=== PATIENT | female | born 1995 | race African-American/Black ===

== ENCOUNTER 2021-03-26 18:00 | Inpatient (IN) | payer OTHER, SELFPAY ==
[2021-03-26 18:14] VITALS: BP 155/73; PULSE 102; RESP 16; TEMP 36.6; O2SAT 92; BMI 56.5
[2021-03-26 18:21] VITALS: BP 155/73; PULSE 102; RESP 16; TEMP 36.6; O2SAT 92
--- NOTE | 2021-03-26 18:40 | ED_ITS ---
HPI - Psych General Chief Complaint: Psychiatric Symptoms Stated Complaint: Crisis Time Seen by Provider: 03/26/21 18:39 Source: patient Mode of arrival: ambulatory Limitations: no limitations History of Present Illness HPI Narrative: 25-year-old female came in for psych evaluation. This is a patient with a history of schizoaffective disorder, PTSD, normally take antipsychotic medication, patient weaned herself of the psych medicine for the past 8 days, came in with complaint of auditory hallucination hearing voices telling her to hurt herself, patient feel suicidal, patient had a strong past history of suicidal attempt by overdose on medications. Patient declined using any recreational drugs. Patient has no headache, no blurry vision, no chest pain, no coughing, no abdominal pain, no nausea, no vomiting, or diarrhea. Related Data Allergies Allergy/AdvReac Type Severity Reaction Status Date / Time tree nut Allergy Anaphylaxis Verified 03/26/21 18:24 Review of Systems Review of Systems: All other systems are reviewed and are negative Constitutional: Reports as per HPI and Reports no additional constitutional complaints Eyes: Reports as per HPI and Reports no additional eye complaints Reports system reviewed and no additional complaints, except as documented Cardiovascular: Reports as per HPI and Reports no additional cardiovascular complaints Respiratory: Reports as per HPI and Reports no additional respiratory complaints Gastrointestinal: Reports as per HPI and Reports no additional gastrointestinal complaints Genitourinary: Reports no additional female genitourinary complaints Musculoskeletal: Reports no additional musculoskeletal complaints Skin/Breast: Reports system reviewed and no additional complaints, except as docu Psychiatric: Reports no additional psychiatric complaints Endocrine: Reports no additional endocrine complaints Hematologic/Lymphatic: Reports no additional hematologic/lymphatic complaints Allergic/Immunologic: Reports no additional allergic/immunologic complaints Reports system reviewed and no additional complaints, except as documented and Reports Abnormal speech present [facility] Past Medical History Medical History Anxiety Continuous auditory hallucinations Depression Suicidal ideations Surgical History No pertinent past surgical history Social History Social History Alcohol intake: unknown Smoked in Last 30 Days: No Use of substances other than those prescribed or required for medical reasons: No Patient : No Physical Exam Vital Signs: Vital Signs: Last Vital Signs Temp 97.9 F 03/26/21 18:21 Pulse 102 H 03/26/21 18:21 Resp 16 03/26/21 18:21 BP 155/73 H 03/26/21 18:21 Pulse Ox 92 03/26/21 18:21 BMI result Body Mass Index 56.5 vital signs have been reviewed as appeared to be correct. Blood pressure Elevated. Heart rate elevated. Respiration rate normal. Temperature normal. Oxygen saturation normal. Appearance: Alert. Oriented X3. No acute distress. Head: Normal external exam. Normocephalic. Atraumatic. No Cox signs noted. No raccoon eyes noted Eyes: PERRLA. EOMI. Conjunctiva and sclera normal. Eyelids normal. ENT: TM's Normal. Pharynx normal. Uvula midline. Moist mucous membranes. No trismus noted. No drooling noted. No muffled voice noted. Neck: Normal inspection. Neck supple. FROM. No adenopathy. Thyroid Normal. No meningeal signs. No neck mass noted. CVS: Normal heart rate and rhythm. Heart sound normal. No murmurs noted. Pulses normal throughout. Respiratory: No respiratory distress. Painless inspiration. Breath sounds normal. No wheezes/rales/rhonchi noted. Chest nontender. No accessory muscle usage noted or decreased air movement noted. Abdomen: Soft and nontender. Bowel sounds normal in all 4 quadrants. No distention noted. No organomegaly noted. No visible injury noted. Back: No CVA tenderness. Full range of motion noted. Skin: Skin warm and dry. Normal skin color. Normal skin turgor. No rashes/lesions/lacerations noted. Extremities: No lower extremity edema. Extremities exhibit normal range of motion. Extremities nontender. Neuro: Oriented X 3. Cranial nerve exam: II-XII are grossly intact No motor deficit. No sensory deficit. Reflexes normal. Patient Appearance: Appropriate Patient Orientation: Person, Place, Time and Situation Level of Consciousness: Awake, Appropriate and Alert Patient Behavior: Talkative, Cooperative. Mood Description: Depressed. Affect Description: Flat. Patient Cognition Impaired: No Ability to Follow Directions: Good Speech Pattern: Spontaneous Speech Memory Description: Intact Hallucinations: auditory hallucination present. Delusions: Not Present Thought Process: Logical. Thought Content: Unremarkable Depressive Symptoms: Increased anxiety. Judgement: poor. Course Course Course Narrative: assessment and plan. 25-year-old female came in for a psych evaluation, patient is medically cleared awaiting for PH evaluation patient will be under physician observation. Reevaluation(s) Reevaluation #1: Physician observation started at 20:00 . Patient placed in physician observation because the patient needed more time for medication to work and to see PT/case management for evaluation and the need for placement patient's vital sign were stable, patient is alert and oriented , neuro exam unchanged, unremarkable rest of physical exam. Time: 20:00 Discharge Plan Discharge Clinical Impression: Suicidal ideation, Depression, Acute anxiety, Schizoaffective disorder
[2021-03-26 19:16] LABS: Appearance Urine CLEAR; Color Urine YELLOW; Glucose Urine UA NEG (NEG); Leukocyte Esterase Urine TRACE (NEG); Nitrite Urine NEG (NEG); Specific Gravity - Urine 1.025 (1.005-1.025); UACC Culture Trigger YES; Urine Blood 1+ (NEG); Urine Ketones NEG (NEG); Urine Protein TRACE MG/DL (NEG-TRACE)
[2021-03-26 19:18] LABS: UPreg QC Valid YES; Urine Pregnancy NEGATIVE (NEGATIVE)
[2021-03-26 19:27] LABS: Bacteria Urine TRACE /LPF; Squamous Epithelial Cell Urine 2+ /LPF
[2021-03-26 19:28] LABS: Mucus Urine 1+ /LPF
[2021-03-26] MEDS: LORazepam 1 MG TABLET PO (19:30)
[2021-03-26 19:37] LABS: COVID-19 Test Negative (Negative); IDNOW Serial# 9DD0AD1C
--- NOTE | 2021-03-26 19:40 | PC.NURSE ---
PT is calm and cooperative, politely requested the remote to watch TV in her room. Labs drawn. PT needs referral and crisis consult.
[2021-03-26 19:44] LABS: MANUAL DIFF FLAG NO
[2021-03-26 19:46] LABS: Basophils Percent Auto 0.3 % (0-2); Eosinophils Absolute Auto 0.3 X10*3/uL (0.0-0.4); Eosinophils Percent Auto 2.9 % (0-4); Hematocrit 39.1 % (37.0-47.0); Hemoglobin 13.2 g/dl (12.0-16.0); Imm Gran Abs Auto 0.02 X10*3/uL (0.00-0.03); Imm Gran Pct Auto 0.2 % (0.0-0.4); Lymphocytes Absolute Auto 2.8 X10*3/uL (1.2-4.9); Lymphocytes Percent Auto 32.4 % (20-40); Mean Corpuscular HGB Conc 33.8 g/dl (31.0-35.0); Mean Corpuscular Hemoglobin 29.8 pg (27.0-33.0); Mean Corpuscular Volume 88.3 fL (80.0-98.0); Mean Platelet Volume 9.7 fL (9.4-12.3); Monocytes Absolute Auto 0.5 X10*3/uL (0.1-1.2); Monocytes Percent Auto 5.4 % (2-11); Neutrophils Absolute Auto 5.1 x10*3/uL (2.0-8.3); Neutrophils Percent Auto 58.8 % (45-73); Platelet Count 335 X10*3/uL (160-400); Red Blood Count 4.43 X10*6/uL (4.20-5.50); Red Cell Distribution Width 11.5 % (11.0-16.0); White Blood Count 8.7 X10*3/uL (4.8-10.8)
[2021-03-26 19:59] LABS: Ethanol < 10 mg/dL
[2021-03-26 20:02] LABS: Alanine Aminotransferase 37 U/L (0-31); Albumin Level 4.1 g/dL (3.5-5.0); Alkaline Phosphatase 130 U/L (39-117); Anion Gap 14 (12-20); Aspartate Amino Transferase 24 U/L (5-31); Bilirubin Total 0.2 mg/dL (0.0-1.0); Blood Urea Nitrogen 13 mg/dL (9-16); Calcium 9.5 mg/dL (8.4-10.2); Carbon Dioxide 23 mmol/L (22-29); Chloride 110 mmol/L (96-108); Creatinine Clr Calc Pharmacy 166.9; Estimated Glomerular Filt Rate > 60; Glucose Random 104 mg/dL (60-115); Potassium 3.8 mmol/L (3.3-5.1); Sodium 143 mmol/L (135-145); Total Protein 7.1 g/dL (6.5-8.0)
[2021-03-26 21:28] LABS: Amphetamine Screen Urine Not Detected (Not Detect); Barbiturates, Urine Not Detected (Not Detect); Benzodiazepines Screen Urine Not Detected (Not Detect); Cannabinoid Screen Urine Not Detected (Not Detect); Cocaine Screen Urine Not Detected (Not Detect); Fentanyl, urine Not Detected (Not Detect); Opiate Screen Urine Not Detected (Not Detect); Phencyclidine Screen Urine Not Detected (Not Detect)
--- NOTE | 2021-03-26 23:17 | PC.NURSE ---
This RN spoke with provider about concerns for restarting medications after PT discontinued meds 8 days ago, with special consideration to antipsychotics. Dr. Paez agreed that we hold meds until PT received psychiatric eval. PT has received Ativan for anxiety and is sleeping comfortably in bed at this time.
[2021-03-27 06:14] VITALS: BP 132/72; PULSE 65; RESP 16; TEMP 37.2; O2SAT 99
--- NOTE | 2021-03-27 09:40 | PC.NURSE ---
Addendum entered by Mariann Garcia RN 03/27/21 09:46: As per ISHAAN, prozac 30mg to be given now and hold 60mg until tomorrow. As well as oxcarbazepine 300mg to be given now and to hold 600mg until tomorrow. Original Note: ISHAAN Fuller made aware that pt has been off her medications for the past 8 days and that pt has ordered medications that were questionable. Medication orders modified by ISHAAN and carried out by this RN.
[2021-03-27 10:25] VITALS: BP 115/65; PULSE 70; RESP 16; TEMP 36.9; O2SAT 98
[2021-03-27] MEDS: Gabapentin 100 MG CAPSULE PO ×2 (10:40→12:54)
[2021-03-27] MEDS: FLUoxetine HCl 10 MG CAPSULE 30 MG PO (10:40)
[2021-03-27] MEDS: metFORMIN HCl ER 500 MG TAB.ER.24H PO (10:41)
[2021-03-27] MEDS: Loratadine 10 MG TABLET PO (10:42)
[2021-03-27] MEDS: hydrOXYzine HCL 50 MG TABLET PO (10:42)
[2021-03-27] MEDS: OXcarbazepine 300 MG TABLET PO ×2 (10:42→12:32)
--- NOTE | 2021-03-27 10:52 | PC.NURSE ---
Pt refused naproxen and hydroxyzine as she states both medications are PRN. During morning medication pass, pt stated that her med rec is incorrect and she denied that she has been off her medications for the past 8 days.
--- NOTE | 2021-03-27 10:57 | PC.NURSE ---
Pt given breakfast tray, sat up and tolerated well
--- NOTE | 2021-03-27 11:18 | PC.NURSE ---
ISHAAN Fuller made aware that pt is stating that she has been taking her medications for the past 8 days and is requesting dosage changes for her ordered prozac, gabapentin. PA stated gabapentin orders will remain the same however prozac orders are now reordered for 60mg D. Pharmacy made aware of changes and pharmacist stated they would like to double check on pt's med rec as well. RN will continue to monitor.
--- NOTE | 2021-03-27 11:53 | PHA.MEDREC ---
Pharmacy Consult ? Medication Reconciliation Pharmacy has completed the medication reconciliation. Spoke with patient in [facility]. Patient knew all of her medications right down to the dose and frequency. She reported last taking her medications yesterday. Patient reported Latuda ( taper) and fluphenazine were stopped. Pt took one dose of fluconazole 150 mg 1 week ago. Her trileptal dose was increased from 450 mg BID to 600 mg BID.
[2021-03-27] MEDS: FLUoxetine HCl 20 MG CAPSULE 60 MG PO (12:10)
[2021-03-27] MEDS: Fluconazole 150 MG TABLET PO (13:11)
[2021-03-27 15:16] VITALS: BP 148/82; PULSE 86; RESP 20; TEMP 37.6; O2SAT 95
--- NOTE | 2021-03-27 15:46 | PC.NURSE ---
Pt up to nursing station requesting her ears to be checked, as her increased ear wax accumulation can irritate her auditory hallucinations. ISHAAN Rodriguez at bedside and received PO PRN tylenol for ears.
--- NOTE | 2021-03-27 15:55 | PC.NURSE ---
LESLIE Perez at bedside for reevaluation
[2021-03-27] MEDS: Gabapentin 100 MG CAPSULE 200 MG PO ×2 (16:20→21:18)
[2021-03-27] MEDS: LORazepam 0.5 MG TABLET PO (16:20)
[2021-03-27] MEDS: Acetaminophen 325 MG TABLET 650 MG PO (16:20)
--- NOTE | 2021-03-27 16:34 | PC.NURSE ---
Post [facility] reevaluation by darren Perez, pt to be reevaulated some time tomorrow, as pt states she wants to go home but wants to go with prescriptions for anti-psychotics. Pt is from [facility] ([phone]) and her psychiatrist can be reached at ([phone]). Also as per screensivan Perez, pt's medications were stopped cold as per her psychiatrist as pt herself stated she no longer wanted to take them... unknown when the exact date of this was. Pt at this time was given ordered PRN medications and RN will continue to monitor.
--- NOTE | 2021-03-27 18:47 | PC.NURSE ---
Pt received dinner tray at this time
[2021-03-27] MEDS: OXcarbazepine 300 MG TABLET 600 MG PO (21:18)
[2021-03-27] MEDS: Melatonin 3 MG TABLET PO (21:18)
--- NOTE | 2021-03-27 21:25 | PC.NURSE ---
pt took all her meds with no difficutly, pt states she is hearing voices talking to each other, no thoughts of harming self or others at this time. pt awake sitting in her room, pt has been on the phone earlier and had pleasant conversations very upbeat.
--- NOTE | 2021-03-28 05:39 | PC.NURSE ---
Patient slept though the night, no distress observed/reported, medication compliant per report, VSS, behavior appropriate mostly at time can be manipulative, patient was seen by [facility], disposition voluntary inpatient bed search, per care team patient is pre-accepted to [facility], will continue to monitor.
[2021-03-28 06:31] VITALS: BP 137/60; PULSE 83; RESP 17; TEMP 36.6; O2SAT 96
[2021-03-28] MEDS: FLUoxetine HCl 20 MG CAPSULE 60 MG PO (09:59)
[2021-03-28] MEDS: Gabapentin 100 MG CAPSULE 200 MG PO ×3 (09:59→21:11)
[2021-03-28 10:00] VITALS: BP 132/96; PULSE 77; RESP 16; TEMP 36.6; O2SAT 97
[2021-03-28] MEDS: OXcarbazepine 300 MG TABLET 600 MG PO ×3 (10:00→21:30)
[2021-03-28] MEDS: Loratadine 10 MG TABLET PO (10:03)
[2021-03-28] MEDS: metFORMIN HCl ER 500 MG TAB.ER.24H PO (10:44)
--- NOTE | 2021-03-28 13:29 | PC.NURSE ---
report given to Veronique on [facility], staff from [facility] will come to ED Pod to transport pt to [facility]. Pt aware of plan.
--- NOTE | 2021-03-28 13:42 | ECG_ITS ---
Test Reason : MEDCLEARANCE Blood Pressure : / mmHG Vent. Rate : 081 BPM Atrial Rate : 081 BPM P-R Int : 176 ms QRS Dur : 076 ms QT Int : 386 ms P-R-T Axes : 056 031 017 degrees QTc Int : 448 ms Normal sinus rhythm Normal ECG No previous ECGs available Referred By: Rodrigue Thibodeaux Electronically Signed By:SOY PAZ MD
[2021-03-28] MEDS: LORazepam 0.5 MG TABLET PO ×2 (16:47→17:53)
[2021-03-28 17:00] VITALS: BP 129/83; PULSE 88; TEMP 36.6; O2SAT 96
[2021-03-28 19:28] VITALS: BMI 51.2
[2021-03-28] MEDS: Melatonin 3 MG TABLET PO (21:12)
[2021-03-28] MEDS: hydrOXYzine HCL 25 MG TABLET PO (21:14)
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
[2021-03-28] MEDS: LORazepam 1 MG TABLET PO (22:55)
--- NOTE | 2021-03-29 01:02 | PC.ADMIT ---
Patient is a 25 year old single -[place] female admitted as a CV admission to at 1509 on 03/28/2021 from the [facility]. She was living in a jail but has not been wanting to take her antipsychotic medications and has started to decompensate. Patient has been experiencing SI with a plan to jump off a parking garage or hang herself. She has a long history of Schizoaffective disorder with many IPLOC to local hospitals and places in [place]. Patient claimed she has had about 20 suicide attempts. Patient also said that she has AH and VH that bother her most of the time. She said there are two male voices that tell me I should harm myself and others .' Patient also spoke about her IBS and problems swallowing. Apparently she has a barium swallow scheduled in April of 2021. During the admission process patient contracted for safety, while on the unit, and spoke about the medications that she feels that she needs to keep her calm. Patient was able to sign all of the paperwork and answer all of the questions. She said both her anxiety and depression are high . Denies any SI or HI. She was able to take a shower and make phone calls. Patient cooperative and in NAD at the end of the shift. Patient will be on 15 minute checks.
[2021-03-29 08:24] LABS: Estimated Average Glucose 103 mg/dL; Hemoglobin A1c % 5.2 %
[2021-03-29 08:40] LABS: Cholesterol 217 mg/dL; HDL Cholesterol 42 mg/dL; LDL Cholesterol Calculated 160 mg/dl; Triglycerides 75 mg/dL
[2021-03-29 09:03] LABS: Free T4 (Free Thyroxine) 0.89 ng/dL (0.71-1.85); Thyroid Stimulating Hormone 1.59 uIU/mL (0.32-4.0)
[2021-03-29] MEDS: metFORMIN HCl ER 500 MG TAB.ER.24H PO (09:35)
[2021-03-29] MEDS: Gabapentin 100 MG CAPSULE 200 MG PO ×3 (09:35→19:19)
[2021-03-29] MEDS: OXcarbazepine 300 MG TABLET 600 MG PO (09:35)
[2021-03-29] MEDS: Loratadine 10 MG TABLET PO (09:35)
[2021-03-29] MEDS: FLUoxetine HCl 20 MG CAPSULE 60 MG PO (09:35)
--- NOTE | 2021-03-29 10:02 | PC.NURSE ---
patient denies ever being a smoker and will not require replacement. Patient was offered the flu vaccination and declined, stating she already had it this year.
[2021-03-29 10:29] LABS: Folate 10.7 ng/mL (> or = 4.0); Vitamin B12 863 pg/mL (200-900)
[2021-03-29] MEDS: Perphenazine 4 MG TABLET PO ×2 (14:44→18:13)
[2021-03-29] MEDS: LORazepam 1 MG TABLET PO (17:40)
--- NOTE | 2021-03-29 19:11 | HO.PSYCHPN ---
Subjective Subjective Date of Service: 03/29/21 Reason For Visit: PTSD; Schizoaffective disorder Subjective Notes: Conditional Voluntary Healthcare Proxy: No Guardianship: No Medical Problems Affecting Mental Status: No Interim History: Met with pt who reports several trials as reviewed with Katherine Cochran NP on 03/28/21. Pt reports, by history, antispychotics are helpful for her, however, identifies improved result with typical vs atypical agents. She reports she felt clearest on Trilafon, Prolixin, Haldol, however, believes Trilafon, Prolixin may not have been titrated to achieve maximum efficacy. Pt requests to address symptoms, she is cautious about side effects and would like a short stay. She asks to trial Trilafon again. Discussed 4 mg tid with one prn 4 mg with titration on 03/30 as tolerated which she agrees with. Discussion continued regarding MENDEZ. Discussed Sustenna, Prolixin, Haldol Dec. She is not wanting a trial of Maintena but will consider. She requests we being with one agent-will titrate Trilafon and [id number] parameters with pt. Medication Compliance: No Side effects from medications: Yes (reported by history) Attending Groups: No Review of Systems Acute medical concerns: No Medical Review of Systems: unchanged Review of Systems Reports behavioral changes Psychiatric: Reports anxiety, Reports behavioral changes, Reports difficulty concentrating, Reports auditory hallucinations (denies), Reports irritability, Reports paranoia (at times), Reports homicidal ideation (denies) and Reports suicidal ideation (denies) Mental Status Exam Mental Status Exam Patient Appearance: Fatigued Patient Orientation: Person, Place, Time and Situation Level of Consciousness: Alert Patient Behavior: Appropriate, Talkative, Cooperative, Anxious, Fatigued and Good Eye Contact Mood Description: Withdrawn and Constricted Affect Description: Constricted Patient Cognition Impaired: No Ability to Follow Directions: Good Speech Pattern: Spontaneous Speech Memory Description: Episodic Impaired Hallucinations: None (denies) Delusions: Paranoid Ideation (at times she reports) Thought Process: Distracted Thought Content: positive for Perseveration, positive for Tangential (mild), positive for Suicidal Ideation (denies) and positive for Homicidal Ideation (denies) Depressive Symptoms: Increased Anxiety, Diff. Making Decisions, Increased Irritability, Difficulty Sleeping, Sleeping More Than Usual, Increased Fatigue and Loss of Energy Judgement: Fair Diagnostics Vital Signs (24Hr): BMI result Body Mass Index 51.2 Labs Results: 03/26/21 19:37 03/26/21 19:37 Labs: Laboratory Results - last 48 hr 03/29/21 03/29/21 03/29/21 07:56 07:56 07:56 Estimat Average Glucose 103 Hemoglobin A1c % 5.2 Magnesium 2.0 Triglycerides 75 Cholesterol 217 LDL Cholesterol, Calc 160 HDL Cholesterol 42 Vitamin B12 863 Folate 10.7 TSH 1.59 Free T4 0.89 Medications Medications Current Medications Al Hydroxide/Mg Hydroxide (Magnesium Hydrox/Alum Hydrox 30 Ml Oral.Susp) 30 ml PO Q6H PRN PRN Reason: Heartburn/Nausea Albuterol Sulfate (Albuterol Sulfate 90 Mcg 8 Gm Inhaler) 2 puff INHALE RQ4H PRN PRN Reason: Shortness Of Breath Fluoxetine HCl (Fluoxetine Hcl 20 Mg Capsule) 60 mg PO DAILY [facility] Last Admin: 03/29/21 09:35 Dose: 60 mg Documented by: Fluticasone/Vilanterol (Fluticasone/Vilanterol 100/25 Blst.W.Dev) 1 puff INHALE DAILY [facility] Last Admin: 03/29/21 09:38 Dose: Not Given Documented by: Gabapentin (Gabapentin 100 Mg Capsule) 200 mg PO TID [facility] Last Admin: 03/29/21 14:44 Dose: 200 mg Documented by: Hydroxyzine HCl (Hydroxyzine Hcl 50 Mg Tablet) 50 mg PO TID PRN PRN Reason: anxiety Hydroxyzine HCl (Hydroxyzine Hcl 25 Mg Tablet) 25 mg PO BEDTIME PRN PRN Reason: Anxiety Last Admin: 03/28/21 21:14 Dose: 25 mg Documented by: Loratadine (Loratadine 10 Mg Tablet) 10 mg PO DAILY [facility] Last Admin: 03/29/21 09:35 Dose: 10 mg Documented by: Lorazepam (Lorazepam 1 Mg Tablet) 1 mg PO BID PRN PRN Reason: Anxiety Last Admin: 03/29/21 17:40 Dose: 1 mg Documented by: Magnesium Hydroxide (Milk Of Magnesia 30 Ml Oral.Susp) 30 ml PO DAILY PRN PRN Reason: Constipation Melatonin (Melatonin 3 Mg Tablet) 3 mg PO BEDTIME [facility] Last Admin: 03/28/21 21:12 Dose: 3 mg Documented by: Metformin HCl (Metformin Hcl Er 500 Mg Tab.Er.24h) 500 mg PO DAILY [facility] Last Admin: 03/29/21 09:35 Dose: 500 mg Documented by: Naproxen (Naproxen 500 Mg Tablet) 500 mg PO BID PRN PRN Reason: mild pain Oxcarbazepine (Oxcarbazepine 300 Mg Tablet) 600 mg PO BID [facility] Last Admin: 03/29/21 09:35 Dose: 600 mg Documented by: Perphenazine (Perphenazine 4 Mg Tablet) 4 mg PO TID [facility] Last Admin: 03/29/21 14:44 Dose: 4 mg Documented by: Perphenazine (Perphenazine 4 Mg Tablet) 4 mg PO DAILY PRN PRN Reason: voices Last Admin: 03/29/21 18:13 Dose: 4 mg Documented by: Trazodone HCl (Trazodone Hcl 50 Mg Tablet) 50 mg PO BEDTIME PRN PRN Reason: Insomnia Allergies Allergies Allergy/AdvReac Type Severity Reaction Status Date / Time tree nut Allergy Anaphylaxis Verified 03/26/21 18:24 Assessment & Plan Assessment & Plan (1) Schizoaffective disorder, depressive type: Status: Acute Code(s): F25.1 - Schizoaffective disorder, depressive type (2) JUSTEN (generalized anxiety disorder): Status: Acute Code(s): F41.1 - Generalized anxiety disorder (3) Autism spectrum disorder: Status: Acute Code(s): F84.0 - Autistic disorder Assessment and Plan: Pt is a 25 y.o. Female who carries a dx of schizoaffective DO, JUSTEN, ASD, and BPD. Pt reports non-adherence on prolixin and latuda x 8 days and since then she has had worsening command AH and suicidal thoughts. Pt currently denies SI/SIB and says she feels safe on the unit. She is help seeking and a strong advocate for her mental health. She currently resides in a [facility] half-way and has OP services. Plan: Pt would like to re-start an antipsychotic medication. Says she did well on prolixin but it stopped working, wonders about taking a higher dose. Pt is also interested in MENDEZ. Also discussed haldol, as pt has tried this in the past with good effect, however pt is concerned with possible SE of TD, reports hx of oral facial/ eye tics (although unrelated to medication and denies that these bother her). Pt reports she tries not to take ativan but ?if im really down and i just need to calm down and sleep then i?ll take it,? however denies that 0.5 mg dose helps. Will increase ativan to 1 mg BID PRN, as she does not have abuse history.? 03/29/21: Pt seen at 12pm, she had just awoken for the day. She is alert, oriented, denies current symptoms but presents a history of symptoms which she wants to treat as she had achieved efficacy in the past. Denies SI, HI, plan or intent. Denies current perceptual alterations, denies current sx of paranoia, although does report some anxiety about this being her first admission. Review of medications. Pt would like to retrial Trilafon or Prolixin-asks for Trilafon trial. Will consider MENDEZ but asks that we titrate Trilafon first. Plan: Trilafon 4 mg tid and 4 mg daily prn If tolerated will titrate on 03/30. I spent 35 minutes with the patient and/or on the patient floor today, greater than?50% of which was spent counseling/coordinating care. Patient educated on: diagnosis, medication risk/benefits and therapeutic strategies Informed Consent: further education needed Reason for contiued inpatient stay Substantial Risk for: harm to self, inability to function and rapid decompensation
[2021-03-29] MEDS: HaloperidoL 5 MG TABLET 10 MG PO (19:19)
[2021-03-29] MEDS: LORazepam 1 MG TABLET 2 MG PO (19:20)
[2021-03-29] MEDS: Fluticasone/Vilanterol 100/25 BLST.W.DEV 1 PUFF INHALE (19:26)
[2021-03-30 06:00] VITALS: BP 128/67; PULSE 89; TEMP 36.1; O2SAT 97
[2021-03-30] MEDS: Gabapentin 100 MG CAPSULE 200 MG PO ×3 (10:26→20:14)
[2021-03-30] MEDS: OXcarbazepine 300 MG TABLET 600 MG PO ×2 (10:26→20:14)
[2021-03-30] MEDS: metFORMIN HCl ER 500 MG TAB.ER.24H PO (10:26)
[2021-03-30] MEDS: Loratadine 10 MG TABLET PO (10:26)
[2021-03-30] MEDS: Perphenazine 4 MG TABLET PO (10:26)
[2021-03-30] MEDS: Perphenazine 8 MG TABLET PO ×2 (14:30→20:15)
[2021-03-30 18:00] VITALS: BP 135/86; PULSE 96; TEMP 36.1; O2SAT 97
--- NOTE | 2021-03-30 18:36 | HO.PSYCHPN ---
Subjective Subjective Date of Service: 03/30/21 Reason For Visit: PTSD; Schizoaffective disorder Subjective Notes: Conditional Voluntary Healthcare Proxy: No Guardianship: No Medical Problems Affecting Mental Status: No Interim History: Review of pt's elopement attempt on 03/29. She reports voices commanding her to leave is the rationale. Discussed risks of elopement. Found Haldol/Ativan helpful after this incident, however asks to continue with Trilafon titration. Team reports, by history, pt elopes regularly and this is considered a well-established coping mechanism. Pt, discussed her frustration with her OP team for letting my try it without an antipsychotic . Discussed the benefits of wash out on occasion, especially when symptom presentation has been complex. Medication Compliance: Yes Side effects from medications: No Attending Groups: Yes Review of Systems Acute medical concerns: No Medical Review of Systems: unchanged Review of Systems Reports behavioral changes Psychiatric: Reports anxiety, Reports behavioral changes, Reports difficulty concentrating, Reports auditory hallucinations (denies), Reports irritability, Reports paranoia (at times), Reports homicidal ideation (denies) and Reports suicidal ideation (denies) Mental Status Exam Mental Status Exam Patient Appearance: Fatigued Patient Orientation: Person, Place, Time and Situation Level of Consciousness: Alert Patient Behavior: Appropriate, Talkative, Cooperative, Anxious, Fatigued and Good Eye Contact Mood Description: Withdrawn and Constricted Affect Description: Constricted Patient Cognition Impaired: No Ability to Follow Directions: Good Speech Pattern: Spontaneous Speech Memory Description: Episodic Impaired Hallucinations: None (denies) Delusions: Paranoid Ideation (at times she reports) Thought Process: Distracted Thought Content: positive for Perseveration, positive for Tangential (mild), positive for Suicidal Ideation (denies) and positive for Homicidal Ideation (denies) Depressive Symptoms: Increased Anxiety, Diff. Making Decisions, Increased Irritability, Difficulty Sleeping, Sleeping More Than Usual, Increased Fatigue and Loss of Energy Judgement: Fair Diagnostics Vital Signs (24Hr): Vital Signs - 24 hr 03/30/21 06:00 Temperature 96.9 F Pulse Rate 89 Blood Pressure 128/67 Pulse Oximetry 97 BMI result Body Mass Index 51.2 Labs Results: 03/26/21 19:37 03/26/21 19:37 Labs: Laboratory Results - last 48 hr 03/29/21 03/29/21 03/29/21 07:56 07:56 07:56 Estimat Average Glucose 103 Hemoglobin A1c % 5.2 Magnesium 2.0 Triglycerides 75 Cholesterol 217 LDL Cholesterol, Calc 160 HDL Cholesterol 42 Vitamin B12 863 Folate 10.7 TSH 1.59 Free T4 0.89 Medications Medications Current Medications Al Hydroxide/Mg Hydroxide (Magnesium Hydrox/Alum Hydrox 30 Ml Oral.Susp) 30 ml PO Q6H PRN PRN Reason: Heartburn/Nausea Albuterol Sulfate (Albuterol Sulfate 90 Mcg 8 Gm Inhaler) 2 puff INHALE RQ4H PRN PRN Reason: Shortness Of Breath Fluoxetine HCl (Fluoxetine Hcl 20 Mg Capsule) 60 mg PO DAILY [facility] Last Admin: 03/29/21 09:35 Dose: 60 mg Documented by: Fluticasone/Vilanterol (Fluticasone/Vilanterol 100/25 Blst.W.Dev) 1 puff INHALE DAILY [facility] Last Admin: 03/30/21 10:27 Dose: Not Given Documented by: Gabapentin (Gabapentin 100 Mg Capsule) 200 mg PO TID [facility] Last Admin: 03/30/21 14:30 Dose: 200 mg Documented by: Hydroxyzine HCl (Hydroxyzine Hcl 50 Mg Tablet) 50 mg PO TID PRN PRN Reason: anxiety Hydroxyzine HCl (Hydroxyzine Hcl 25 Mg Tablet) 25 mg PO BEDTIME PRN PRN Reason: Anxiety Last Admin: 03/28/21 21:14 Dose: 25 mg Documented by: Loratadine (Loratadine 10 Mg Tablet) 10 mg PO DAILY [facility] Last Admin: 03/30/21 10:26 Dose: 10 mg Documented by: Lorazepam (Lorazepam 1 Mg Tablet) 1 mg PO BID PRN PRN Reason: Anxiety Last Admin: 03/29/21 17:40 Dose: 1 mg Documented by: Magnesium Hydroxide (Milk Of Magnesia 30 Ml Oral.Susp) 30 ml PO DAILY PRN PRN Reason: Constipation Melatonin (Melatonin 3 Mg Tablet) 3 mg PO BEDTIME [facility] Last Admin: 03/29/21 22:19 Dose: Not Given Documented by: Metformin HCl (Metformin Hcl Er 500 Mg Tab.Er.24h) 500 mg PO DAILY [facility] Last Admin: 03/30/21 10:26 Dose: 500 mg Documented by: Naproxen (Naproxen 500 Mg Tablet) 500 mg PO BID PRN PRN Reason: mild pain Oxcarbazepine (Oxcarbazepine 300 Mg Tablet) 600 mg PO BID [facility] Last Admin: 03/30/21 10:26 Dose: 600 mg Documented by: Perphenazine (Perphenazine 4 Mg Tablet) 4 mg PO DAILY PRN PRN Reason: voices Last Admin: 03/29/21 18:13 Dose: 4 mg Documented by: Perphenazine (Perphenazine 8 Mg Tablet) 8 mg PO TID [facility] Last Admin: 03/30/21 14:30 Dose: 8 mg Documented by: Trazodone HCl (Trazodone Hcl 50 Mg Tablet) 50 mg PO BEDTIME PRN PRN Reason: Insomnia Allergies Allergies Allergy/AdvReac Type Severity Reaction Status Date / Time tree nut Allergy Anaphylaxis Verified 03/26/21 18:24 Assessment & Plan Assessment & Plan (1) Schizoaffective disorder, depressive type: Status: Acute Code(s): F25.1 - Schizoaffective disorder, depressive type (2) JUSTEN (generalized anxiety disorder): Status: Acute Code(s): F41.1 - Generalized anxiety disorder (3) Autism spectrum disorder: Status: Acute Code(s): F84.0 - Autistic disorder Assessment and Plan: Pt is a 25 y.o. Female who carries a dx of schizoaffective DO, JUSTEN, ASD, and BPD. Pt reports non-adherence on prolixin and latuda x 8 days and since then she has had worsening command AH and suicidal thoughts. Pt currently denies SI/SIB and says she feels safe on the unit. She is help seeking and a strong advocate for her mental health. She currently resides in a [facility] and has OP services. Plan: Pt would like to re-start an antipsychotic medication. Says she did well on prolixin but it stopped working, wonders about taking a higher dose. Pt is also interested in MENDEZ. Also discussed haldol, as pt has tried this in the past with good effect, however pt is concerned with possible SE of TD, reports hx of oral facial/ eye tics (although unrelated to medication and denies that these bother her). Pt reports she tries not to take ativan but ?if im really down and i just need to calm down and sleep then i?ll take it,? however denies that 0.5 mg dose helps. Will increase ativan to 1 mg BID PRN, as she does not have abuse history.? 03/29/21: Pt seen at 12pm, she had just awoken for the day. She is alert, oriented, denies current symptoms but presents a history of symptoms which she wants to treat as she had achieved efficacy in the past. Denies SI, HI, plan or intent. Denies current perceptual alterations, denies current sx of paranoia, although does report some anxiety about this being her first admission. Review of medications. Pt would like to retrial Trilafon or Prolixin-asks for Trilafon trial. Will consider MENDEZ but asks that we titrate Trilafon first. Plan: Trilafon 4 mg tid and 4 mg daily prn If tolerated will titrate on 03/30. 03/30/21 Increase Trilafon to 8 mg tid. I spent 35 minutes with the patient and/or on the patient floor today, greater than?50% of which was spent counseling/coordinating care. Patient educated on: medication risk/benefits and therapeutic strategies Informed Consent: understands Reason for contiued inpatient stay Substantial Risk for: harm to self, inability to function and rapid decompensation
[2021-03-30] MEDS: Melatonin 3 MG TABLET PO (20:15)
[2021-03-30 20:39] LABS: COVID-19 Test Negative (Negative); IDNOW Serial# 08D9AD1C
[2021-03-31] MEDS: Gabapentin 100 MG CAPSULE 200 MG PO ×3 (11:41→20:18)
[2021-03-31] MEDS: Loratadine 10 MG TABLET PO (11:42)
[2021-03-31] MEDS: metFORMIN HCl ER 500 MG TAB.ER.24H PO (11:42)
[2021-03-31] MEDS: Perphenazine 8 MG TABLET PO ×2 (11:42→16:13)
[2021-03-31] MEDS: OXcarbazepine 300 MG TABLET 600 MG PO ×2 (11:42→20:19)
[2021-03-31] MEDS: LORazepam 1 MG TABLET PO (16:13)
[2021-03-31 18:00] VITALS: BP 125/58; PULSE 100; TEMP 37.1
[2021-03-31] MEDS: Melatonin 3 MG TABLET PO (20:18)
[2021-03-31] MEDS: Perphenazine 4 MG TABLET 12 MG PO (20:19)
--- NOTE | 2021-03-31 21:02 | P.PNPSI_ITS ---
Subjective Subjective Date of Service: 03/31/21 Reason For Visit: PTSD; Schizoaffective disorder Subjective Notes: Conditional Voluntary Healthcare Proxy: No Guardianship: No Medical Problems Affecting Mental Status: No Interim History: Pt reports she is tolerating titration of medication and is feeling some improvement. Today, she has offered support to other peers and has attended group. She is hoping for more coping skills groups. She discussed using music, journaling and blogging to assist her in symptom mgt and coping. Medication Compliance: Yes Side effects from medications: No Attending Groups: Yes Review of Systems Acute medical concerns: No Medical Review of Systems: unchanged Review of Systems Reports behavioral changes Psychiatric: Reports anxiety, Reports behavioral changes, Reports difficulty concentrating, Reports auditory hallucinations (denies), Reports irritability, Reports paranoia (at times), Reports homicidal ideation (denies) and Reports suicidal ideation (denies) Mental Status Exam Mental Status Exam Patient Appearance: Fatigued Patient Orientation: Person, Place, Time and Situation Level of Consciousness: Alert Patient Behavior: Appropriate, Talkative, Cooperative, Anxious, Fatigued and Good Eye Contact Mood Description: Withdrawn and Constricted Affect Description: Constricted Patient Cognition Impaired: No Ability to Follow Directions: Good Speech Pattern: Spontaneous Speech Memory Description: Episodic Impaired Hallucinations: None (denies) Delusions: Paranoid Ideation (at times she reports) Thought Process: Distracted Thought Content: positive for Perseveration, positive for Tangential (mild), positive for Suicidal Ideation (denies) and positive for Homicidal Ideation (denies) Depressive Symptoms: Increased Anxiety, Diff. Making Decisions, Increased Irritability, Difficulty Sleeping, Sleeping More Than Usual, Increased Fatigue and Loss of Energy Judgement: Fair Diagnostics Vital Signs (24Hr): BMI result Body Mass Index 51.2 Labs Results: 03/26/21 19:37 03/26/21 19:37 Labs: Laboratory Results - last 48 hr 03/30/21 20:01 COVID-19 ([facility]) Negative COVID-19 Clin Com See Note Medications Medications Current Medications Al Hydroxide/Mg Hydroxide (Magnesium Hydrox/Alum Hydrox 30 Ml Oral.Susp) 30 ml PO Q6H PRN PRN Reason: Heartburn/Nausea Albuterol Sulfate (Albuterol Sulfate 90 Mcg 8 Gm Inhaler) 2 puff INHALE RQ4H PRN PRN Reason: Shortness Of Breath Fluoxetine HCl (Fluoxetine Hcl 20 Mg Capsule) 60 mg PO DAILY [facility] Last Admin: 03/29/21 09:35 Dose: 60 mg Documented by: Fluticasone/Vilanterol (Fluticasone/Vilanterol 100/25 Blst.W.Dev) 1 puff INHALE DAILY [facility] Last Admin: 03/31/21 11:42 Dose: Not Given Documented by: Gabapentin (Gabapentin 100 Mg Capsule) 200 mg PO TID [facility] Last Admin: 03/31/21 20:18 Dose: 200 mg Documented by: Hydroxyzine HCl (Hydroxyzine Hcl 50 Mg Tablet) 50 mg PO TID PRN PRN Reason: anxiety Hydroxyzine HCl (Hydroxyzine Hcl 25 Mg Tablet) 25 mg PO BEDTIME PRN PRN Reason: Anxiety Last Admin: 03/28/21 21:14 Dose: 25 mg Documented by: Loratadine (Loratadine 10 Mg Tablet) 10 mg PO DAILY [facility] Last Admin: 03/31/21 11:42 Dose: 10 mg Documented by: Lorazepam (Lorazepam 1 Mg Tablet) 1 mg PO BID PRN PRN Reason: Anxiety Last Admin: 03/31/21 16:13 Dose: 1 mg Documented by: Magnesium Hydroxide (Milk Of Magnesia 30 Ml Oral.Susp) 30 ml PO DAILY PRN PRN Reason: Constipation Melatonin (Melatonin 3 Mg Tablet) 3 mg PO BEDTIME [facility] Last Admin: 03/31/21 20:18 Dose: 3 mg Documented by: Metformin HCl (Metformin Hcl Er 500 Mg Tab.Er.24h) 500 mg PO DAILY [facility] Last Admin: 03/31/21 11:42 Dose: 500 mg Documented by: Naproxen (Naproxen 500 Mg Tablet) 500 mg PO BID PRN PRN Reason: mild pain Oxcarbazepine (Oxcarbazepine 300 Mg Tablet) 600 mg PO BID [facility] Last Admin: 03/31/21 20:19 Dose: 600 mg Documented by: Perphenazine (Perphenazine 4 Mg Tablet) 4 mg PO DAILY PRN PRN Reason: voices Last Admin: 03/29/21 18:13 Dose: 4 mg Documented by: Perphenazine (Perphenazine 4 Mg Tablet) 12 mg PO TID [facility] Last Admin: 03/31/21 20:19 Dose: 12 mg Documented by: Trazodone HCl (Trazodone Hcl 50 Mg Tablet) 50 mg PO BEDTIME PRN PRN Reason: Insomnia Allergies Allergies Allergy/AdvReac Type Severity Reaction Status Date / Time tree nut Allergy Anaphylaxis Verified 03/26/21 18:24 Assessment & Plan Assessment & Plan (1) Schizoaffective disorder, depressive type: Status: Acute Code(s): F25.1 - Schizoaffective disorder, depressive type (2) JUSTEN (generalized anxiety disorder): Status: Acute Code(s): F41.1 - Generalized anxiety disorder (3) Autism spectrum disorder: Status: Acute Code(s): F84.0 - Autistic disorder Assessment and Plan: Pt is a 25 y.o. Female who carries a dx of schizoaffective DO, JUSTEN, ASD, and BPD. Pt reports non-adherence on prolixin and latuda x 8 days and since then she has had worsening command AH and suicidal thoughts. Pt currently denies SI/SIB and says she feels safe on the unit. She is help seeking and a strong advocate for her mental health. She currently resides in a [facility] term and has OP services. Plan: Pt would like to re-start an antipsychotic medication. Says she did well on prolixin but it stopped working, wonders about taking a higher dose. Pt is also interested in MENDEZ. Also discussed haldol, as pt has tried this in the past with good effect, however pt is concerned with possible SE of TD, reports hx of oral facial/ eye tics (although unrelated to medication and denies that these bother her). Pt reports she tries not to take ativan but ?if im really down and i just need to calm down and sleep then i?ll take it,? however denies that 0.5 mg dose helps. Will increase ativan to 1 mg BID PRN, as she does not have abuse history.? 03/29/21: Pt seen at 12pm, she had just awoken for the day. She is alert, oriented, denies current symptoms but presents a history of symptoms which she wants to treat as she had achieved efficacy in the past. Denies SI, HI, plan or intent. Denies current perceptual alterations, denies current sx of paranoia, although does report some anxiety about this being her first admission. Review of medications. Pt would like to retrial Trilafon or Prolixin-asks for Trilafon trial. Will consider MENDEZ but asks that we titrate Trilafon first. Plan: Trilafon 4 mg tid and 4 mg daily prn If tolerated will titrate on 03/30. 03/30/21 Increase Trilafon to 8 mg tid. 03/31/21 Increase Trilafon to 12 mg tid I spent 25 minutes with the patient and/or on the patient floor today, greater than?50% of which was spent counseling/coordinating care. Patient educated on: medication risk/benefits and therapeutic strategies Informed Consent: understands and further education needed Reason for contiued inpatient stay Substantial Risk for: harm to self, inability to function and rapid decompensation
[2021-04-01 08:50] LABS: COVID-19 Test Negative (Negative); IDNOW Serial# 9DD0AD1C
[2021-04-01] MEDS: metFORMIN HCl ER 500 MG TAB.ER.24H PO (09:20)
[2021-04-01] MEDS: OXcarbazepine 300 MG TABLET 600 MG PO ×2 (09:20→20:05)
[2021-04-01] MEDS: Loratadine 10 MG TABLET PO (09:21)
[2021-04-01] MEDS: Perphenazine 4 MG TABLET 12 MG PO ×2 (09:21→20:05)
[2021-04-01] MEDS: Gabapentin 100 MG CAPSULE 200 MG PO ×2 (09:21→20:05)
--- NOTE | 2021-04-01 17:10 | P.PNPSI_ITS ---
Subjective Subjective Date of Service: 04/01/21 Reason For Visit: PTSD; Schizoaffective disorder Subjective Notes: Conditional Voluntary Interim History: Reports an increase in sedation from recent perphenazine increase and standing Melatonin dosing. Discussed changes Medication Compliance: Yes Side effects from medications: Yes (sedation) Attending Groups: Intermittent Review of Systems Acute medical concerns: No Medical Review of Systems: unchanged Review of Systems Reports behavioral changes Psychiatric: Reports anxiety, Reports behavioral changes, Reports difficulty concentrating, Reports auditory hallucinations (denies), Reports irritability, Reports paranoia (at times), Reports homicidal ideation (denies) and Reports suicidal ideation (denies) Mental Status Exam Mental Status Exam Patient Appearance: Fatigued Patient Orientation: Person, Place, Time and Situation Level of Consciousness: Alert Patient Behavior: Appropriate, Talkative, Cooperative, Anxious, Fatigued and Good Eye Contact Mood Description: Withdrawn and Constricted Affect Description: Constricted Patient Cognition Impaired: No Ability to Follow Directions: Good Speech Pattern: Spontaneous Speech Memory Description: Episodic Impaired Hallucinations: None (denies) Delusions: Paranoid Ideation (at times she reports) Thought Process: Distracted Thought Content: positive for Perseveration, positive for Tangential (mild), positive for Suicidal Ideation (denies) and positive for Homicidal Ideation (denies) Depressive Symptoms: Increased Anxiety, Diff. Making Decisions, Increased Irritability, Difficulty Sleeping, Sleeping More Than Usual, Increased Fatigue and Loss of Energy Judgement: Fair Diagnostics Vital Signs (24Hr): Vital Signs - 24 hr 03/31/21 18:00 Temperature 98.8 F Pulse Rate 100 Blood Pressure 125/58 L BMI result Body Mass Index 51.2 Labs Results: 03/26/21 19:37 03/26/21 19:37 Labs: Laboratory Results - last 48 hr 03/30/21 04/01/21 20:01 08:10 COVID-19 ([facility]) Negative Negative COVID-19 Clin Com See Note See Note Medications Medications Current Medications Al Hydroxide/Mg Hydroxide (Magnesium Hydrox/Alum Hydrox 30 Ml Oral.Susp) 30 ml PO Q6H PRN PRN Reason: Heartburn/Nausea Albuterol Sulfate (Albuterol Sulfate 90 Mcg 8 Gm Inhaler) 2 puff INHALE RQ4H PRN PRN Reason: Shortness Of Breath Fluoxetine HCl (Fluoxetine Hcl 20 Mg Capsule) 60 mg PO DAILY [facility] Last Admin: 03/29/21 09:35 Dose: 60 mg Documented by: Fluticasone/Vilanterol (Fluticasone/Vilanterol 100/25 Blst.W.Dev) 1 puff INHALE DAILY [facility] Last Admin: 04/01/21 09:21 Dose: Not Given Documented by: Gabapentin (Gabapentin 100 Mg Capsule) 200 mg PO TID [facility] Last Admin: 04/01/21 14:47 Dose: Not Given Documented by: Hydroxyzine HCl (Hydroxyzine Hcl 50 Mg Tablet) 50 mg PO TID PRN PRN Reason: anxiety Hydroxyzine HCl (Hydroxyzine Hcl 25 Mg Tablet) 25 mg PO BEDTIME PRN PRN Reason: Anxiety Last Admin: 03/28/21 21:14 Dose: 25 mg Documented by: Loratadine (Loratadine 10 Mg Tablet) 10 mg PO DAILY [facility] Last Admin: 04/01/21 09:21 Dose: 10 mg Documented by: Lorazepam (Lorazepam 1 Mg Tablet) 1 mg PO BID PRN PRN Reason: Anxiety Last Admin: 03/31/21 16:13 Dose: 1 mg Documented by: Magnesium Hydroxide (Milk Of Magnesia 30 Ml Oral.Susp) 30 ml PO DAILY PRN PRN Reason: Constipation Melatonin (Melatonin 3 Mg Tablet) 3 mg PO BEDTIME [facility] Last Admin: 03/31/21 20:18 Dose: 3 mg Documented by: Metformin HCl (Metformin Hcl Er 500 Mg Tab.Er.24h) 500 mg PO DAILY [facility] Last Admin: 04/01/21 09:20 Dose: 500 mg Documented by: Naproxen (Naproxen 500 Mg Tablet) 500 mg PO BID PRN PRN Reason: mild pain Oxcarbazepine (Oxcarbazepine 300 Mg Tablet) 600 mg PO BID [facility] Last Admin: 04/01/21 09:20 Dose: 600 mg Documented by: Perphenazine (Perphenazine 4 Mg Tablet) 4 mg PO DAILY PRN PRN Reason: voices Last Admin: 03/29/21 18:13 Dose: 4 mg Documented by: Perphenazine (Perphenazine 4 Mg Tablet) 12 mg PO TID [facility] Last Admin: 04/01/21 14:43 Dose: Not Given Documented by: Trazodone HCl (Trazodone Hcl 50 Mg Tablet) 50 mg PO BEDTIME PRN PRN Reason: Insomnia Allergies Allergies Allergy/AdvReac Type Severity Reaction Status Date / Time tree nut Allergy Anaphylaxis Verified 03/26/21 18:24 Assessment & Plan Assessment & Plan (1) Schizoaffective disorder, depressive type: Status: Acute Code(s): F25.1 - Schizoaffective disorder, depressive type (2) JUSTEN (generalized anxiety disorder): Status: Acute Code(s): F41.1 - Generalized anxiety disorder (3) Autism spectrum disorder: Status: Acute Code(s): F84.0 - Autistic disorder Assessment and Plan: Pt is a 25 y.o. Female who carries a dx of schizoaffective DO, JUSTEN, ASD, and BPD. Pt reports non-adherence on prolixin and latuda x 8 days and since then she has had worsening command AH and suicidal thoughts. Pt currently denies SI/SIB and says she feels safe on the unit. She is help seeking and a strong advocate for her mental health. She currently resides in a [facility] assisted and has OP services. Plan: Pt would like to re-start an antipsychotic medication. Says she did well on prolixin but it stopped working, wonders about taking a higher dose. Pt is also interested in MENDEZ. Also discussed haldol, as pt has tried this in the past with good effect, however pt is concerned with possible SE of TD, reports hx of oral facial/ eye tics (although unrelated to medication and denies that these bother her). Pt reports she tries not to take ativan but ?if im really down and i just need to calm down and sleep then i?ll take it,? however denies that 0.5 mg dose helps. Will increase ativan to 1 mg BID PRN, as she does not have abuse history.? 03/29/21: Pt seen at 12pm, she had just awoken for the day. She is alert, tree ented, denies current symptoms but presents a history of symptoms which she wants to treat as she had achieved efficacy in the past. Denies SI, HI, plan or intent. Denies current perceptual alterations, denies current sx of paranoia, although does report some anxiety about this being her first admission. Review of medications. Pt would like to retrial Trilafon or Prolixin-asks for Trilafon trial. Will consider MENDEZ but asks that we titrate Trilafon first. Plan: Trilafon 4 mg tid and 4 mg daily prn If tolerated will titrate on 03/30. 03/30/21 Increase Trilafon to 8 mg tid. 03/31/21 Increase Trilafon to 12 mg tid 04/01/21 Change Melatonin to prn Decrease Trilafon to 12 mg HS and 8 mg bid prn I spent 20 minutes with the patient and/or on the patient floor today, greater than?50% of which was spent counseling/coordinating care. Patient educated on: medication risk/benefits Informed Consent: understands Reason for contiued inpatient stay Substantial Risk for: inability to function and rapid decompensation
[2021-04-01 19:26] VITALS: BP 159/74; PULSE 107; RESP 18; TEMP 36.1; O2SAT 98
[2021-04-01] MEDS: Melatonin 3 MG TABLET PO (20:05)
[2021-04-02 06:00] VITALS: BP 99/52; PULSE 86; RESP 18; TEMP 36.6; O2SAT 97
[2021-04-02] MEDS: OXcarbazepine 300 MG TABLET 600 MG PO ×2 (08:46→20:29)
[2021-04-02] MEDS: metFORMIN HCl ER 500 MG TAB.ER.24H PO (08:46)
[2021-04-02] MEDS: Gabapentin 100 MG CAPSULE 200 MG PO ×3 (08:46→20:28)
[2021-04-02] MEDS: Loratadine 10 MG TABLET PO (08:46)
[2021-04-02] MEDS: NaPROXEN 500 MG TABLET PO (12:00)
[2021-04-02] MEDS: Perphenazine 8 MG TABLET PO ×2 (14:43→20:27)
[2021-04-02] MEDS: hydrOXYzine HCL 50 MG TABLET PO (14:50)
[2021-04-02 18:00] VITALS: BP 119/76; PULSE 124; RESP 16; TEMP 35.7; O2SAT 95
--- NOTE | 2021-04-02 18:05 | HO.PSYCHPN ---
Subjective Subjective Date of Service: 04/02/21 Reason For Visit: PTSD; Schizoaffective disorder Interim History: Pt reports Trilafon at 12 mg HS continues to be too strong. Discussed return to 8 mg tid and 8 mg daily prn which she agreed to. Medication Compliance: Yes Side effects from medications: Yes (feeling tired as we have been working with med timing) Attending Groups: Intermittent Review of Systems Acute medical concerns: No Medical Review of Systems: unchanged Review of Systems Reports behavioral changes Psychiatric: Reports anxiety, Reports behavioral changes, Reports difficulty concentrating, Reports auditory hallucinations (denies), Reports irritability, Reports paranoia (at times), Reports homicidal ideation (denies) and Reports suicidal ideation (denies) Mental Status Exam Mental Status Exam Patient Appearance: Fatigued Patient Orientation: Person, Place, Time and Situation Level of Consciousness: Alert Patient Behavior: Appropriate, Talkative, Cooperative, Anxious, Fatigued and Good Eye Contact Mood Description: Withdrawn and Constricted Affect Description: Constricted Patient Cognition Impaired: No Ability to Follow Directions: Good Speech Pattern: Spontaneous Speech Memory Description: Episodic Impaired Hallucinations: None (denies) Delusions: Paranoid Ideation (at times she reports) Thought Process: Distracted Thought Content: positive for Perseveration, positive for Tangential (mild), positive for Suicidal Ideation (denies) and positive for Homicidal Ideation (denies) Depressive Symptoms: Increased Anxiety, Diff. Making Decisions, Increased Irritability, Difficulty Sleeping, Sleeping More Than Usual, Increased Fatigue and Loss of Energy Judgement: Fair Diagnostics Vital Signs (24Hr): Vital Signs - 24 hr 04/01/21 19:26 04/02/21 06:00 Temperature 97 F 97.8 F Pulse Rate 107 H 86 Respiratory Rate 18 18 Blood Pressure 159/74 H 99/52 L Pulse Oximetry 98 97 BMI result Body Mass Index 51.2 Labs Results: 03/26/21 19:37 03/26/21 19:37 Labs: Laboratory Results - last 48 hr 04/01/21 08:10 COVID-19 ([facility]) Negative COVID-19 Clin Com See Note Medications Medications Current Medications Al Hydroxide/Mg Hydroxide (Magnesium Hydrox/Alum Hydrox 30 Ml Oral.Susp) 30 ml PO Q6H PRN PRN Reason: Heartburn/Nausea Albuterol Sulfate (Albuterol Sulfate 90 Mcg 8 Gm Inhaler) 2 puff INHALE RQ4H PRN PRN Reason: Shortness Of Breath Fluoxetine HCl (Fluoxetine Hcl 20 Mg Capsule) 60 mg PO DAILY [facility] Last Admin: 03/29/21 09:35 Dose: 60 mg Documented by: Fluticasone/Vilanterol (Fluticasone/Vilanterol 100/25 Blst.W.Dev) 1 puff INHALE DAILY [facility] Last Admin: 04/02/21 08:48 Dose: Not Given Documented by: Gabapentin (Gabapentin 100 Mg Capsule) 200 mg PO TID [facility] Last Admin: 04/02/21 14:43 Dose: 200 mg Documented by: Hydroxyzine HCl (Hydroxyzine Hcl 50 Mg Tablet) 50 mg PO TID PRN PRN Reason: anxiety Last Admin: 04/02/21 14:50 Dose: 50 mg Documented by: Hydroxyzine HCl (Hydroxyzine Hcl 25 Mg Tablet) 25 mg PO BEDTIME PRN PRN Reason: Anxiety Last Admin: 03/28/21 21:14 Dose: 25 mg Documented by: Loratadine (Loratadine 10 Mg Tablet) 10 mg PO DAILY [facility] Last Admin: 04/02/21 08:46 Dose: 10 mg Documented by: Lorazepam (Lorazepam 1 Mg Tablet) 1 mg PO BID PRN PRN Reason: Anxiety Last Admin: 03/31/21 16:13 Dose: 1 mg Documented by: Magnesium Hydroxide (Milk Of Magnesia 30 Ml Oral.Susp) 30 ml PO DAILY PRN PRN Reason: Constipation Melatonin (Melatonin 3 Mg Tablet) 3 mg PO BEDTIME PRN PRN Reason: insomnia Last Admin: 04/01/21 20:05 Dose: 3 mg Documented by: Metformin HCl (Metformin Hcl Er 500 Mg Tab.Er.24h) 500 mg PO DAILY [facility] Last Admin: 04/02/21 08:46 Dose: 500 mg Documented by: Naproxen (Naproxen 500 Mg Tablet) 500 mg PO BID PRN PRN Reason: mild pain Last Admin: 04/02/21 12:00 Dose: 500 mg Documented by: Oxcarbazepine (Oxcarbazepine 300 Mg Tablet) 600 mg PO BID [facility] Last Admin: 04/02/21 08:46 Dose: 600 mg Documented by: Perphenazine (Perphenazine 8 Mg Tablet) 8 mg PO TID [facility] Last Admin: 04/02/21 14:43 Dose: 8 mg Documented by: Perphenazine (Perphenazine 8 Mg Tablet) 8 mg PO DAILY PRN PRN Reason: voices Trazodone HCl (Trazodone Hcl 50 Mg Tablet) 50 mg PO BEDTIME PRN PRN Reason: Insomnia Allergies Allergies Allergy/AdvReac Type Severity Reaction Status Date / Time tree nut Allergy Anaphylaxis Verified 03/26/21 18:24 Assessment & Plan Assessment & Plan (1) Schizoaffective disorder, depressive type: Status: Acute Code(s): F25.1 - Schizoaffective disorder, depressive type (2) JUSTEN (generalized anxiety disorder): Status: Acute Code(s): F41.1 - Generalized anxiety disorder (3) Autism spectrum disorder: Status: Acute Code(s): F84.0 - Autistic disorder Assessment and Plan: Pt is a 25 y.o. Female who carries a dx of schizoaffective DO, JUSTEN, ASD, and BPD. Pt reports non-adherence on prolixin and latuda x 8 days and since then she has had worsening command AH and suicidal thoughts. Pt currently denies SI/SIB and says she feels safe on the unit. She is help seeking and a strong advocate for her mental health. She currently resides in a [facility] shelter and has OP services. Plan: Pt would like to re-start an antipsychotic medication. Says she did well on prolixin but it stopped working, wonders about taking a higher dose. Pt is also interested in MENDEZ. Also discussed haldol, as pt has tried this in the past with good effect, however pt is concerned with possible SE of TD, reports hx of oral facial/ eye tics (although unrelated to medication and denies that these bother her). Pt reports she tries not to take ativan but ?if im really down and i just need to calm down and sleep then i?ll take it,? however denies that 0.5 mg dose helps. Will increase ativan to 1 mg BID PRN, as she does not have abuse history.? 03/29/21: Pt seen at 12pm, she had just awoken for the day. She is alert, oriented, denies current symptoms but presents a history of symptoms which she wants to treat as she had achieved efficacy in the past. Denies SI, HI, plan or intent. Denies current perceptual alterations, denies current sx of paranoia, although does report some anxiety about this being her first admission. Review of medications. Pt would like to retrial Trilafon or Prolixin-asks for Trilafon trial. Will consider MENDEZ but asks that we titrate Trilafon first. Plan: Trilafon 4 mg tid and 4 mg daily prn If tolerated will titrate on 03/30. 03/30/21 Increase Trilafon to 8 mg tid. 03/31/21 Increase Trilafon to 12 mg tid 04/01/21 Change Melatonin to prn Decrease Trilafon to 12 mg HS and 8 mg bid prn 04/02/21 Change Trilafon to 8 mg tid and 8 mg daily prn I spent minutes with the patient and/or on the patient floor today, greater than?50% of which was spent counseling/coordinating care. Patient educated on: medication risk/benefits Informed Consent: further education needed Reason for contiued inpatient stay Substantial Risk for: harm to self, harm to others, inability to function and rapid decompensation
[2021-04-02] MEDS: Melatonin 3 MG TABLET PO (20:28)
[2021-04-03 06:00] VITALS: BP 106/51; PULSE 72; RESP 16; TEMP 36.2; O2SAT 98
[2021-04-03 07:56] LABS: Estimated Glomerular Filt Rate > 60
[2021-04-03] MEDS: Gabapentin 100 MG CAPSULE 200 MG PO ×3 (08:30→20:20)
[2021-04-03] MEDS: Perphenazine 8 MG TABLET PO ×3 (08:30→20:20)
[2021-04-03] MEDS: OXcarbazepine 300 MG TABLET 600 MG PO ×2 (08:30→20:20)
[2021-04-03] MEDS: Loratadine 10 MG TABLET PO (08:30)
[2021-04-03] MEDS: metFORMIN HCl ER 500 MG TAB.ER.24H PO (08:30)
[2021-04-03] MEDS: LORazepam 1 MG TABLET PO ×2 (14:32→20:20)
--- NOTE | 2021-04-03 15:42 | P.PNPSI_ITS ---
Subjective Subjective Date of Service: 04/03/21 Reason For Visit: PTSD; Schizoaffective disorder Subjective Notes: Conditional Voluntary Interim History: Pt reports Trilafon 8 mg works well. Asks to continue this dosage at this time. Resting in bed and involved in milieu-doing laundry and socializing with her peer group. Medication Compliance: Yes Side effects from medications: No Attending Groups: Yes Review of Systems Acute medical concerns: No Medical Review of Systems: unchanged Review of Systems Reports behavioral changes Psychiatric: Reports anxiety, Reports behavioral changes, Reports difficulty concentrating, Reports auditory hallucinations (denies), Reports irritability, Reports paranoia (at times), Reports homicidal ideation (denies) and Reports suicidal ideation (denies) Mental Status Exam Mental Status Exam Patient Appearance: Fatigued Patient Orientation: Person, Place, Time and Situation Level of Consciousness: Alert Patient Behavior: Appropriate, Talkative, Cooperative, Anxious, Fatigued and Good Eye Contact Mood Description: Withdrawn and Constricted Affect Description: Constricted Patient Cognition Impaired: No Ability to Follow Directions: Good Speech Pattern: Spontaneous Speech Memory Description: Episodic Impaired Hallucinations: None (denies) Delusions: Paranoid Ideation (at times she reports) Thought Process: Distracted Thought Content: positive for Perseveration, positive for Tangential (mild), positive for Suicidal Ideation (denies) and positive for Homicidal Ideation (denies) Depressive Symptoms: Increased Anxiety, Diff. Making Decisions, Increased Irritability, Difficulty Sleeping, Sleeping More Than Usual, Increased Fatigue and Loss of Energy Judgement: Fair Diagnostics Vital Signs (24Hr): Vital Signs - 24 hr 04/02/21 18:00 04/03/21 06:00 Temperature 96.3 F L 97.2 F Pulse Rate 124 H 72 Respiratory Rate 16 16 Blood Pressure 119/76 106/51 L Pulse Oximetry 95 98 BMI result Body Mass Index 51.2 Labs Results: 03/26/21 19:37 04/03/21 07:32 Labs: Laboratory Results - last 48 hr 04/03/21 07:32 Creatinine 0.75 Estim Creat Clear Calc 189.0 Estimated GFR > 60 Medications Medications Current Medications Al Hydroxide/Mg Hydroxide (Magnesium Hydrox/Alum Hydrox 30 Ml Oral.Susp) 30 ml PO Q6H PRN PRN Reason: Heartburn/Nausea Albuterol Sulfate (Albuterol Sulfate 90 Mcg 8 Gm Inhaler) 2 puff INHALE RQ4H PRN PRN Reason: Shortness Of Breath Fluoxetine HCl (Fluoxetine Hcl 20 Mg Capsule) 60 mg PO DAILY [facility] Last Admin: 03/29/21 09:35 Dose: 60 mg Documented by: Fluticasone/Vilanterol (Fluticasone/Vilanterol 100/25 Blst.W.Dev) 1 puff INHALE DAILY [facility] Last Admin: 04/03/21 08:30 Dose: Not Given Documented by: Gabapentin (Gabapentin 100 Mg Capsule) 200 mg PO TID [facility] Last Admin: 04/03/21 14:27 Dose: 200 mg Documented by: Hydroxyzine HCl (Hydroxyzine Hcl 50 Mg Tablet) 50 mg PO TID PRN PRN Reason: anxiety Last Admin: 04/02/21 14:50 Dose: 50 mg Documented by: Hydroxyzine HCl (Hydroxyzine Hcl 25 Mg Tablet) 25 mg PO BEDTIME PRN PRN Reason: Anxiety Last Admin: 03/28/21 21:14 Dose: 25 mg Documented by: Loratadine (Loratadine 10 Mg Tablet) 10 mg PO DAILY [facility] Last Admin: 04/03/21 08:30 Dose: 10 mg Documented by: Lorazepam (Lorazepam 1 Mg Tablet) 1 mg PO BID PRN PRN Reason: Anxiety Last Admin: 04/03/21 14:32 Dose: 1 mg Documented by: Magnesium Hydroxide (Milk Of Magnesia 30 Ml Oral.Susp) 30 ml PO DAILY PRN PRN Reason: Constipation Melatonin (Melatonin 3 Mg Tablet) 3 mg PO BEDTIME PRN PRN Reason: insomnia Last Admin: 04/02/21 20:28 Dose: 3 mg Documented by: Metformin HCl (Metformin Hcl Er 500 Mg Tab.Er.24h) 500 mg PO DAILY [facility] Last Admin: 04/03/21 08:30 Dose: 500 mg Documented by: Naproxen (Naproxen 500 Mg Tablet) 500 mg PO BID PRN PRN Reason: mild pain Last Admin: 04/02/21 12:00 Dose: 500 mg Documented by: Oxcarbazepine (Oxcarbazepine 300 Mg Tablet) 600 mg PO BID [facility] Last Admin: 04/03/21 08:30 Dose: 600 mg Documented by: Perphenazine (Perphenazine 8 Mg Tablet) 8 mg PO TID [facility] Last Admin: 04/03/21 14:27 Dose: 8 mg Documented by: Perphenazine (Perphenazine 8 Mg Tablet) 8 mg PO DAILY PRN PRN Reason: voices Trazodone HCl (Trazodone Hcl 50 Mg Tablet) 50 mg PO BEDTIME PRN PRN Reason: Insomnia Allergies Allergies Allergy/AdvReac Type Severity Reaction Status Date / Time tree nut Allergy Anaphylaxis Verified 03/26/21 18:24 Assessment & Plan Assessment & Plan (1) Schizoaffective disorder, depressive type: Status: Acute Code(s): F25.1 - Schizoaffective disorder, depressive type (2) JUSTEN (generalized anxiety disorder): Status: Acute Code(s): F41.1 - Generalized anxiety disorder (3) Autism spectrum disorder: Status: Acute Code(s): F84.0 - Autistic disorder Assessment and Plan: Pt is a 25 y.o. Female who carries a dx of schizoaffective DO, JUSTEN, ASD, and BPD. Pt reports non-adherence on prolixin and latuda x 8 days and since then she has had worsening command AH and suicidal thoughts. Pt currently denies SI/SIB and says she feels safe on the unit. She is help seeking and a strong advocate for her mental health. She currently resides in a [facility] usp and has OP services. Plan: Pt would like to re-start an antipsychotic medication. Says she did well on prolixin but it stopped working, wonders about taking a higher dose. Pt is also interested in MENDEZ. Also discussed haldol, as pt has tried this in the past with good effect, however pt is concerned with possible SE of TD, reports hx of oral facial/ eye tics (although unrelated to medication and denies that these bother her). Pt reports she tries not to take ativan but ?if im really down and i just need to calm down and sleep then i?ll take it,? however denies that 0.5 mg dose helps. Will increase ativan to 1 mg BID PRN, as she does not have abuse history.? 03/29/21: Pt seen at 12pm, she had just awoken for the day. She is alert, oriented, denies current symptoms but presents a history of symptoms which she wants to treat as she had achieved efficacy in the past. Denies SI, HI, plan or intent. Denies current perceptual alterations, denies current sx of paranoia, although does report some anxiety about this being her first admission. Review of medications. Pt would like to retrial Trilafon or Prolixin-asks for Trilafon trial. Will consider MENDEZ but asks that we titrate Trilafon first. Plan: Trilafon 4 mg tid and 4 mg daily prn If tolerated will titrate on 03/30. 03/30/21 Increase Trilafon to 8 mg tid. 03/31/21 Increase Trilafon to 12 mg tid 04/01/21 Change Melatonin to prn Decrease Trilafon to 12 mg HS and 8 mg bid prn 04/02/21 Change Trilafon to 8 mg tid and 8 mg daily prn 04/03/21 Coverage: Continue current plan of care I spent minutes with the patient and/or on the patient floor today, greater than?50% of which was spent counseling/coordinating care. Patient educated on: medication risk/benefits Informed Consent: understands Reason for contiued inpatient stay Substantial Risk for: harm to self, stable for discharge and rapid decompensation
[2021-04-03] MEDS: Melatonin 3 MG TABLET PO (21:42)
[2021-04-04] MEDS: OXcarbazepine 300 MG TABLET 600 MG PO (08:28)
[2021-04-04] MEDS: Gabapentin 100 MG CAPSULE 200 MG PO ×2 (08:28→14:33)
[2021-04-04] MEDS: metFORMIN HCl ER 500 MG TAB.ER.24H PO (08:28)
[2021-04-04] MEDS: Loratadine 10 MG TABLET PO (08:28)
[2021-04-04] MEDS: Perphenazine 8 MG TABLET PO ×2 (08:33→14:33)
[2021-04-04 10:31] LABS: COVID-19 Test Negative (Negative)
--- NOTE | 2021-05-08 18:41 | P.DS_ITS ---
DS: Providers Provider Date of Service: 04/04/21 Date of admission: 03/28/21 12:45 Date of discharge: 04/04/21 Primary care physician: Carrie Love MD Admitting clinician: Katherine Cochran Attending physician on admission: Freddy Richardson Attending physician on discharge: Freddy Richardson Discharging clinician: Jazmine Frazier DS: Diagnosis Discharge Diagnosis (1) Schizoaffective disorder, depressive type: Status: Acute (2) JUSTEN (generalized anxiety disorder): Status: Acute (3) Autism spectrum disorder: Status: Acute DS: Medications Discharge Medications Home Medications: Home Medications Medication Instructions Recorded Confirmed fexofenadine 180 mg tablet 1 tab PO DAILY 03/26/21 03/26/21 fluticasone propionate 115 1 puff INHALATION BID 03/26/21 03/27/21 mcg-salmeterol 21 mcg/actuation HFA inhaler (Advair HFA) hydroxyzine pamoate 50 mg capsule 1 cap PO TID PRN 03/26/21 03/27/21 lorazepam 0.5 mg tablet 1 tab PO BID PRN 03/26/21 03/27/21 melatonin 3 mg tablet 3 mg PO BEDTIME PRN 03/26/21 03/27/21 metformin 500 mg tablet,extended 1 tab PO DAILY 03/26/21 03/26/21 release 24 hr naproxen 500 mg tablet 1 tab PO BID PRN 03/26/21 03/27/21 albuterol sulfate 90 mcg/actuation 2 puff INHALATION Q4-6H PRN 03/27/21 03/27/21 aerosol inhaler etonogestrel 68 mg subdermal See Rx Instructions .ROUTE .COMPLEX 03/27/21 03/27/21 implant (Nexplanon) Previous Rx's Medication Instructions Recorded fluoxetine 20 mg capsule 3 cap PO QAM #90 cap 04/04/21 gabapentin 100 mg capsule 200 mg PO TID #180 cap 04/04/21 oxcarbazepine 600 mg tablet 1 tab PO BID #60 tab 04/04/21 perphenazine 8 mg tablet 8 mg PO DAILY PRN #30 tab 04/04/21 perphenazine 8 mg tablet 8 mg PO TID #90 tab 04/04/21 Mental Status Exam Mental Status Exam Patient Appearance: Fatigued Patient Orientation: Person, Place, Time and Situation Level of Consciousness: Alert Patient Behavior: Appropriate, Talkative, Cooperative, Anxious, Fatigued and Good Eye Contact Mood Description: Withdrawn and Constricted Affect Description: Constricted Patient Cognition Impaired: No Ability to Follow Directions: Good Speech Pattern: Spontaneous Speech Memory Description: Episodic Impaired Hallucinations: None (denies) Delusions: Paranoid Ideation (at times she reports) Thought Process: Distracted Thought Content: positive for Perseveration, positive for Tangential (mild), p ositive for Suicidal Ideation (denies) and positive for Homicidal Ideation (denies) Depressive Symptoms: Increased Anxiety, Diff. Making Decisions, Increased Irritability, Difficulty Sleeping, Sleeping More Than Usual, Increased Fatigue and Loss of Energy Judgement: Fair Data Data Completed and Pending Completed studies during hospitalization [Text1]: 03/26/21 19:17 Urine clean catch - Clean Catch Midstream Urine Culture - Final DS: Summary Hospital Course Hospital Course: Admission to adult psychiatry to address symptoms of schizoaffective disorder, depressed, generalized anxiety disorder and autism. Care plan, medication regime and out patient plan of care prior to admission were reviewed. Education was provided regarding management of symptoms, medications and side effects. Nursing and social service worked with Gwen on collateral contacts, care planning, education regarding management of symptoms, medications and discharge planning. Perphenazine 8 mg tid and daily prn were initiated and titrated. Time spent discussing smoking cessation with patient: 3 to 10 minutes Status at Discharge Functional status at discharge: independent ambulation Overall status at discharge: patient is progressing back to baseline Time Spent with Patient Time attestation: Total time spent providing and/or coordinating discharge services: 35 Time spent: Greater than 30 minutes Discharge Plan Discharge Patient Disposition: Home, Self-Care Discharge Diagnosis: Schizoaffective Disorder, Depressed Generalized Anxiety Disorder Autism Referrals: Thomas Bragg MD [Other] - 04/27/21 9:00 am (You next psychiatry appointment is scheduled for 04/27/20 at 9am. ) Nelly ARNOLD [Other] - 04/04/21 ([facility] case management to resume upon discharge.) Blanquita Rosenbaum [Other] - 04/07/21 3:00 pm (Your next appointment with Blanquita is scheduled for 04/07/21 at 3PM.) Carrie Love MD [Primary Care Provider] - 1 Week (OFFICE WILL CALL HER WITH FOLLOW-UP APPOINTMENT.) Discharge Medications: New perphenazine 8 mg Tablet 8 mg PO DAILY PRN (Reason: voices) Qty: 30 RF: 0 perphenazine 8 mg Tablet 8 mg PO TID Qty: 90 RF: 0 Continued hydroxyzine pamoate 50 mg capsule 1 cap PO TID PRN (Reason: Anxiety) RF: 0 melatonin 3 mg tablet 3 mg PO BEDTIME PRN (Reason: Sleep) RF: 0 fexofenadine 180 mg tablet 1 tab PO DAILY RF: 0 lorazepam 0.5 mg tablet 1 tab PO BID PRN (Reason: Anxiety) RF: 0 metformin 500 mg tablet extended release 24 hr 1 tab PO DAILY RF: 0 naproxen 500 mg tablet 1 tab PO BID PRN (Reason: Pain) RF: 0 Advair HFA 115-21 mcg/actuation HFA aerosol inhaler 1 puff inhalation BID RF: 0 albuterol sulfate 90 mcg/actuation Hfa Aerosol Inhaler 2 puff INHALATION Q4-6H PRN (Reason: Shortness Of Breath) RF: 0 Nexplanon 68 mg Implant See Rx Instructions .ROUTE .COMPLEX RF: 0 oxcarbazepine 600 mg tablet 1 tab PO BID Qty: 60 RF: 0 gabapentin 100 mg capsule 200 mg PO TID Qty: 180 RF: 0 fluoxetine 20 mg capsule 3 cap PO QAM Qty: 90 RF: 0 Discontinued fluconazole 150 mg tablet 1 tab PO ONCE RF: 0 Discharge Orders: Discharge Order (Routine); Ordered 04/04/21 Ordered By: Jazmine Frazier Diet: advance to usual diet Activity on Discharge: As tolerated Stand Alone Forms: Patient Portal Discharge page, Community Support Care Plan Goals: Mood stabilization Health Concerns: Schizoaffective Disorder, depressed type Generalized Anxiety Disorder Autism Plan of Treatment: Attend follow up appointments as scheduled Take medications as directed Call Crisis Services if needed [phone] Assessment: Alert, denies SI, plan or intent. No evidence of psychosis. Discharge Date/Time: 04/04/21 14:45
== END 2021-04-04 14:45 | disposition home or self-care (01) | DRG 750 ==
LOC: HO.ED 18:50 → HO.PM5 03-28 13:13
PROVIDERS: Psychiatry & Neurology Psychiatry; Admitting Provider Psychiatry & Neurology Psychiatry; Emergency Provider Emergency Medicine; PCP Internal Medicine; Visit Provider Clinical Nurse Specialist Psychiatric/Mental Health, Adult
DX: F25.1 Schizoaffective disorder, depressive type (principal); R45.851 Suicidal ideations; Z91.128 Patient's intentional underdosing of medication regimen for other reason; F41.1 Generalized anxiety disorder; F84.0 Autistic disorder; F43.10 Post-traumatic stress disorder, unspecified; Z20.822 Contact with and (suspected) exposure to COVID-19; Z79.1 Long term (current) use of non-steroidal anti-inflammatories (NSAID); Z79.84 Long term (current) use of oral hypoglycemic drugs; Z79.899 Other long term (current) drug therapy
CPT/HCPCS: 36415; 80053; 80061; 80307; 81001; 81025; 82077; 82565; 82607; 82746; 83036; 83735; 84439; 84443; 85025; 87086; 87635; 93005; 99285

== ENCOUNTER 2021-06-16 20:53 | Inpatient (IN) | payer OTHER, SELFPAY ==
[2021-06-16 21:32] VITALS: BP 122/71; PULSE 92; RESP 16; TEMP 35.8; O2SAT 97; BMI 47.9
--- NOTE | 2021-06-16 22:43 | PC.ADMIT ---
Pt is a 25y/o female admitted on CV from [facility] for SI/depression. Pt reports feeling depressed and attempted to strangle herself with a dress. Pt is alert and oriented X3, VSS. Covid negative, Tox negative. Pt is calm and cooperative. Speech is clear with low tone and rhythm. Affect is flat. Pt denies auditory hallucinations/ SI but endorsed depression and anxiety saying sitting here makes me anxious. Pt did express attempted suicide in the past. admission orders obtained.
[2021-06-16] MEDS: OXcarbazepine 300 MG TABLET PO ×2 (22:58→23:30)
[2021-06-16] MEDS: Perphenazine 8 MG TABLET PO (23:29)
[2021-06-16] MEDS: Gabapentin 100 MG CAPSULE PO (23:29)
[2021-06-16] MEDS: traZODone HCL 50 MG TABLET PO (23:29)
[2021-06-17 06:00] VITALS: BP 95/47; PULSE 68; RESP 17; TEMP 36.6; O2SAT 97
[2021-06-17] MEDS: metFORMIN HCl ER 500 MG TAB.ER.24H PO (08:41)
[2021-06-17] MEDS: FLUoxetine HCl 20 MG CAPSULE PO (08:41)
[2021-06-17] MEDS: Venlafaxine HCl ER 37.5 MG CAP.ER.24H PO (08:41)
[2021-06-17] MEDS: Perphenazine 8 MG TABLET PO ×2 (08:41→20:07)
[2021-06-17] MEDS: Gabapentin 100 MG CAPSULE PO ×3 (08:41→20:07)
[2021-06-17] MEDS: OXcarbazepine 300 MG TABLET PO ×2 (08:42→20:07)
[2021-06-17 09:00] LABS: Estimated Average Glucose 100 mg/dL; Hemoglobin A1c % 5.1 %
[2021-06-17 09:07] LABS: Cholesterol 197 mg/dL; Creatinine Clr Calc Pharmacy 195.1; Estimated Glomerular Filt Rate > 60; HDL Cholesterol 45 mg/dL; LDL Cholesterol Calculated 139 mg/dl; Magnesium 2.1 mg/dL (1.6-2.6); Triglycerides 69 mg/dL
[2021-06-17 09:30] LABS: Free T4 (Free Thyroxine) 0.66 ng/dL (0.71-1.85); Thyroid Stimulating Hormone 1.11 uIU/mL (0.32-4.0)
[2021-06-17 10:24] LABS: Vitamin B12 833 pg/mL (200-900)
--- NOTE | 2021-06-17 11:59 | HO.PM.IMCN ---
History of Present Illness Data of Consult Service Date: 06/17/21 Primary Care Provider: Carrie Love MD HPI Reason for consult: Routine Medical H&P This is a 25 yo F with a PMH of fibromyalgia, asthma who is admitted to the inpatient psych unit. Medical consult requested for routine medical H&P. Pt see and examined in her room. She reports she was diagnosed with a yeast infection 1-2 weeks ago but did not receive any treamtent. Asking for fluconazole. Reports fibromyalgia / asthma controlled. PMH Fibromyalgia Asthma PSH Denies FH DM and HTN SH denies tobacco, alcohol, illicit substance use Review of Systems Review of Systems: negative except hpi PMFSH Medical History Anxiety Continuous auditory hallucinations Depression Suicidal ideations Surgical History No pertinent past surgical history Social History Household Members: Adopted Family Household Members Other:: Pt lives in assisted residential facility Housing: Assisted Living Facility Do you presently have visiting nurse or other home services: No Alcohol intake: unknown Patient Tobacco Use Status: Never used Tobacco e-Cigarette/Vaping Use: Never Used Second Hand Smoke Exposure: No Use of substances other than those prescribed or required for medical reasons: No Have you been hit, kicked, punched, or otherwise hurt by someone within the past year? If so, by whom?: No Do you feel safe in your current relationship?: No Current Relationship Is there a partner from a previous relationship who is making you feel unsafe now?: No Are you made to feel afraid or neglected: No Spiritual Healthcare Practices: N/A Orthodox Healthcare Practices: N/A Cultural Healthcare Practices: N/A Advance Directives: No Advance Directives Information Provided: No Advance Directives on File: No Do you have thoughts of harming others: None Do you have a plan to hurt others: No Plan Recently lost weight without trying: No Nutrition Risks: No Nutritional Risk Patient : No : No Poor oral hygiene: No service: No Meds Allergies Allergy/AdvReac Type Severity Reaction Status Date / Time tree nut Allergy Anaphylaxis Verified 03/26/21 18:24 Active Medications: Current Medications Acetaminophen (Acetaminophen 325 Mg Tablet) 650 mg PO Q6H PRN PRN Reason: Headache/Pain Mild Scale (1-3) Al Hydroxide/Mg Hydroxide (Magnesium Hydrox/Alum Hydrox 30 Ml Oral.Susp) 30 ml PO Q6H PRN PRN Reason: Heartburn/Nausea Fluoxetine HCl (Fluoxetine Hcl 20 Mg Capsule) 20 mg PO DAILY [facility] Last Admin: 06/17/21 08:41 Dose: 20 mg Documented by: Gabapentin (Gabapentin 100 Mg Capsule) 100 mg PO TID [facility] Last Admin: 06/17/21 08:41 Dose: 100 mg Documented by: Hydroxyzine HCl (Hydroxyzine Hcl 25 Mg Tablet) 25 mg PO Q6H PRN PRN Reason: Anxiety Magnesium Hydroxide (Milk Of Magnesia 30 Ml Oral.Susp) 30 ml PO DAILY PRN PRN Reason: Constipation Metformin HCl (Metformin Hcl Er 500 Mg Tab.Er.24h) 500 mg PO DAILY [facility] Last Admin: 06/17/21 08:41 Dose: 500 mg Documented by: Oxcarbazepine (Oxcarbazepine 300 Mg Tablet) 300 mg PO BID [facility] Last Admin: 06/17/21 08:42 Dose: 300 mg Documented by: Perphenazine (Perphenazine 8 Mg Tablet) 8 mg PO BID [facility] Last Admin: 06/17/21 08:41 Dose: 8 mg Documented by: Trazodone HCl (Trazodone Hcl 50 Mg Tablet) 50 mg PO BEDTIME PRN PRN Reason: Insomnia Last Admin: 06/16/21 23:29 Dose: 50 mg Documented by: Venlafaxine HCl (Venlafaxine Hcl Er 37.5 Mg Cap.Er.24h) 37.5 mg PO DAILY [facility] Last Admin: 06/17/21 08:41 Dose: 37.5 mg Documented by: Home Medications Medication Instructions Recorded Confirmed Last Taken Type fexofenadine 180 mg tablet 1 tab PO DAILY 03/26/21 06/16/21 03/26/21 History fluticasone propionate 115 1 puff INHALATION BID 03/26/21 06/16/21 03/26/21 History mcg-salmeterol 21 mcg/actuation HFA inhaler (Advair HFA) hydroxyzine pamoate 50 mg capsule 1 cap PO TID PRN 03/26/21 06/16/21 Unknown History lorazepam 0.5 mg tablet 1 tab PO BID PRN 03/26/21 06/16/21 Unknown History melatonin 3 mg tablet 3 mg PO BEDTIME PRN 03/26/21 06/16/21 Unknown History metformin 500 mg tablet,extended 1 tab PO DAILY 03/26/21 06/16/21 03/26/21 History release 24 hr naproxen 500 mg tablet 1 tab PO BID PRN 03/26/21 06/16/21 Unknown History albuterol sulfate 90 mcg/actuation 2 puff INHALATION Q4-6H PRN 03/27/21 06/16/21 Unknown History aerosol inhaler etonogestrel 68 mg subdermal See Rx Instructions .ROUTE .COMPLEX 03/27/21 06/16/21 Unknown History implant (Nexplanon) Physical Exam Vital Signs and Narrative: Vital Signs: Last Vital Signs Temp 97.8 F 06/17/21 06:00 Pulse 68 06/17/21 06:00 Resp 17 06/17/21 06:00 BP 95/47 L 06/17/21 06:00 Pulse Ox 97 06/17/21 06:00 BMI result Body Mass Index 47.9 Const: Other: Constitutional - Awake and Alert, No apparent distress Eyes - PERRLA, EOMI Cardiovascular - S1S2, RRR, No edema Respiratory - Normal lung expansion, Normal respiratory effort, No respiratory distress, CTA bilaterally Gastrointestinal - NT / ND; +BS; No rebound or guarding - No CVA tenderness Extremities - no calf tenderness bilaterally, no swelling Musculoskeletal - Normal inspection, normal ROM Skin - Warm/Dry Neurological - Alert & oriented x3, No focal deficit; CN 2-12 in tact bilaterally Psychological - Appropriate affect Results Labs CBC and Chem 7: 06/17/21 07:59 Labs: Laboratory Results - last 24 hr 06/17/21 06/17/21 06/17/21 07:59 07:59 07:59 Estim Creat Clear Calc 195.1 Estimated GFR > 60 Estimat Average Glucose 100 Hemoglobin A1c % 5.1 Magnesium 2.1 Triglycerides 69 Cholesterol 197 LDL Cholesterol, Calc 139 HDL Cholesterol 45 Vitamin B12 833 Folate 9.0 TSH 1.11 Free T4 0.66 L Assessment and Plan (1) Vaginal candidiasis: Status: Acute Plan This is a 25 yo F with a PMH of fibromyalgia, asthma who is admitted to the inpatient psych unit. Medical consult requested for routine medical H&P. Reported yeast infection -- diagnosed as an outpatient fluconazole 150mg x 1 continue her baseline meds for fibromyalgia + asthma. Medically stable. Will sign off at this time.
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
[2021-06-17] MEDS: Fluconazole 150 MG TABLET PO (12:42)
[2021-06-17 18:00] VITALS: BP 120/76; PULSE 84; RESP 16; TEMP 36.5; O2SAT 99
[2021-06-17] MEDS: amantadine HCL 100 MG CAPSULE PO (20:10)
[2021-06-18 06:00] VITALS: BP 118/80; PULSE 72; TEMP 36.5; O2SAT 98
[2021-06-18] MEDS: Gabapentin 100 MG CAPSULE PO ×3 (08:23→21:47)
[2021-06-18] MEDS: amantadine HCL 100 MG CAPSULE PO ×2 (08:23→21:46)
[2021-06-18] MEDS: Perphenazine 8 MG TABLET PO ×2 (08:23→21:47)
[2021-06-18] MEDS: metFORMIN HCl ER 500 MG TAB.ER.24H PO (08:23)
[2021-06-18] MEDS: OXcarbazepine 300 MG TABLET PO ×2 (08:23→21:47)
[2021-06-18] MEDS: Venlafaxine HCl ER 75 MG CAP.ER.24H PO (08:23)
--- NOTE | 2021-06-18 15:22 | P.PNPSI_ITS ---
Subjective Subjective Date of Service: 06/18/21 Reason For Visit: depression,SA by hanging Subjective Notes: Conditional Voluntary Interim History: Gwen reports that she feels sad, but that she is getting the support that she needs. Medication Compliance: Yes Side effects from medications: No Mental Status Exam Mental Status Exam Patient Appearance: Appropriate Patient Orientation: Person, Place, Time and Situation Level of Consciousness: Alert Patient Behavior: Appropriate, Talkative, Cooperative and Good Eye Contact Mood Description: Depressed and Anxious Affect Description: Flat Patient Cognition Impaired: No Ability to Follow Directions: Good Speech Pattern: Spontaneous Speech Memory Description: Intact Hallucinations: Auditory Delusions: Paranoid Ideation and Present Perceptual Disturbances: Depersonalization and Derealization Thought Process: Distracted and Rumination Thought Content: positive for Perseveration and positive for Suicidal Ideation Depressive Symptoms: Increased Anxiety, Diff. Making Decisions, Increased Irritability, Sleeping More Than Usual, Unhappiness, Thoughts of /Suicide, Low Self Esteem and Loss of Energy Judgement: Fair Diagnostics Vital Signs (24Hr): Vital Signs - 24 hr 06/17/21 18:00 06/18/21 06:00 Temperature 97.7 F 97.7 F Pulse Rate 84 72 Respiratory Rate 16 Blood Pressure 120/76 118/80 Pulse Oximetry 99 98 BMI result Body Mass Index 47.9 Labs Results: 06/17/21 07:59 Labs: Laboratory Results - last 48 hr 06/17/21 06/17/21 06/17/21 07:59 07:59 07:59 Creatinine 0.73 Estim Creat Clear Calc 195.1 Estimated GFR > 60 Estimat Average Glucose 100 Hemoglobin A1c % 5.1 Magnesium 2.1 Triglycerides 69 Cholesterol 197 LDL Cholesterol, Calc 139 HDL Cholesterol 45 Vitamin B12 833 Folate 9.0 TSH 1.11 Free T4 0.66 L Medications Medications Current Medications Acetaminophen (Acetaminophen 325 Mg Tablet) 650 mg PO Q6H PRN PRN Reason: Headache/Pain Mild Scale (1-3) Al Hydroxide/Mg Hydroxide (Magnesium Hydrox/Alum Hydrox 30 Ml Oral.Susp) 30 ml PO Q6H PRN PRN Reason: Heartburn/Nausea Amantadine HCl (Amantadine Hcl 100 Mg Capsule) 100 mg PO BID [facility] Last Admin: 06/18/21 08:23 Dose: 100 mg Documented by: Gabapentin (Gabapentin 100 Mg Capsule) 100 mg PO TID [facility] Last Admin: 06/18/21 14:14 Dose: 100 mg Documented by: Hydroxyzine HCl (Hydroxyzine Hcl 25 Mg Tablet) 25 mg PO Q6H PRN PRN Reason: Anxiety Magnesium Hydroxide (Milk Of Magnesia 30 Ml Oral.Susp) 30 ml PO DAILY PRN PRN Reason: Constipation Metformin HCl (Metformin Hcl Er 500 Mg Tab.Er.24h) 500 mg PO DAILY [facility] Last Admin: 06/18/21 08:23 Dose: 500 mg Documented by: Oxcarbazepine (Oxcarbazepine 300 Mg Tablet) 300 mg PO BID [facility] Last Admin: 06/18/21 08:23 Dose: 300 mg Documented by: Perphenazine (Perphenazine 8 Mg Tablet) 8 mg PO BID [facility] Last Admin: 06/18/21 08:23 Dose: 8 mg Documented by: Trazodone HCl (Trazodone Hcl 50 Mg Tablet) 50 mg PO BEDTIME PRN PRN Reason: Insomnia Last Admin: 06/16/21 23:29 Dose: 50 mg Documented by: Venlafaxine HCl (Venlafaxine Hcl Er 75 Mg Cap.Er.24h) 75 mg PO DAILY [facility] Last Admin: 06/18/21 08:23 Dose: 75 mg Documented by: Allergies Allergies Allergy/AdvReac Type Severity Reaction Status Date / Time tree nut Allergy Anaphylaxis Verified 03/26/21 18:24 Assessment & Plan Assessment & Plan (1) Schizoaffective disorder, depressive type: Status: Acute Code(s): F25.1 - Schizoaffective disorder, depressive type (2) JUSTEN (generalized anxiety disorder): Status: Acute Code(s): F41.1 - Generalized anxiety disorder (3) Autism spectrum disorder: Status: Acute Code(s): F84.0 - Autistic disorder Plan 25 yo female, hx of schizoaffective disorder, JUSTEN, Autism spectrum disorder presents with an increase in SI, s/p hanging attempt. Pt reports new therapy, med regime as precipitants. Plan: Discontinue Prozac Increase Venlafaxine to 75 mg a.m. Amantadine 100 mg bid for EPS reported sx. Collateral contacts 06/18/21 - no change to the above I spent minutes with the patient and/or on the patient floor today, greater than?50% of which was spent counseling/coordinating care. Reason for contiued inpatient stay Substantial Risk for: rapid decompensation
[2021-06-18] MEDS: hydrOXYzine HCL 25 MG TABLET PO (16:47)
[2021-06-18 19:20] VITALS: BP 108/67; PULSE 91; TEMP 36.5
[2021-06-18] MEDS: LORazepam 1 MG TABLET PO (21:46)
[2021-06-19 06:00] VITALS: BP 97/57; PULSE 68; TEMP 36.8; O2SAT 98
[2021-06-19] MEDS: amantadine HCL 100 MG CAPSULE PO ×2 (09:05→20:23)
[2021-06-19] MEDS: Perphenazine 8 MG TABLET PO ×2 (09:05→20:23)
[2021-06-19] MEDS: metFORMIN HCl ER 500 MG TAB.ER.24H PO (09:05)
[2021-06-19] MEDS: Venlafaxine HCl ER 75 MG CAP.ER.24H PO (09:05)
[2021-06-19] MEDS: OXcarbazepine 300 MG TABLET PO (09:05)
[2021-06-19] MEDS: Gabapentin 100 MG CAPSULE PO (09:05)
--- NOTE | 2021-06-19 15:04 | P.PNPSI_ITS ---
Subjective Subjective Date of Service: 06/19/21 Reason For Visit: depression,SA by hanging Interim History: Gwen reports that she usually takes a higher dose of gabapentin and trileptal. Changes were made. Medication Compliance: Yes Side effects from medications: No Mental Status Exam Mental Status Exam Patient Appearance: Appropriate Patient Orientation: Person, Place, Time and Situation Level of Consciousness: Alert Patient Behavior: Appropriate, Talkative, Cooperative and Good Eye Contact Mood Description: Depressed and Anxious Affect Description: Flat Patient Cognition Impaired: No Ability to Follow Directions: Good Speech Pattern: Spontaneous Speech Memory Description: Intact Hallucinations: Auditory Delusions: Paranoid Ideation and Present Perceptual Disturbances: Depersonalization and Derealization Thought Process: Distracted and Rumination Thought Content: positive for Perseveration and positive for Suicidal Ideation Depressive Symptoms: Increased Anxiety, Diff. Making Decisions, Increased Irritability, Sleeping More Than Usual, Unhappiness, Thoughts of /Suicide, Low Self Esteem and Loss of Energy Judgement: Fair Diagnostics Vital Signs (24Hr): Vital Signs - 24 hr 06/18/21 19:20 06/19/21 06:00 Temperature 97.7 F 98.2 F Pulse Rate 91 68 Blood Pressure 108/67 97/57 L Pulse Oximetry 98 BMI result Body Mass Index 47.9 Labs Results: 06/17/21 07:59 Medications Medications Current Medications Acetaminophen (Acetaminophen 325 Mg Tablet) 650 mg PO Q6H PRN PRN Reason: Headache/Pain Mild Scale (1-3) Al Hydroxide/Mg Hydroxide (Magnesium Hydrox/Alum Hydrox 30 Ml Oral.Susp) 30 ml PO Q6H PRN PRN Reason: Heartburn/Nausea Amantadine HCl (Amantadine Hcl 100 Mg Capsule) 100 mg PO BID REPLACED BY [facility] Last Admin: 06/19/21 09:05 Dose: 100 mg Documented by: Gabapentin (Gabapentin 100 Mg Capsule) 200 mg PO TID REPLACED BY [facility] Hydroxyzine HCl (Hydroxyzine Hcl 25 Mg Tablet) 25 mg PO Q6H PRN PRN Reason: Anxiety Last Admin: 06/18/21 16:47 Dose: 25 mg Documented by: Magnesium Hydroxide (Milk Of Magnesia 30 Ml Oral.Susp) 30 ml PO DAILY PRN PRN Reason: Constipation Metformin HCl (Metformin Hcl Er 500 Mg Tab.Er.24h) 500 mg PO DAILY [facility]PL[facility] BY [facility] Last Admin: 06/19/21 09:05 Dose: 500 mg Documented by: Oxcarbazepine (Oxcarbazepine 300 Mg Tablet) 600 mg PO BID REPLACED BY [facility] Perphenazine (Perphenazine 8 Mg Tablet) 8 mg PO BID [facility]PLAC[facility] BY [facility] Last Admin: 06/19/21 09:05 Dose: 8 mg Documented by: Trazodone HCl (Trazodone Hcl 50 Mg Tablet) 50 mg PO BEDTIME PRN PRN Reason: Insomnia Last Admin: 06/16/21 23:29 Dose: 50 mg Documented by: Venlafaxine HCl (Venlafaxine Hcl Er 75 Mg Cap.Er.24h) 75 mg PO DAILY [facility]PL[facility] Last Admin: 06/19/21 09:05 Dose: 75 mg Documented by: Allergies Allergies Allergy/AdvReac Type Severity Reaction Status Date / Time tree nut Allergy Anaphylaxis Verified 03/26/21 18:24 Assessment & Plan Assessment & Plan (1) Schizoaffective disorder, depressive type: Status: Acute Code(s): F25.1 - Schizoaffective disorder, depressive type (2) JUSTEN (generalized anxiety disorder): Status: Acute Code(s): F41.1 - Generalized anxiety disorder (3) Autism spectrum disorder: Status: Acute Code(s): F84.0 - Autistic disorder Plan 25 yo female, hx of schizoaffective disorder, JUSTEN, Autism spectrum disorder presents with an increase in SI, s/p hanging attempt. Pt reports new therapy, med regime as precipitants. Plan: Discontinue Prozac Increase Venlafaxine to 75 mg a.m. Amantadine 100 mg bid for EPS reported sx. Collateral contacts 06/18/21 - no change to the above 06/19/21 - no changes I spent minutes with the patient and/or on the patient floor today, greater than?50% of which was spent counseling/coordinating care. Patient educated on: diagnosis and medication risk/benefits Informed Consent: further education needed Reason for contiued inpatient stay Substantial Risk for: rapid decompensation
[2021-06-19] MEDS: Gabapentin 100 MG CAPSULE 200 MG PO ×2 (15:17→20:24)
[2021-06-19 18:00] VITALS: BP 132/62; PULSE 102; RESP 18; TEMP 36.6; O2SAT 98
[2021-06-19] MEDS: OXcarbazepine 300 MG TABLET 600 MG PO (20:24)
[2021-06-20 06:00] VITALS: BP 110/66; PULSE 86; RESP 18; TEMP 36.6; O2SAT 97
[2021-06-20] MEDS: Perphenazine 8 MG TABLET PO ×2 (08:34→21:49)
[2021-06-20] MEDS: Gabapentin 100 MG CAPSULE 200 MG PO ×3 (08:34→21:48)
[2021-06-20] MEDS: amantadine HCL 100 MG CAPSULE PO ×2 (08:34→21:47)
[2021-06-20] MEDS: Venlafaxine HCl ER 75 MG CAP.ER.24H PO (08:34)
[2021-06-20] MEDS: metFORMIN HCl ER 500 MG TAB.ER.24H PO (08:34)
[2021-06-20] MEDS: OXcarbazepine 300 MG TABLET 600 MG PO ×2 (08:34→21:48)
--- NOTE | 2021-06-20 17:12 | HO.PSYCHPN ---
Subjective Subjective Date of Service: 06/20/21 Reason For Visit: depression,SA by hanging Subjective Notes: Conditional Voluntary Healthcare Proxy: No Guardianship: No Medical Problems Affecting Mental Status: No Interim History: Gwen discussed feeling improved, preparing for discharge. Reading The Body in Not an Apology and beginning the workbook. Reports seeing Carissa a vision who has been with her since age 13, ease down the wall last night-found team helpful in helping her ground and use light to improve her feelings of safety. Carissa is the vision who tells her to kill herself and others-identifies 2 male voices and one female voice who is a support. Reports sleep has improved and she is feeling improved with the transition to Venlafaxine. Medication Compliance: Yes Side effects from medications: No Attending Groups: Yes Review of Systems Acute medical concerns: No Review of Systems Psychiatric: Reports anxiety, Reports depression, Reports auditory hallucinations and Reports visual hallucinations Mental Status Exam Mental Status Exam Patient Appearance: Appropriate Patient Orientation: Person, Place, Time and Situation Level of Consciousness: Alert Patient Behavior: Talkative, Cooperative and Good Eye Contact Mood Description: Apprehensive Affect Description: Apprehensive Patient Cognition Impaired: No Ability to Follow Directions: Good Speech Pattern: Spontaneous Speech Memory Description: Intact Hallucinations: Auditory and Visual Perceptual Disturbances: Depersonalization and Derealization Thought Process: Goal Oriented Thought Content: positive for Circumstantial and positive for Suicidal Ideation (denies) Depressive Symptoms: Increased Anxiety and Low Self Esteem Judgement: Good Diagnostics Vital Signs (24Hr): Vital Signs - 24 hr 06/19/21 18:00 06/20/21 06:00 Temperature 98 F 97.8 F Pulse Rate 102 H 86 Respiratory Rate 18 18 Blood Pressure 132/62 110/66 Pulse Oximetry 98 97 BMI result Body Mass Index 47.9 Labs Results: 06/17/21 07:59 Medications Medications Current Medications Acetaminophen (Acetaminophen 325 Mg Tablet) 650 mg PO Q6H PRN PRN Reason: Headache/Pain Mild Scale (1-3) Al Hydroxide/Mg Hydroxide (Magnesium Hydrox/Alum Hydrox 30 Ml Oral.Susp) 30 ml PO Q6H PRN PRN Reason: Heartburn/Nausea Amantadine HCl (Amantadine Hcl 100 Mg Capsule) 100 mg PO BID [facility] Last Admin: 06/20/21 08:34 Dose: 100 mg Documented by: Gabapentin (Gabapentin 100 Mg Capsule) 200 mg PO TID [facility] Last Admin: 06/20/21 14:32 Dose: 200 mg Documented by: Hydroxyzine HCl (Hydroxyzine Hcl 25 Mg Tablet) 25 mg PO Q6H PRN PRN Reason: Anxiety Last Admin: 06/18/21 16:47 Dose: 25 mg Documented by: Magnesium Hydroxide (Milk Of Magnesia 30 Ml Oral.Susp) 30 ml PO DAILY PRN PRN Reason: Constipation Metformin HCl (Metformin Hcl Er 500 Mg Tab.Er.24h) 500 mg PO DAILY [facility] Last Admin: 06/20/21 08:34 Dose: 500 mg Documented by: Oxcarbazepine (Oxcarbazepine 300 Mg Tablet) 600 mg PO BID [facility] Last Admin: 06/20/21 08:34 Dose: 600 mg Documented by: Perphenazine (Perphenazine 8 Mg Tablet) 8 mg PO BID [facility] Last Admin: 06/20/21 08:34 Dose: 8 mg Documented by: Trazodone HCl (Trazodone Hcl 50 Mg Tablet) 50 mg PO BEDTIME PRN PRN Reason: Insomnia Last Admin: 06/16/21 23:29 Dose: 50 mg Documented by: Venlafaxine HCl (Venlafaxine Hcl Er 75 Mg Cap.Er.24h) 75 mg PO DAILY [facility] Last Admin: 06/20/21 08:34 Dose: 75 mg Documented by: Allergies Allergies Allergy/AdvReac Type Severity Reaction Status Date / Time tree nut Allergy Anaphylaxis Verified 03/26/21 18:24 Assessment & Plan Assessment & Plan (1) Schizoaffective disorder, depressive type: Status: Acute Code(s): F25.1 - Schizoaffective disorder, depressive type (2) JUSTEN (generalized anxiety disorder): Status: Acute Code(s): F41.1 - Generalized anxiety disorder (3) Autism spectrum disorder: Status: Acute Code(s): F84.0 - Autistic disorder Plan 25 yo female, hx of schizoaffective disorder, JUSTEN, Autism spectrum disorder presents with an increase in SI, s/p hanging attempt. Pt reports new therapy, med regime as precipitants. Plan: Discontinue Prozac Increase Venlafaxine to 75 mg a.m. Amantadine 100 mg bid for EPS reported sx. Collateral contacts 06/18/21 - no change to the above 06/19/21 - no changes 06/20/21- Increase Venlafaxine to 112.5 mg a.m. Discussion of discharge for 06/22. I spent minutes with the patient and/or on the patient floor today, greater than?50% of which was spent counseling/coordinating care. Patient educated on: medication risk/benefits, therapeutic strategies and other Informed Consent: understands Reason for contiued inpatient stay Substantial Risk for: harm to self, inability to function and rapid decompensation
[2021-06-20] MEDS: Acetaminophen 325 MG TABLET 650 MG PO (18:08)
[2021-06-20 22:10] VITALS: BP 128/73; PULSE 92; TEMP 36.8
[2021-06-21 06:00] VITALS: BP 117/61; PULSE 74; RESP 16; TEMP 36.8; O2SAT 96
[2021-06-21] MEDS: OXcarbazepine 300 MG TABLET 600 MG PO ×2 (08:30→21:06)
[2021-06-21] MEDS: metFORMIN HCl ER 500 MG TAB.ER.24H PO (08:30)
[2021-06-21] MEDS: Perphenazine 8 MG TABLET PO ×2 (08:30→21:06)
[2021-06-21] MEDS: Gabapentin 100 MG CAPSULE 200 MG PO ×3 (08:30→21:06)
[2021-06-21] MEDS: Venlafaxine HCl ER 37.5 MG CAP.ER.24H 112.5 MG PO (08:31)
[2021-06-21] MEDS: amantadine HCL 100 MG CAPSULE PO ×2 (08:31→21:06)
--- NOTE | 2021-06-21 13:24 | P.PNPSI_ITS ---
Subjective Subjective Date of Service: 06/21/21 Reason For Visit: depression,SA by hanging Subjective Notes: Conditional Voluntary Healthcare Proxy: No Guardianship: No Medical Problems Affecting Mental Status: No Interim History: Preparing for discharge with some anxiety. Discussed current treatment plan, future planning, mgt of PMDD, review of medications. Tolerating Venlafaxine at 112.5 mg Medication Compliance: Yes Side effects from medications: No Attending Groups: Yes Review of Systems Acute medical concerns: No Medical Review of Systems: unchanged Review of Systems Psychiatric: Reports no additional psychiatric complaints and Reports anxiety Mental Status Exam Mental Status Exam Patient Appearance: Appropriate Patient Orientation: Person, Place, Time and Situation Level of Consciousness: Alert Patient Behavior: Talkative, Cooperative and Good Eye Contact Mood Description: Apprehensive Affect Description: Apprehensive Patient Cognition Impaired: No Ability to Follow Directions: Good Speech Pattern: Spontaneous Speech Memory Description: Intact Hallucinations: Auditory and Visual Perceptual Disturbances: Depersonalization and Derealization Thought Process: Goal Oriented Thought Content: positive for Circumstantial and positive for Suicidal Ideation (denies) Depressive Symptoms: Increased Anxiety and Low Self Esteem Judgement: Good Diagnostics Vital Signs (24Hr): Vital Signs - 24 hr 06/20/21 22:10 06/21/21 06:00 Temperature 98.3 F 98.3 F Pulse Rate 92 74 Respiratory Rate 16 Blood Pressure 128/73 117/61 Pulse Oximetry 96 BMI result Body Mass Index 47.9 Labs Results: 06/17/21 07:59 Medications Medications Current Medications Acetaminophen (Acetaminophen 325 Mg Tablet) 650 mg PO Q6H PRN PRN Reason: Headache/Pain Mild Scale (1-3) Last Admin: 06/20/21 18:08 Dose: 650 mg Documented by: Al Hydroxide/Mg Hydroxide (Magnesium Hydrox/Alum Hydrox 30 Ml Oral.Susp) 30 ml PO Q6H PRN PRN Reason: Heartburn/Nausea Amantadine HCl (Amantadine Hcl 100 Mg Capsule) 100 mg PO BID [facility] Last Admin: 06/21/21 08:31 Dose: 100 mg Documented by: Gabapentin (Gabapentin 100 Mg Capsule) 200 mg PO TID [facility] Last Admin: 06/21/21 08:30 Dose: 200 mg Documented by: Hydroxyzine HCl (Hydroxyzine Hcl 25 Mg Tablet) 25 mg PO Q6H PRN PRN Reason: Anxiety Last Admin: 06/18/21 16:47 Dose: 25 mg Documented by: Magnesium Hydroxide (Milk Of Magnesia 30 Ml Oral.Susp) 30 ml PO DAILY PRN PRN Reason: Constipation Metformin HCl (Metformin Hcl Er 500 Mg Tab.Er.24h) 500 mg PO DAILY [facility] Last Admin: 06/21/21 08:30 Dose: 500 mg Documented by: Oxcarbazepine (Oxcarbazepine 300 Mg Tablet) 600 mg PO BID [facility] Last Admin: 06/21/21 08:30 Dose: 600 mg Documented by: Perphenazine (Perphenazine 8 Mg Tablet) 8 mg PO BID [facility] Last Admin: 06/21/21 08:30 Dose: 8 mg Documented by: Trazodone HCl (Trazodone Hcl 50 Mg Tablet) 50 mg PO BEDTIME PRN PRN Reason: Insomnia Last Admin: 06/16/21 23:29 Dose: 50 mg Documented by: Venlafaxine HCl (Venlafaxine Hcl Er 37.5 Mg Cap.Er.24h) 112.5 mg PO DAILY [facility] Last Admin: 06/21/21 08:31 Dose: 112.5 mg Documented by: Allergies Allergies Allergy/AdvReac Type Severity Reaction Status Date / Time tree nut Allergy Anaphylaxis Verified 03/26/21 18:24 Assessment & Plan Assessment & Plan (1) Schizoaffective disorder, depressive type: Status: Acute Code(s): F25.1 - Schizoaffective disorder, depressive type (2) JUSTEN (generalized anxiety disorder): Status: Acute Code(s): F41.1 - Generalized anxiety disorder (3) Autism spectrum disorder: Status: Acute Code(s): F84.0 - Autistic disorder Plan 25 yo female, hx of schizoaffective disorder, JUSTEN, Autism spectrum disorder presents with an increase in SI, s/p hanging attempt. Pt reports new therapy, med regime as precipitants. Plan: Discontinue Prozac Increase Venlafaxine to 75 mg a.m. Amantadine 100 mg bid for EPS reported sx. Collateral contacts 06/18/21 - no change to the above 06/19/21 - no changes 06/20/21- Increase Venlafaxine to 112.5 mg a.m. Discussion of discharge for 06/22. 06/21/21- Discharge 06/22/21. I spent minutes with the patient and/or on the patient floor today, greater than?50% of which was spent counseling/coordinating care. Patient educated on: diagnosis, medication risk/benefits and therapeutic strategies Informed Consent: understands and further education needed Reason for contiued inpatient stay Substantial Risk for: harm to self, inability to function and rapid decompensation
[2021-06-21 18:00] VITALS: BP 156/87; PULSE 84; RESP 18; TEMP 36.6; O2SAT 93
[2021-06-22 06:00] VITALS: BP 100/55; PULSE 78; RESP 16; TEMP 35.8; O2SAT 96
[2021-06-22] MEDS: OXcarbazepine 300 MG TABLET 600 MG PO (08:29)
[2021-06-22] MEDS: Gabapentin 100 MG CAPSULE 200 MG PO ×2 (08:29→14:34)
[2021-06-22] MEDS: amantadine HCL 100 MG CAPSULE PO (08:30)
[2021-06-22] MEDS: metFORMIN HCl ER 500 MG TAB.ER.24H PO (08:30)
[2021-06-22] MEDS: Perphenazine 8 MG TABLET PO (08:30)
[2021-06-22] MEDS: Venlafaxine HCl ER 37.5 MG CAP.ER.24H 112.5 MG PO (08:30)
--- NOTE | 2021-06-22 09:03 | P.DS_ITS ---
DS: Providers Provider Date of Service: 06/22/21 Date of admission: 06/16/21 20:53 Date of discharge: 06/22/21 Primary care physician: Carrie Love MD Admitting clinician: Jazmine Frazier Attending physician on admission: Freddy Richardson Consults: 06/16/21 21:31 Consult to Hospitalist Routine Consulting Provider: Hospitalist Reason For Exam: [place] [facility] [place] physician on discharge: Freddy Richardson Discharging clinician: Jazmine Frazier DS: Diagnosis Discharge Diagnosis (1) Schizoaffective disorder, depressive type: Status: Acute (2) JUSTEN (generalized anxiety disorder): Status: Acute (3) Autism spectrum disorder: Status: Acute DS: Medications Discharge Medications Home Medications: Home Medications Medication Instructions Recorded Confirmed fexofenadine 180 mg tablet 1 tab PO DAILY 03/26/21 06/16/21 fluticasone propionate 115 1 puff INHALATION BID 03/26/21 06/16/21 mcg-salmeterol 21 mcg/actuation HFA inhaler (Advair HFA) hydroxyzine pamoate 50 mg capsule 1 cap PO TID PRN 03/26/21 06/16/21 lorazepam 0.5 mg tablet 1 tab PO BID PRN 03/26/21 06/16/21 melatonin 3 mg tablet 3 mg PO BEDTIME PRN 03/26/21 06/16/21 metformin 500 mg tablet,extended 1 tab PO DAILY 03/26/21 06/16/21 release 24 hr naproxen 500 mg tablet 1 tab PO BID PRN 03/26/21 06/16/21 albuterol sulfate 90 mcg/actuation 2 puff INHALATION Q4-6H PRN 03/27/21 06/16/21 aerosol inhaler etonogestrel 68 mg subdermal See Rx Instructions .ROUTE .COMPLEX 03/27/21 06/16/21 implant (Nexplanon) Previous Rx's Medication Instructions Recorded gabapentin 100 mg capsule 200 mg PO TID #180 cap 04/04/21 oxcarbazepine 600 mg tablet 1 tab PO BID #60 tab 04/04/21 perphenazine 8 mg tablet 8 mg PO DAILY PRN #30 tab 04/04/21 perphenazine 8 mg tablet 8 mg PO TID #90 tab 04/04/21 amantadine HCl 100 mg capsule 100 mg PO BID #60 cap 06/22/21 venlafaxine 37.5 mg 37.5 mg PO DAILY #30 cap 06/22/21 capsule,extended release 24 hr venlafaxine 75 mg capsule,extended 75 mg PO DAILY #30 cap 06/22/21 release 24 hr Mental Status Exam Mental Status Exam Patient Appearance: Appropriate Patient Orientation: Person, Place, Time and Situation Level of Consciousness: Alert Patient Behavior: Talkative, Cooperative and Good Eye Contact Mood Description: Apprehensive Affect Description: Apprehensive Patient Cognition Impaired: No Ability to Follow Directions: Good Speech Pattern: Spontaneous Speech Memory Description: Intact Hallucinations: Auditory and Visual Perceptual Disturbances: Depersonalization and Derealization Thought Process: Goal Oriented Thought Content: positive for Circumstantial and positive for Suicidal Ideation (denies) Depressive Symptoms: Increased Anxiety and Low Self Esteem Judgement: Good Data Data Completed and Pending Completed studies during hospitalization [Text1]: 06/17/21 06/17/21 06/17/21 07:59 07:59 07:59 Creatinine 0.73 Estim Creat Clear Calc 195.1 Estimated GFR > 60 Estimat Average Glucose 100 Hemoglobin A1c % 5.1 Magnesium 2.1 Triglycerides 69 Cholesterol 197 LDL Cholesterol, Calc 139 HDL Cholesterol 45 Vitamin B12 833 Folate 9.0 TSH 1.11 Free T4 0.66 L DS: Summary Hospital Course Hospital Course: Admission to adult psychiatry to address symptoms of schizoaffective disorder- depressed, generalized anxiety disorder, autism spectrum disorder. Care plan, medication regime and out patient plan of care prior to admission were reviewed. Education was provided regarding management of symptoms, medications and side effects. Nursing and social service worked with Gwen on collateral contacts, care planning, education regarding symptom management, medications and discharge planning. Upon admission Gwen had initiated Venlafaxine ER. This was titrated to 75 mg then to 112.5 mg which was tolerated without adverse effect. Amantadine trial was initiated to address extrapyramidal symptoms. Prozac was discontinued with pt agreement when Venlafaxine was tolerated in titration. Time spent discussing smoking cessation with patient: 3 to 10 minutes Status at Discharge Functional status at discharge: independent ambulation Overall status at discharge: patient is back to baseline Time Spent with Patient Time attestation: Total time spent providing and/or coordinating discharge services: 35 Time spent: Greater than 30 minutes Discharge Plan Discharge Patient Disposition: Home, Self-Care Discharge Diagnosis: Schizoaffective Disorder, Depressed Generalized Anxiety Disorder Autism Spectrum Disorder Referrals: Dr. Mclaughlin (psychiatric medication management) [Other] - 06/30/21 12:40 pm (This is an in-office appointment) Dr. Bermudez (therapy) [Other] - 06/29/21 1:00 pm (This is a virtual Telehealth appointment ) Carrie Love MD [Primary Care Provider] - 1 Week (DR HAMEED AWARE OF DISCHARGE WILL CALL PT. WITH FOLLOW-UP APPOINTMENT.) Discharge Medications: New amantadine HCl 100 mg Capsule 100 mg PO BID Qty: 60 0RF venlafaxine 75 mg capsule,extended release 24hr 75 mg PO DAILY Qty: 30 0RF venlafaxine 37.5 mg capsule,extended release 24hr 37.5 mg PO DAILY Qty: 30 0RF Continued hydroxyzine pamoate 50 mg capsule 1 cap PO TID PRN (Reason: Anxiety) 0RF melatonin 3 mg tablet 3 mg PO BEDTIME PRN (Reason: Sleep) 0RF fexofenadine 180 mg tablet 1 tab PO DAILY 0RF lorazepam 0.5 mg tablet 1 tab PO BID PRN (Reason: Anxiety) 0RF metformin 500 mg tablet extended release 24 hr 1 tab PO DAILY 0RF naproxen 500 mg tablet 1 tab PO BID PRN (Reason: Pain) 0RF Advair HFA 115-21 mcg/actuation HFA aerosol inhaler 1 puff inhalation BID 0RF albuterol sulfate 90 mcg/actuation Hfa Aerosol Inhaler 2 puff INHALATION Q4-6H PRN (Reason: Shortness Of Breath) 0RF Nexplanon 68 mg Implant See Rx Instructions .ROUTE .COMPLEX 0RF Rx Instructions: IMPLANTED IN ARM perphenazine 8 mg Tablet 8 mg PO DAILY PRN (Reason: voices) Qty: 30 0RF perphenazine 8 mg Tablet 8 mg PO TID Qty: 90 0RF oxcarbazepine 600 mg tablet 1 tab PO BID Qty: 60 0RF gabapentin 100 mg capsule 200 mg PO TID Qty: 180 0RF Discontinued fluoxetine 20 mg capsule 3 cap PO QAM Qty: 90 0RF Discharge Orders: Discharge Order (Routine); Ordered 06/22/21 Ordered By: Jazmine Frazier Diet: advance to usual diet Activity on Discharge: As tolerated Stand Alone Forms: Patient Portal Discharge page, Community Support Care Plan Goals: Mood Stabilization Health Concerns: Schizoaffective Disorder, Depressed Generalized Anxiety Disorder Autism Spectrum Disorder Plan of Treatment: Attend scheduled appointments Take medications as directed Call/return if needed [facility] Crisis Team, Call as needed [phone] Assessment: Alert, oriented, non-suicidal, non-psychotic Discharge Date/Time: 06/22/21 15:14
== END 2021-06-22 15:14 | disposition home or self-care (01) | DRG 750 ==
PROVIDERS: Registered Nurse; Admitting Provider Psychiatry & Neurology Psychiatry; PCP Internal Medicine; Visit Provider Clinical Nurse Specialist Psychiatric/Mental Health, Adult
DX: F25.1 Schizoaffective disorder, depressive type (principal); R45.851 Suicidal ideations; B37.3 Candidiasis of vulva and vagina; J45.909 Unspecified asthma, uncomplicated; F41.1 Generalized anxiety disorder; F84.0 Autistic disorder; M79.7 Fibromyalgia; Z79.84 Long term (current) use of oral hypoglycemic drugs; Z91.51 Personal history of suicidal behavior; Z79.899 Other long term (current) drug therapy
CPT/HCPCS: 36415; 80061; 82565; 82607; 82746; 83036; 83735; 84439; 84443

== ENCOUNTER 2022-01-31 10:59 | Inpatient (IN) | payer OTHER, SELFPAY ==
--- NOTE | 2022-01-31 11:29 | ECG_ITS ---
Test Reason : med clearance Blood Pressure : / mmHG Vent. Rate : 093 BPM Atrial Rate : 093 BPM P-R Int : 176 ms QRS Dur : 076 ms QT Int : 376 ms P-R-T Axes : 053 028 011 degrees QTc Int : 467 ms Normal sinus rhythm Normal ECG When compared with ECG of 28-MAR-2021 14:20, No significant change was found Referred By: Noa Perez Electronically Signed By:VINCE CROSS MD
[2022-01-31] MEDS: LORazepam 1 MG TABLET 2 MG PO (11:30)
--- NOTE | 2022-01-31 11:38 | ED_ITS ---
HPI - Psych General Chief Complaint: Psychiatric Symptoms Stated Complaint: VOLUNART CRISIS EVAL,?'S WD FROM [facility] Time Seen by Provider: 01/31/22 11:11 Source: patient Mode of arrival: EMS Limitations: no limitations History of Present Illness HPI Narrative: 26 yo female hx of schizoaffective disorder, JUSTEN, psychosis, autism [facility] but on discharge 1 week ago they did not fill it for her she went through anxiety, tics, sharp pains, headaches at home - it has improved. She is feeling SI, AH now and isn't doing well. She also notes she went to [facility] [place] for menstrual pain and her pain was so bad that they gave her ketamine despite her schizoaffective disorder dx and it has made her hallucinations worse. MD complaint: suicidal ideation, feels depressed, anxiety and hallucinations Onset (ago): week(s) (1) Duration: getting worse History of same: Yes Relieving factors: none Exacerbating factors: other (lack of medications, ketamine dosing) Context: not taking psychiatric medications Associated psychiatric symptoms: depression, suicidal ideation, racing thoughts, auditory hallucinations and visual hallucinations Associated symptoms: insomnia If self harm: admits thoughts of self harm and has plan Related Data Home Medications Medication Instructions Recorded Confirmed fexofenadine 180 mg tablet 1 tab PO DAILY 03/26/21 06/16/21 fluticasone propionate 115 1 puff inhalation BID 03/26/21 06/16/21 mcg-salmeterol 21 mcg/actuation HFA inhaler (Advair HFA) hydroxyzine pamoate 50 mg capsule 1 cap PO TID PRN Anxiety 03/26/21 06/16/21 lorazepam 0.5 mg tablet 1 tab PO BID PRN Anxiety 03/26/21 06/16/21 melatonin 3 mg tablet 3 mg PO BEDTIME PRN Sleep 03/26/21 06/16/21 metformin 500 mg tablet,extended 1 tab PO DAILY 03/26/21 06/16/21 release 24 hr naproxen 500 mg tablet 1 tab PO BID PRN Pain 03/26/21 06/16/21 albuterol sulfate 90 mcg/actuation 2 puff inhalation Q4-6H PRN 03/27/21 06/16/21 aerosol inhaler Shortness Of Breath etonogestrel 68 mg subdermal See Rx Instructions .Route .COMPLEX 12/12/21 03/03 /22 implant (Nexplanon) Previous Rx's Medication Instructions Recorded gabapentin 100 mg capsule 200 mg PO TID #180 caps 04/04/21 oxcarbazepine 600 mg tablet 1 tab PO BID #60 tabs 04/04/21 perphenazine 8 mg tablet 8 mg PO DAILY PRN voices #30 tabs 04/04/21 perphenazine 8 mg tablet 8 mg PO TID #90 tabs 04/04/21 amantadine HCl 100 mg capsule 100 mg PO BID #60 caps 06/22/21 venlafaxine 37.5 mg 37.5 mg PO DAILY #30 caps 06/22/21 capsule,extended release 24 hr venlafaxine 75 mg capsule,extended 75 mg PO DAILY #30 caps 06/22/21 release 24 hr Allergies Allergy/AdvReac Type Severity Reaction Status Date / Time tree nut Allergy Anaphylaxis Verified 03/26/21 18:24 Review of Systems Review of Systems: Constitutional : No Fever, No Chills ENT/Mouth : No Ear Pain, No Nasal Congestion, No sore throat Eyes: No Eye Pain, No Swelling, No Redness Cardiovascular : No Chest Pain, No SOB Respiratory : No Cough, No Sputum, No Dyspnea Gastrointestinal : No Nausea, No Vomiting, No Diarrhea, No Hematochezia, No Melena Genitourinary : No Dysuria, No Urinary Frequency, No Hematuria Musculoskeletal : No Myalgias Skin : No Skin Lesions, No rash Neuro : No Weakness, No Numbness, No Paresthesias, No Dizziness, No Headache Psych : positive Anxiety, positive Depression, positive SI no HI, pos AH Heme/Lymph: No Lymphadenopathy Endocrine : No Polyuria, No Polydipsia All other systems reviewed and are negative [facility] [place] Past Medical History Attestation statement: The following information was validated with the patient. Medical History Anxiety Continuous auditory hallucinations Depression Suicidal ideations Surgical History No pertinent past surgical history Social History Social History Household Members: Adopted Family Household Members Other:: Pt lives in assisted residential facility Housing: Assisted Living Facility Do you presently have visiting nurse or other home services: No Alcohol intake: unknown Patient Tobacco Use Status: Never used Tobacco e-Cigarette/Vaping Use: Never Used Second Hand Smoke Exposure: No Advance Directives: No service: No Sexual orientation: Did not discuss Physical Exam Vital Signs: Vital Signs: Last Vital Signs Temp 96.5 F L 01/31/22 11:48 Pulse 98 01/31/22 11:48 Resp 18 01/31/22 11:48 BP 147/92 H 01/31/22 11:48 Pulse Ox 95 01/31/22 11:48 O2 Del Method 01/31/22 11:48 BMI result Body Mass Index 52.7 Appearance: Alert. Oriented X3. No acute distress. Very anxious at times, hyperverbal, pressured speech, switches subjects frequently Eyes: Pupils equal, round and reactive to light. ENT: Pharynx normal. Neck: Normal inspection. Neck supple. CVS: Normal heart rate and rhythm. Pulses normal. Respiratory: No respiratory distress. Breath sounds normal. Abdomen: Soft and nontender. Skin: Skin warm and dry. Normal skin color. Normal skin turgor. Extremities: No lower extremity edema. No calf ttp Neuro: Oriented X 3. No motor deficit. No sensory deficit. CN2-12 intact. Has some frequent eyelid fluttering states she has tics Course Course Course Narrative: Physician observation started at 125pm. Patient placed in physician observation because the patient needed more time for BHn to assess the need for psych admission. At the time observation was started the patient's vitals were stable, patient is alert and oriented but slightly agitated, Neuro: nonfocal, CV RRR, Lungs clear seen by CARE team 333pm inpatient bed search MDM - Psych MDM Narrative Medical decision making narrative: 26 yo female hx of schizoaffective disorder, JUSTEN, psychosis, autism states [facility] but on discharge 1 week ago they did not fill it for her she went through anxiety, tics, sharp pains, headaches at home - it has improved. She is feeling SI, AH now and isn't doing well. Will need labs, BHN consult. Oral ativan for anxiety. Dispo per results and workup Lab Data Result diagrams: 01/31/22 12:42 01/31/22 12:42 Labs: Lab Results 01/31/22 01/31/22 01/31/22 Range/Units 12:08 12:08 12:08 WBC (4.8-10.8) X10*3/uL RBC (4.20-5.50) X10*6/uL Hgb (12.0-16.0) g/dl Hct (37.0-47.0) % MCV (80.0-98.0) fL MCH (27.0-33.0) pg MCHC (31.0-35.0) g/dl RDW (11.0-16.0) % Plt Count (160-400) X10*3/uL MPV (9.4-12.3) fL Immature Gran % (Auto) (0.0-0.4) % Neut % (Auto) (45-73) % Lymph % (Auto) (20-40) % [place] % (Auto) (2-11) % Eos % (Auto) (0-4) % Baso % (Auto) (0-2) % Lymph # (Auto) (1.2-4.9) X10*3/uL [place] # (Auto) (0.1-1.2) X10*3/uL Eos # (Auto) (0.0-0.4) X10*3/uL Baso # (Auto) (0.0-0.2) X10*3/uL Abs Immat Gran (auto) (0.00-0.03) X10*3/uL Absolute Neuts (auto) (2.0-8.3) x10*3/uL Absolute Nucleated RBC (0.0-0.012) X10*3/uL Nucleated RBC % (auto) (0.0-0.2) /100WBC Sodium (135-145) mmol/L Potassium (3.3-5.1) mmol/L Chloride (96-108) mmol/L Carbon Dioxide (22-29) mmol/L Anion Gap (12-20) BUN (9-16) mg/dL Creatinine (0.5-1.4) mg/dL Estim Creat Clear Calc Estimated GFR Random Glucose (60-115) mg/dL Calcium (8.4-10.2) mg/dL Total Bilirubin (0.0-1.0) mg/dL Direct Bilirubin (0.0-0.5) mg/dL AST (5-31) U/L ALT (0-31) U/L Alkaline Phosphatase (39-117) U/L Total Protein (6.5-8.0) g/dL Albumin (3.5-5.0) g/dL Urine Test NEGATIVE (NEGATIVE) Urine Opiates Screen Not Detected (Not Detect) Urine Fentanyl Screen Not Detected (Not Detect) Ur Barbiturates Screen Not Detected (Not Detect) Ur Phencyclidine Scrn Not Detected (Not Detect) Ur Amphetamines Screen Not Detected (Not Detect) U Benzodiazepines Scrn Not Detected (Not Detect) Urine Cocaine Screen Not Detected (Not Detect) U Marijuana (THC) Screen Not Detected (Not Detect) COVID-19 ([facility]) Negative (Negative) COVID-19 Clin Com See Note 01/31/22 01/31/22 Range/Units 12:42 12:42 WBC 6.9 (4.8-10.8) X10*3/uL RBC 4.30 (4.20-5.50) X10*6/uL Hgb 12.9 (12.0-16.0) g/dl Hct 38.2 (37.0-47.0) % MCV 88.8 (80.0-98.0) fL MCH 30.0 (27.0-33.0) pg MCHC 33.8 (31.0-35.0) g/dl RDW 11.7 (11.0-16.0) % Plt Count 327 (160-400) X10*3/uL MPV 9.4 (9.4-12.3) fL Immature Gran % (Auto) 0.3 (0.0-0.4) % Neut % (Auto) 64.0 (45-73) % Lymph % (Auto) 27.7 (20-40) % [place] % (Auto) 5.7 (2-11) % Eos % (Auto) 1.9 (0-4) % Baso % (Auto) 0.4 (0-2) % Lymph # (Auto) 1.9 (1.2-4.9) X10*3/uL [place] # (Auto) 0.4 (0.1-1.2) X10*3/uL Eos # (Auto) 0.1 (0.0-0.4) X10*3/uL Baso # (Auto) 0.0 (0.0-0.2) X10*3/uL Abs Immat Gran (auto) 0.02 (0.00-0.03) X10*3/uL Absolute Neuts (auto) 4.4 (2.0-8.3) x10*3/uL Absolute Nucleated RBC 0.000 (0.0-0.012) X10*3/uL Nucleated RBC % (auto) 0.0 (0.0-0.2) /100WBC Sodium 141 (135-145) mmol/L Potassium 4.1 (3.3-5.1) mmol/L Chloride 106 (96-108) mmol/L Carbon Dioxide 23 (22-29) mmol/L Anion Gap 16 (12-20) BUN 11 (9-16) mg/dL Creatinine 0.75 (0.5-1.4) mg/dL Estim Creat Clear Calc 190.7 Estimated GFR > 60 Random Glucose 93 (60-115) mg/dL Calcium 9.0 (8.4-10.2) mg/dL Total Bilirubin 0.6 (0.0-1.0) mg/dL Direct Bilirubin 0.2 (0.0-0.5) mg/dL AST 21 (5-31) U/L ALT 18 (0-31) U/L Alkaline Phosphatase 102 D (39-117) U/L Total Protein 7.0 (6.5-8.0) g/dL Albumin 4.2 (3.5-5.0) g/dL Urine Test (NEGATIVE) Urine Opiates Screen (Not Detect) Urine Fentanyl Screen (Not Detect) Ur Barbiturates Screen (Not Detect) Ur Phencyclidine Scrn (Not Detect) Ur Amphetamines Screen (Not Detect) U Benzodiazepines Scrn (Not Detect) Urine Cocaine Screen (Not Detect) U Marijuana (THC) Screen (Not Detect) COVID-19 ([facility]) (Negative) COVID-19 Clin Com ECG Data Attestation: I personally reviewed and interpreted this ECG as follows: ECG interpretation date: 01/31/22 ECG interpretation time: 14:17 Interpretation: Rate: 93 Rhythm: NSR [place]: normal Normal P waves. Normal VERITO. Normal QRS complex. ST T wave : normal no AMADOU qTC: normal prior studies: no acute ischemia The study has been interpreted contemporaneously by me. . Discharge Plan Discharge Clinical Impression: Schizoaffective disorder, depressive type, JUSTEN (generalized anxiety disorder), Suicidal ideation Patient Disposition: Still a Patient Prescriptions: No Action amantadine HCl 100 mg Capsule 100 mg PO BID Qty: 60 0RF venlafaxine 75 mg capsule,extended release 24hr 75 mg PO DAILY Qty: 30 0RF venlafaxine 37.5 mg capsule,extended release 24hr 37.5 mg PO DAILY Qty: 30 0RF hydroxyzine pamoate 50 mg capsule 1 cap PO TID PRN (Reason: Anxiety) melatonin 3 mg tablet 3 mg PO BEDTIME PRN (Reason: Sleep) fexofenadine 180 mg tablet 1 tab PO DAILY lorazepam 0.5 mg tablet 1 tab PO BID PRN (Reason: Anxiety) metformin 500 mg tablet extended release 24 hr 1 tab PO DAILY naproxen 500 mg tablet 1 tab PO BID PRN (Reason: Pain) Advair HFA 115-21 mcg/actuation HFA aerosol inhaler 1 puff inhalation BID albuterol sulfate 90 mcg/actuation Hfa Aerosol Inhaler 2 puff INHALATION Q4-6H PRN (Reason: Shortness Of Breath) Nexplanon 68 mg Implant See Rx Instructions .ROUTE .COMPLEX Rx Instructions: IMPLANTED IN ARM perphenazine 8 mg Tablet 8 mg PO DAILY PRN (Reason: voices) Qty: 30 0RF perphenazine 8 mg Tablet 8 mg PO TID Qty: 90 0RF oxcarbazepine 600 mg tablet 1 tab PO BID Qty: 60 0RF gabapentin 100 mg capsule 200 mg PO TID Qty: 180 0RF
[2022-01-31 11:48] VITALS: BP 147/92; PULSE 98; RESP 18; TEMP 35.8; O2SAT 95; BMI 52.7
--- NOTE | 2022-01-31 11:51 | PC.NURSE ---
pt medicated per order
[2022-01-31 12:47] LABS: MANUAL DIFF FLAG NO
[2022-01-31 12:49] LABS: UPreg QC Valid YES; Urine Pregnancy NEGATIVE (NEGATIVE)
[2022-01-31 12:51] LABS: Basophils Percent Auto 0.4 % (0-2); Eosinophils Absolute Auto 0.1 X10*3/uL (0.0-0.4); Eosinophils Percent Auto 1.9 % (0-4); Hematocrit 38.2 % (37.0-47.0); Hemoglobin 12.9 g/dl (12.0-16.0); Imm Gran Abs Auto 0.02 X10*3/uL (0.00-0.03); Imm Gran Pct Auto 0.3 % (0.0-0.4); Lymphocytes Absolute Auto 1.9 X10*3/uL (1.2-4.9); Lymphocytes Percent Auto 27.7 % (20-40); Mean Corpuscular HGB Conc 33.8 g/dl (31.0-35.0); Mean Corpuscular Volume 88.8 fL (80.0-98.0); Mean Platelet Volume 9.4 fL (9.4-12.3); Monocytes Absolute Auto 0.4 X10*3/uL (0.1-1.2); Monocytes Percent Auto 5.7 % (2-11); Neutrophils Absolute Auto 4.4 x10*3/uL (2.0-8.3); Platelet Count 327 X10*3/uL (160-400); Red Cell Distribution Width 11.7 % (11.0-16.0); White Blood Count 6.9 X10*3/uL (4.8-10.8)
[2022-01-31 12:58] LABS: Amphetamine Screen Urine Not Detected (Not Detect); Barbiturates, Urine Not Detected (Not Detect); Benzodiazepines Screen Urine Not Detected (Not Detect); Cannabinoid Screen Urine Not Detected (Not Detect); Cocaine Screen Urine Not Detected (Not Detect); Fentanyl, urine Not Detected (Not Detect); Opiate Screen Urine Not Detected (Not Detect); Phencyclidine Screen Urine Not Detected (Not Detect)
[2022-01-31 13:06] LABS: Alanine Aminotransferase 18 U/L (0-31); Albumin Level 4.2 g/dL (3.5-5.0); Alkaline Phosphatase 102 U/L (39-117); Anion Gap 16 (12-20); Aspartate Amino Transferase 21 U/L (5-31); Bilirubin Direct 0.2 mg/dL (0.0-0.5); Bilirubin Total 0.6 mg/dL (0.0-1.0); Blood Urea Nitrogen 11 mg/dL (9-16); Carbon Dioxide 23 mmol/L (22-29); Chloride 106 mmol/L (96-108); Creatinine Clr Calc Pharmacy 190.7; Estimated Glomerular Filt Rate > 60; Glucose Random 93 mg/dL (60-115); Potassium 4.1 mmol/L (3.3-5.1); Sodium 141 mmol/L (135-145)
[2022-01-31 13:08] LABS: COVID-19 Test Negative (Negative); IDNOW Serial# 16C4AD1C
--- NOTE | 2022-01-31 13:27 | PC.NURSE ---
[facility] number Jeyson from [facility] called- his personal cell phone which pt is NOT to have is [phone] if we need to speak with him about patient please reach out.
--- NOTE | 2022-01-31 20:13 | PC.NURSE ---
Patient requesting that her mother and brother be removed from contact list. Spoke with patient registration and they will remove per patient request.
[2022-01-31] MEDS: Gabapentin 100 MG CAPSULE 200 MG PO (21:40)
--- NOTE | 2022-01-31 21:41 | PC.NURSE ---
Patient refused scheduled Amantadine 100 mg and Perphenazine 8 mg stating medication has been discontinued by the [facility]. Patient Hyperverbal and tangential, demanding at time, VSS, will continue to monitor.
[2022-01-31] MEDS: LORazepam 1 MG TABLET PO (23:04)
[2022-01-31 23:06] VITALS: BP 125/77; PULSE 90; RESP 18; TEMP 37; O2SAT 98
--- NOTE | 2022-02-01 05:18 | PC.NURSE ---
Patient slept through the night, no distress observed/reported, patient's thought content paranoid secondary to non compliant with her Trilifon, thought process tangential and hyper-verbal, patient was assessed by care team, disposition section 12 inpatient bed search, pre-accepted to [facility]/pending admission, patient is not fully compliant with her medication, behavior unpredictable, VSS, will continue to monitor.
[2022-02-01] MEDS: Gabapentin 100 MG CAPSULE 200 MG PO ×2 (09:04→15:44)
[2022-02-01] MEDS: metFORMIN HCl ER 500 MG TAB.ER.24H PO (09:04)
[2022-02-01 09:05] VITALS: BP 146/75; PULSE 106; RESP 20; TEMP 36.6; O2SAT 99
--- NOTE | 2022-02-01 11:51 | PC.ADMIT ---
PT admitted from [facility] on a conditional voluntary with a diagnosis of Schizoaffective Disorder, Bipolar type, Borderline personality disorder, and Autism Spectrum. Pt presented to the emergency room after calling 911 at the suggestion of her [facility] workers and PCP due to metal instabilty. PT reports that she has been calling her psychiatrist and [facility] worker reporting that she was going to kill herself for the past several days. PT states that her providers did not get back to her, even after she told them she was going to kill herself. Pt states she feels alone and that noone cares or loves her. PT continues to endorse SI, states that she doesn't care anymore. PT states that she was recently at [facility] and they did not discharge her on a medication that she had been taking and that she went through withdrawal due to this, she repors the medication was effexor, she states she doesn't want to be on effexor anymore anyway. PT states she is medicaton resistant and has had negative reactions to most of the medications that she has tried, reports that when she was on SSRIs she because more suicidal, reports extreme weight gain while on risperdal and abilify, she reports she became very aggressive while on geodon. PT reporting auditory and visual hallucinations, stating a man named sonny was in the room with us standing in the corner but that he was there to help. Pt requesting a full battery of tests for STIs, and a pelvic exam stating that she wants to get GIULIANA. PT requesting to go to and work with providers on that unit. Pt declined to sign releases of information stating that she does not want us speaking with her [facility] or [facility] Worker or any of her providers. Pt placed on 15 minute checks for safety.
[2022-02-01] MEDS: LORazepam 1 MG TABLET PO (12:50)
--- NOTE | 2022-02-01 13:18 | PC.NURSE ---
PT states if i'm not seen in 30 minutes by a psych provider i'm going to hurt myself, i have identified 4 different ways in 3 rooms of how to hurt myself PT continues to repeat that she is going to harm herself, declined to share how she is planning to harm herself. PT not alla for safety. Pt states i'm banned from [facility] for drinking bleach, I will hurt myself here if they test me Pt showed this RN scars on her arms, stating that she got those in previous hospitalizations. Repeating that she is serious and will harm herself. Provider notified, pt placed on 1:1 for safety.
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
== END 2022-02-01 17:37 | disposition home health service (06) | DRG 752 ==
LOC: HO.ED 02-01 07:18 → HO.PADLT16 02-01 08:46
PROVIDERS: Admitting Provider Psychiatry & Neurology Psychiatry; Emergency Provider Emergency Medicine; PCP Internal Medicine; Visit Provider Psychiatry & Neurology Psychiatry
DX: F60.3 Borderline personality disorder (principal); F41.9 Anxiety disorder, unspecified; F43.10 Post-traumatic stress disorder, unspecified; Z20.822 Contact with and (suspected) exposure to COVID-19; Z91.51 Personal history of suicidal behavior; Z79.84 Long term (current) use of oral hypoglycemic drugs; Z79.899 Other long term (current) drug therapy
CPT/HCPCS: 80048; 80076; 80307; 81025; 85025; 87635; 93005; 99285

== ENCOUNTER 2022-03-28 17:04 | Emergency (ER) | payer OTHER, SELFPAY ==
[2022-03-28 17:08] VITALS: BP 138/74; BP 154/90; PULSE 103; PULSE 88; RESP 20; TEMP 36.2; O2SAT 97; O2SAT 98; BMI 36.9
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
--- NOTE | 2022-03-28 17:53 | PC.NURSE ---
spoke with Hemal, confirmed patient had an eval in community.
[2022-03-28] MEDS: hydrOXYzine HCL 50 MG TABLET PO (18:04)
[2022-03-28] MEDS: LORazepam 1 MG TABLET 2 MG PO (18:04)
--- NOTE | 2022-03-28 18:13 | PC.NURSE ---
patient request Allen Keith her boyfriend be contacted if needed,
[2022-03-28 18:15] LABS: UPreg QC Valid YES; Urine Pregnancy NEGATIVE (NEGATIVE)
[2022-03-28 18:21] LABS: Amphetamine Screen Urine Not Detected (Not Detect); Barbiturates, Urine Not Detected (Not Detect); Benzodiazepines Screen Urine Not Detected (Not Detect); Cannabinoid Screen Urine Not Detected (Not Detect); Cocaine Screen Urine Not Detected (Not Detect); Fentanyl, urine Not Detected (Not Detect); Opiate Screen Urine Not Detected (Not Detect); Phencyclidine Screen Urine Not Detected (Not Detect)
[2022-03-28 18:49] LABS: Influenza A PCR NEGATIVE (Negative); Influenza B PCR NEGATIVE (Negative); Resp Syncy Virus RNA Qual PCR NEGATIVE (Negative); SARS COV2 PCR INHOUSE POSITIVE (Negative)
--- NOTE | 2022-03-29 06:24 | PC.NURSE ---
Patient slept through the night, no distress observed/reported, disposition per [facility], [place] is section 12 inpatient bed search, med rec completed/pending provider's approval, patient + for COVID, no respiratory observed/reported, patient compliant with quarantine protocol, behavior appropriate, med rec completed/pending provider's approval, VSS, will continue to monitor.
[2022-03-29 06:47] VITALS: BP 112/61; PULSE 74; RESP 17; TEMP 36.9; O2SAT 98
[2022-03-29 08:08] VITALS: RESP 16
--- NOTE | 2022-03-29 10:19 | PC.NURSE ---
pt is a/o x 4 no sob/chris noted speaks in full sentences. pt denies any si/hi. pt denies any pain/disc. pt refused her am meds stating that she does not take any scheduled meds only prn meds.
[2022-03-29 10:24] VITALS: BP 155/84; PULSE 107; RESP 20; TEMP 37.2; O2SAT 98
[2022-03-29 10:50] LABS: COVID-19 Test Negative (Negative); IDNOW Serial# 16C4AD1C
== END 2022-03-29 14:51 | disposition home or self-care (01) ==
PROVIDERS: Student in an Organized Health Care Education/Training Program; Emergency Provider Internal Medicine
DX: F33.1 Major depressive disorder, recurrent, moderate (principal); F25.9 Schizoaffective disorder, unspecified; R45.851 Suicidal ideations; F41.1 Generalized anxiety disorder; F43.0 Acute stress reaction; Z20.822 Contact with and (suspected) exposure to COVID-19; Z79.899 Other long term (current) drug therapy
CPT/HCPCS: 0241U; 80307; 81025; 87635; 99284

== ENCOUNTER 2022-08-21 08:58 | Outpatient (REF) | payer OTHER, SELFPAY ==
--- NOTE | ~2022-08-21 | XR_ITS ---
EXAMINATION: 1. RADIOGRAPHS RIGHT HAND 2. RADIOGRAPHS LEFT HAND 3. RADIOGRAPHS RIGHT ANKLE 4. RADIOGRAPHS LEFT ANKLE CLINICAL INFORMATION: Diffuse pain COMPARISON: None TECHNIQUE: 3 views of each hand and 3 views of each ankle were obtained FINDINGS: Right hand: Visualized portion of the distal right radius and ulna demonstrate no fracture. Carpal rows are well aligned. No carpal bone fracture. No metacarpal or phalangeal fracture. No focal soft tissue swelling of the hand. No radiopaque foreign body. Left hand: Visualized portion of the distal left radius and ulna demonstrate no fracture. Carpal rows are well aligned. No carpal, metacarpal or phalangeal fracture. No appreciable degenerative changes of the left hand. No focal soft tissue swelling. No radiopaque foreign body. Right ankle: Visualized portion of the distal tibia and fibula demonstrate no fracture. Ankle mortise is maintained. No focal soft tissue swelling of the ankle. No gross ankle joint effusion. Left ankle: Visualized portion of the distal left tibia and fibula demonstrate no fracture. Ankle mortise is maintained. No focal soft tissue swelling of the left ankle. No gross ankle joint effusion. XR/XR ankle LT min 3V IMPRESSION: 1. Unremarkable radiographs of the bilateral hands. 2. Unremarkable radiographs of both ankles.
--- NOTE | ~2022-08-21 | XR_ITS ---
EXAMINATION: 1. RADIOGRAPHS RIGHT HAND 2. RADIOGRAPHS LEFT HAND 3. RADIOGRAPHS RIGHT ANKLE 4. RADIOGRAPHS LEFT ANKLE CLINICAL INFORMATION: Diffuse pain COMPARISON: None TECHNIQUE: 3 views of each hand and 3 views of each ankle were obtained FINDINGS: Right hand: Visualized portion of the distal right radius and ulna demonstrate no fracture. Carpal rows are well aligned. No carpal bone fracture. No metacarpal or phalangeal fracture. No focal soft tissue swelling of the hand. No radiopaque foreign body. Left hand: Visualized portion of the distal left radius and ulna demonstrate no fracture. Carpal rows are well aligned. No carpal, metacarpal or phalangeal fracture. No appreciable degenerative changes of the left hand. No focal soft tissue swelling. No radiopaque foreign body. Right ankle: Visualized portion of the distal tibia and fibula demonstrate no fracture. Ankle mortise is maintained. No focal soft tissue swelling of the ankle. No gross ankle joint effusion. Left ankle: Visualized portion of the distal left tibia and fibula demonstrate no fracture. Ankle mortise is maintained. No focal soft tissue swelling of the left ankle. No gross ankle joint effusion. XR/XR ankle RT min 3V IMPRESSION: 1. Unremarkable radiographs of the bilateral hands. 2. Unremarkable radiographs of both ankles.
--- NOTE | ~2022-08-21 | XR_ITS ---
EXAMINATION: 1. RADIOGRAPHS RIGHT HAND 2. RADIOGRAPHS LEFT HAND 3. RADIOGRAPHS RIGHT ANKLE 4. RADIOGRAPHS LEFT ANKLE CLINICAL INFORMATION: Diffuse pain COMPARISON: None TECHNIQUE: 3 views of each hand and 3 views of each ankle were obtained FINDINGS: Right hand: Visualized portion of the distal right radius and ulna demonstrate no fracture. Carpal rows are well aligned. No carpal bone fracture. No metacarpal or phalangeal fracture. No focal soft tissue swelling of the hand. No radiopaque foreign body. Left hand: Visualized portion of the distal left radius and ulna demonstrate no fracture. Carpal rows are well aligned. No carpal, metacarpal or phalangeal fracture. No appreciable degenerative changes of the left hand. No focal soft tissue swelling. No radiopaque foreign body. Right ankle: Visualized portion of the distal tibia and fibula demonstrate no fracture. Ankle mortise is maintained. No focal soft tissue swelling of the ankle. No gross ankle joint effusion. Left ankle: Visualized portion of the distal left tibia and fibula demonstrate no fracture. Ankle mortise is maintained. No focal soft tissue swelling of the left ankle. No gross ankle joint effusion. XR/XR hand RT min 3V IMPRESSION: 1. Unremarkable radiographs of the bilateral hands. 2. Unremarkable radiographs of both ankles.
--- NOTE | ~2022-08-21 | XR_ITS ---
EXAMINATION: 1. RADIOGRAPHS RIGHT HAND 2. RADIOGRAPHS LEFT HAND 3. RADIOGRAPHS RIGHT ANKLE 4. RADIOGRAPHS LEFT ANKLE CLINICAL INFORMATION: Diffuse pain COMPARISON: None TECHNIQUE: 3 views of each hand and 3 views of each ankle were obtained FINDINGS: Right hand: Visualized portion of the distal right radius and ulna demonstrate no fracture. Carpal rows are well aligned. No carpal bone fracture. No metacarpal or phalangeal fracture. No focal soft tissue swelling of the hand. No radiopaque foreign body. Left hand: Visualized portion of the distal left radius and ulna demonstrate no fracture. Carpal rows are well aligned. No carpal, metacarpal or phalangeal fracture. No appreciable degenerative changes of the left hand. No focal soft tissue swelling. No radiopaque foreign body. Right ankle: Visualized portion of the distal tibia and fibula demonstrate no fracture. Ankle mortise is maintained. No focal soft tissue swelling of the ankle. No gross ankle joint effusion. Left ankle: Visualized portion of the distal left tibia and fibula demonstrate no fracture. Ankle mortise is maintained. No focal soft tissue swelling of the left ankle. No gross ankle joint effusion. XR/XR hand LT min 3V IMPRESSION: 1. Unremarkable radiographs of the bilateral hands. 2. Unremarkable radiographs of both ankles.
== END 2022-08-21 08:59 | disposition home or self-care (01) ==
LOC: HO.XRAY 08:58
PROVIDERS: Visit Provider Internal Medicine Rheumatology
DX: M25.571 Pain in right ankle and joints of right foot (principal); M25.572 Pain in left ankle and joints of left foot; M25.531 Pain in right wrist; M25.532 Pain in left wrist; M79.7 Fibromyalgia
CPT/HCPCS: 73130; 73610; 99202

== ENCOUNTER 2022-08-21 10:45 | Outpatient (REF) | payer OTHER, SELFPAY ==
[2022-08-21 14:00] LABS: C Reactive Protein 1.06 mg/dL (< or = 0.50); Rheumatoid Factor < 13.0 IU/mL (<15.0)
[2022-08-21 14:20] LABS: Erythrocyte Sedimentation Rate 16 MM/HR (0-20)
[2022-08-21 14:56] LABS: Creatinine Urine 252.01 mg/dL; Protein/Creatinine Ratio, Ur 0.05 (<0.2); Total Protein Urine Random 13 mg/dL (<12)
[2022-08-23 11:23] LABS: Immunoglobulin E 321 kU/L (<OR=114)
[2022-08-23 15:18] LABS: Cyclic Citrullinated Peptide <16 UNITS
[2022-08-23 21:34] LABS: Anti DNA DS Antibody <1 IU/mL; Antibody to SS-A Antigen <1.0 NEG AI (<1.0 NEG); Antibody to SS-B Antigen <1.0 NEG AI (<1.0 NEG); SM/Ribonucleoprotein Ab <1.0 NEG AI (<1.0 NEG); Smith Protein <1.0 NEG AI (<1.0 NEG)
[2022-08-23 22:04] LABS: Complement C3 167 mg/dL (83-193)
[2022-08-26 13:13] LABS: Anti Nuclear Antibody Screen POSITIVE (NEGATIVE)
== END 2022-08-21 10:46 | disposition home or self-care (01) ==
LOC: HO.10HDL 10:45
PROVIDERS: Absent Provider Pediatrics; Visit Provider Internal Medicine Rheumatology
DX: R76.8 Other specified abnormal immunological findings in serum (principal); M25.531 Pain in right wrist; M25.532 Pain in left wrist
CPT/HCPCS: 36415; 82785; 84156; 85652; 86003; 86038; 86039; 86140; 86160; 86200; 86225; 86235; 86431

== ENCOUNTER 2022-09-23 19:55 | Emergency (ER) | payer OTHER, SELFPAY ==
[2022-09-23 19:59] VITALS: BP 148/90; PULSE 85; O2SAT 99
[2022-09-23 20:04] VITALS: BP 125/58; PULSE 92; RESP 17; TEMP 36.6; O2SAT 100
[2022-09-23 20:29] VITALS: BP 130/67; PULSE 83; RESP 16; TEMP 36.9; O2SAT 99; BMI 54.0
[2022-09-23 22:09] LABS: MANUAL DIFF FLAG NO
[2022-09-23 22:13] LABS: Basophils Percent Auto 0.3 % (0-2); Eosinophils Absolute Auto 0.2 X10*3/uL (0.0-0.4); Eosinophils Percent Auto 2.3 % (0-4); Hematocrit 38.4 % (37.0-47.0); Hemoglobin 12.5 g/dl (12.0-16.0); Imm Gran Abs Auto 0.03 X10*3/uL (0.00-0.03); Imm Gran Pct Auto 0.3 % (0.0-0.4); Lymphocytes Absolute Auto 3.5 X10*3/uL (1.2-4.9); Lymphocytes Percent Auto 36.3 % (20-40); Mean Corpuscular HGB Conc 32.6 g/dl (31.0-35.0); Mean Corpuscular Volume 89.1 fL (80.0-98.0); Mean Platelet Volume 9.6 fL (9.4-12.3); Monocytes Absolute Auto 0.9 X10*3/uL (0.1-1.2); Monocytes Percent Auto 8.8 % (2-11); Platelet Count 330 X10*3/uL (160-400); Red Blood Count 4.31 X10*6/uL (4.20-5.50); Red Cell Distribution Width 12.1 % (11.0-16.0); White Blood Count 9.6 X10*3/uL (4.8-10.8)
[2022-09-23 22:29] LABS: Alanine Aminotransferase 16 U/L (0-31); Albumin Level 3.7 g/dL (3.5-5.0); Alkaline Phosphatase 83 U/L (39-117); Anion Gap 11 (12-20); Aspartate Amino Transferase 14 U/L (5-31); Bilirubin Direct 0.1 mg/dL (0.0-0.5); Bilirubin Total 0.4 mg/dL (0.0-1.0); Blood Urea Nitrogen 16 mg/dL (9-16); Calcium 9.1 mg/dL (8.4-10.2); Carbon Dioxide 25 mmol/L (22-29); Chloride 108 mmol/L (96-108); Estimated Glomerular Filt Rate > 60; Ethanol < 10 mg/dL; Glucose Random 85 mg/dL (60-115); Potassium 4.2 mmol/L (3.3-5.1); Sodium 140 mmol/L (135-145); Total Protein 6.5 g/dL (6.5-8.0)
--- NOTE | 2022-09-23 22:32 | ED.GENADULT ---
HPI - General Adult General Chief complaint: General Medical Stated complaint: crisis Time Seen by Provider: 09/23/22 21:21 Source: patient and EMS Mode of arrival: EMS Limitations: no limitations History of Present Illness HPI narrative: 27-year-old female with a history of autism, borderline personality disorder, fibromyalgia presents to the ER with complaints of intermittent blurry vision, tingling/restlessness in her lower extremities, dry eye, feeling foggy and drowsy since yesterday. Patient reports she was seen at [facility] for an intentional overdose 2 days ago in which she took 50 50 mg tablets of Benadryl. Patient reports she was eventually seen by psychiatry and was cleared for discharge home. She is denying any current suicidal or homicidal ideations. Patient denies any additional ingestion of Benadryl or other substances. Related Data Home Medications Medication Instructions Recorded Confirmed fluticasone propionate 115 1 puff inhalation BID 03/26/21 08/21/22 mcg-salmeterol 21 mcg/actuation HFA inhaler (Advair HFA) albuterol sulfate 90 mcg/actuation 2 inh inhalation Q4H PRN Shortness 01/31/22 08/21/22 aerosol inhaler (Ventolin HFA) Of Breath aripiprazole 30 mg tablet 30 mg PO DAILY 08/21/22 08/21/22 melatonin 5 mg tablet 5 mg PO BEDTIME 08/21/22 08/21/22 norgestimate-ethinyl estradiol 1 tab PO DAILY 08/21/22 08/21/22 0.18 mg/0.215mg/0.25mg-35 mcg(28)tablet (Tri-Estarylla) Previous Rx's Medication Instructions Recorded meloxicam 15 mg tablet 15 mg PO DAILY #30 tabs 08/21/22 Allergies Allergy/AdvReac Type Severity Reaction Status Date / Time tree nut Allergy Anaphylaxis Verified 08/21/22 09:12 Review of Systems Review of Systems: Yes all other systems are reviewed and are negative Constitutional: Constitutional: Reports no additional constitutional complaints, Denies body ache(s), Denies chills, Denies fever(s), Denies headache(s) and Denies weakness Comments: +drowsiness Eyes: Eyes: Reports no additional eye complaints, Reports blurry vision and Denies change in vision Comments: +dry eyes ENT: Reports system reviewed and no additional complaints, except as documented, Denies dizziness, Denies headache(s), Denies nasal congestion, Denies nasal discharge and Denies neck pain Cardiovascular: Cardiovascular: Reports no additional cardiovascular complaints, Denies chest pain, Denies leg edema and Denies dyspnea Respiratory: Respiratory: Reports no additional respiratory complaints, Denies cough and Denies dyspnea Gastrointestinal: Gastrointestinal: Reports no additional gastrointestinal complaints, Denies abdominal pain, Denies diarrhea, Denies nausea and Denies vomiting Genitourinary: Genitourinary: Reports no additional female genitourinary complaints and Denies urinary incontinence Musculoskeletal: Musculoskeletal: Reports no additional musculoskeletal complaints, Denies back pain, Denies arthralgias, Denies joint swelling, Denies neck pain, Denies numbness and Reports tingling Comments: +restlessness Integumentary/Breasts: Skin/Breast: Reports system reviewed and no additional complaints, except as docu and Denies rash Neurologic: Reports system reviewed and no additional complaints, except as documented, Denies dizziness, Denies headache(s), Denies numbness, Reports tingling and Denies weakness PMFSH Past Medical History Attestation statement: The following information was validated with the patient. Source: old records reviewed and nursing notes reviewed Medical History Anxiety Continuous auditory hallucinations Depression Suicidal ideations Surgical History No pertinent past surgical history Family History Family History Sister Fibromyalgia Maternal Aunt Fibromyalgia Family/Other Lupus Social History Social History Household Members: Other Household Members Other:: Pt lives in assisted residential facility Housing: Other Housing Other:: retirement Do you presently have visiting nurse or other home services: No Alcohol intake: never Patient Tobacco Use Status: Never used Tobacco Smoked in Last 30 Days: No e-Cigarette/Vaping Use: Never Used Second Hand Smoke Exposure: No Use of substances other than those prescribed or required for medical reasons: No Advance Directives: No Advance Directives Information Provided: Yes Patient : No service: No Sexual orientation: Did not discuss Physical Exam ED Vital Signs: Vital Signs - 24 hr 09/23/22 20:04 09/23/22 20:29 Temperature 97.9 F 98.5 F Pulse Rate 92 83 Respiratory Rate 17 16 Blood Pressure 125/58 L 130/67 Pulse Oximetry 100 99 Oxygen Delivery Method Room Air Room Air BMI result Body Mass Index 54.0 Const General: cooperative, healthy appearing, comfortable and no acute distress Orientation/consciousness: patient oriented x3 Limitations: no limitations HENMT Head: Yes normal to inspection Ears: hearing grossly normal bilaterally Eyes General: appearance normal, both eyes and all related structures Pupils: Equal, round and reactive pupils present Neck Neck: Yes normal visual inspection Chest Chest palpation & inspection: normal inspection of the chest Resp Effort & Inspection: normal respiratory effort Auscultation: clear to auscultation bilaterally Cardio Rate: regular rate Rhythm: regular rhythm Peripheral pulses: Peripheral pulses 2+ throughout GI Inspection: Yes normal to inspection Palpation (GI): Soft to palpation and nontender General: Yes no CVA tenderness Back/Spine/Pelvis Back: no CVA tenderness Thoracic/Lumbar Spine: thoracic and lumbar spine normal to inspection Skin General skin exam: no rashes or lesions noted Neuro General: patient oriented x3, moves all extremities and Unable to assess gait Cranial nerves: Yes CN's II-XII intact bilaterally, Yes Equal, round and reactive pupils present, Yes Bilaterally intact EOM present, Yes Nystagmus not present, Yes Normal facial strength present and Yes Midline tongue present Cognition (Neuro): normal cognition Gait exam (Neuro): Unable to assess gait Motor exam (neuro): 5/5 motor strength present throughout Sensory Exam: Normal double simultaneous stimulation for sensation Coordination: [id number] test normal Extrem General: Yes normal to inspection, Yes no pedal edema and Yes no calf tenderness Course Course Course Narrative: Labs are unremarkable. Unable to get additional records from [facility]. Likely medication reaction from large amount of Benadryl take in 48 hours ago. Patient can be discharged home.. She is currently residing in a respite center and so we will send her there Medical Decision Making Medical Decision Making MDM Narrative: 27-year-old female here with multiple complaints which all began after her intentional overdose 48 hours ago of 50 -50 mg tablets of Benadryl. Patient was seen at [facility] and cleared from Psychiatry Patient reports symptoms of intermittent blurry vision, dry eyes, drowsiness, restless legs with tingling in both legs On arrival vitals are stable Normal neuro exam Denies current SI or HI Will obtain labs, attempt to get records from [facility] Differential Diagnosis Differential Diagnoses: The differential diagnosis associated with the presentation includes Medication reaction Lab Data MDM Lab Attestation statement: I reviewed the patient's lab results. 09/23/22 22:05 09/23/22 22:05 Labs: Lab Results 09/23/22 09/23/22 Range/Units 22:05 22:05 WBC 9.6 (4.8-10.8) X10*3/uL RBC 4.31 (4.20-5.50) X10*6/uL Hgb 12.5 (12.0-16.0) g/dl Hct 38.4 (37.0-47.0) % MCV 89.1 (80.0-98.0) fL MCH 29.0 (27.0-33.0) pg MCHC 32.6 (31.0-35.0) g/dl RDW 12.1 (11.0-16.0) % Plt Count 330 (160-400) X10*3/uL MPV 9.6 (9.4-12.3) fL Immature Gran % (Auto) 0.3 (0.0-0.4) % Neut % (Auto) 52.0 (45-73) % Lymph % (Auto) 36.3 (20-40) % [place] % (Auto) 8.8 (2-11) % Eos % (Auto) 2.3 (0-4) % Baso % (Auto) 0.3 (0-2) % Lymph # (Auto) 3.5 (1.2-4.9) X10*3/uL [place] # (Auto) 0.9 (0.1-1.2) X10*3/uL Eos # (Auto) 0.2 (0.0-0.4) X10*3/uL Baso # (Auto) 0.0 (0.0-0.2) X10*3/uL Abs Immat Gran (auto) 0.03 (0.00-0.03) X10*3/uL Absolute Neuts (auto) 5.0 (2.0-8.3) x10*3/uL Absolute Nucleated RBC 0.000 (0.0-0.012) X10*3/uL Nucleated RBC % (auto) 0.0 (0.0-0.2) /100WBC Sodium 140 (135-145) mmol/L Potassium 4.2 (3.3-5.1) mmol/L Chloride 108 (96-108) mmol/L Carbon Dioxide 25 (22-29) mmol/L Anion Gap 11 L (12-20) BUN 16 (9-16) mg/dL Creatinine 0.83 (0.5-1.4) mg/dL Estim Creat Clear Calc 168.0 Estimated GFR > 60 Random Glucose 85 (60-115) mg/dL Calcium 9.1 (8.4-10.2) mg/dL Magnesium 2.0 (1.6-2.6) mg/dL Total Bilirubin 0.4 (0.0-1.0) mg/dL Direct Bilirubin 0.1 (0.0-0.5) mg/dL AST 14 (5-31) U/L ALT 16 (0-31) U/L Alkaline Phosphatase 83 (39-117) U/L Total Protein 6.5 (6.5-8.0) g/dL Albumin 3.7 (3.5-5.0) g/dL Salicylates < 5.0 L (15-30) mg/dL Acetaminophen < 17 (<30) mcg/mL Ethyl Alcohol < 10 mg/dL Discharge Plan Discharge Clinical Impression: Medication reaction Patient Disposition: Home, Self-Care Instructions: Medication Safety for Older Adults (ED) Additional Instructions: The symptoms are likely side effects from you taking a large amount of Benadryl 2 days ago Please follow-up with primary care doctor on Sunday for any continued symptoms Please take medications as prescribed only Prescriptions: No Action albuterol sulfate [Ventolin HFA] 90 mcg/actuation HFA aerosol inhaler 2 inh inhalation Q4H PRN (Reason: Shortness Of Breath) Advair HFA 115-21 mcg/actuation HFA aerosol inhaler 1 puff inhalation BID norgestimate-ethinyl estradiol [Tri-Estarylla] 0.18/0.215/0.25 mg-35 mcg (28) tablet 1 tab PO DAILY melatonin 5 mg tablet 5 mg PO BEDTIME aripiprazole 30 mg tablet 30 mg PO DAILY meloxicam 15 mg tablet 15 mg PO DAILY Qty: 30 3RF Referrals: Physician,Unknown J [Primary Care Provider] - Interventions: ED Discharge Assessment Last Done: 09/24/22 00:21 Discharge Date/Time: 09/24/22 00:21
[2022-09-23 23:05] LABS: Acetaminophen LAB < 17 mcg/mL (<30); Salicylate < 5.0 mg/dL (15-30)
== END 2022-09-24 00:21 | disposition home or self-care (01) ==
PROVIDERS: Nurse Practitioner Family; Emergency Provider Emergency Medicine
DX: H53.8 Other visual disturbances (principal); T45.0X2D Poisoning by antiallergic and antiemetic drugs, intentional self-harm, subsequent encounter; F41.9 Anxiety disorder, unspecified; F32.A Depression, unspecified; R45.851 Suicidal ideations; Z91.51 Personal history of suicidal behavior; Z79.899 Other long term (current) drug therapy
CPT/HCPCS: 36415; 80048; 80076; 80143; 80179; 80307; 83735; 85025; 99283; 99284

== ENCOUNTER → 2022-10-12 10:50 | Outpatient (BNVA) | payer OTHER, SELFPAY | PROVIDERS: Visit Provider Physician Assistant Surgical ==

== ENCOUNTER 2022-11-13 08:07 | Outpatient (AMB) | payer MEDICAID, SELFPAY ==
[2022-11-13 08:12] VITALS: BP 126/78; PULSE 96; TEMP 36.3; O2SAT 99; BMI 53.0
--- NOTE | 2022-11-13 08:12 | MHC.OFFVIS ---
Intake Vital Signs 11/13/22 08:12 Height 5 ft 8 in Weight 348 lb 5.286 oz BMI 53.0 BP 126/78 Blood Pressure Location Rt radial Position Sitting Pulse 96 Pulse Source Pulse Oximeter Temp 97.3 F Temp Source Skin Pulse Oximetry (%) 99 Intake Visit Reasons: polyarthralgia Intake Note: Pt seen today for follow up. Reports increased joint pain. 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 She tells me her primary doctor team ordered an HLA B27 that was positive. She then had cervical, thoracic, and lumbar spine films done. There was mild disc space narrowing at L5-S1. There is some minimal changes seen on her thoracic spine film with some endplate spurring. They did not describe any sacroiliitis. There is also some mild degenerative disease in the neck region. She continues to have pain in the spine, hands, shoulders, knees, ankles and feet. She is concerned about the positive test results. She did not have any improvement with taking daily meloxicam for her pains. There has been no iritis, skin rashes or diarrhea. Her back pain seems to get better towards the end of the day but bothers her at night as well. [facility] Medical History (Updated 11/13/22 @ 08:39 by Calderon Rivas MD) Anxiety Continuous auditory hallucinations Depression Suicidal ideations Surgical History History of esophagogastroduodenoscopy (EGD) Hx of wisdom tooth extraction No pertinent past surgical history Family History Sister Fibromyalgia Maternal Aunt Fibromyalgia Family/Other Lupus Social History Household Members: Other Household Members Other:: Pt lives in assisted residential facility Housing: Other Housing Other:: longterm Do you presently have visiting nurse or other home services: No Alcohol intake: current Alcohol intake frequency: holidays/special occasions only Patient Tobacco Use Status: Never used Tobacco e-Cigarette/Vaping Use: Never Used Second Hand Smoke Exposure: No service: No Sexual orientation: Did not discuss Review of Systems Const Details: Negative for appetite change, weight change, fever, chills, malaise and fatigue Eyes Details: Negative for vision change, dry eyes,headaches and dizziness ENT Details: Negative for hearing change, tinnitus, oral ulcer, nose bleeds and oral dryness. Card Details: Negative chest pain, edema and syncope Resp Details: Negative for SOB, cough and wheezing GI Details: Negative indigestion/heartburn, nausea, abdominal pain, bowel changes, diarrhea, constipation and bloody stool. Skin/Breast Details: Negative for itching, rash, hives, Raynaud's symptoms, sun sensitivity, and skin cancer Neuro Details: Negative for epilepsy, palsy, stroke, changes in speech, tingling and weakness Psych Details: Negative for anxiety, depression and stress Physical Exam Vital Signs: Last Vital Signs Temp 97.3 F 11/13/22 08:12 Pulse 96 11/13/22 08:12 BP 126/78 11/13/22 08:12 Pulse Ox 99 11/13/22 08:12 BMI result Body Mass Index 53.0 APPEARANCE: Patient in no acute distress EYES no redness, pupils equal and reactive to light, eyelids normal EARS: External ear normal, canal clear and tympanic membrane normal. NOSE/SINUS: Airflow through both nares, no nasal discharge, no bleeding THROAT: Oral mucosa moist, no ulcerations NECK: No thyromegaly or masses, no adenopathy, trachea midline. HEART: Regulrar rhythm, S1-S2 heard, no murmurs, rubs or gallops. LUNG: Clear to percussion and auscultation ABD: Normal bowel sounds, no organomegaly, masses or tenderness. EXTREMITIES: No edema, no calf tenderness, normal peripheral pulses. NEURO: Oriented and alert x3. No focal weakness. Reflexes symmetric. Gait normal. SKIN: No inflammatory or neoplastic lesions. Normal color and turgor JOINT EXAM: Cervical Spine:.? Full range of motion with mild discomfort at the extremes.? There is some cervical muscle the tenderness. Thoracic Spine:.? No scoliosis.? No tenderness on palpation. Lumbar Spine:.? Alignment normal.? Full range of motion with mild discomfort at full flexion.? No tenderness. Chest Wall:.? No tenderness, swelling, increased warmth or erythema. Hands:? Right:? Normal pain-free range of motion.? There is tenderness across the 1st 3 MCP joints but no swelling or triggering is appreciated.? There is no objective evidence of Raynaud's phenomena.? She has no sensory loss or thenar atrophy.? Left:? Normal pain-free range of motion with slight tenderness across the 1st 3 MCPs but no swelling is apparent.? Other joints have no tenderness, swelling, increased warmth or erythema.? There is no thenar atrophy, flexor tendon triggering, or sensory loss. Wrists:? Right: Mild pain with flexion at 60 degrees or extension at 75 degrees.? There is mild dorsal tenderness but no swelling.? There is no redness or warmth.? Left:? Mild pain with flexion extension at 60 degrees with mild tenderness without swelling, increased warmth or erythema. Elbows:. Normal pain-free range of motion without tenderness, swelling, increased warmth or erythema. Shoulders:.??Mild pain with abduction at 120 degrees or with extremes of rotation. Slight anterior tenderness without abductor weakness or adenopathy. Hips:.? Full range of motion with some lateral pains at the extremes of abduction or external rotation.? No groin pain with motion. Hip bursa:? Mild bilateral trochanteric the tenderness. Knees:?? There is some valgus deformity evident.? I do not feel any crepitus but she has some mild pain at full extension in both knees.? There is mild medial compartment tenderness without effusion, swelling, increased warmth or erythema.? Ankles: Normal pain-free range of motion with mild medial and lateral tenderness but no swelling, increased warmth or erythema. Feet:.? Normal pain-free range of motion with some slight tenderness in the MTP joints.? These joints do not look swollen.? In the toes in the instep there is no tenderness, swelling, increased warmth or erythema. Tender points:? Mild tenderness to digital palpation at the occiput, trapezius, second rib, lateral epicondyle, knees, greater trochanter area bilaterally. ? Results Reviewed Results Reviewed: Laboratory Tests 08/21/22 08/21/22 08/21/22 11:05 11:05 11:05 Hgb Plt Count ESR 16 Creatinine C-Reactive Protein 1.06 H SS-A/Ro Antibody <1.0 NEG SS-B/La Antibody <1.0 NEG Sm (Jeronimo) Antibody <1.0 NEG SM/CIVIL LABORATORY TECHNICIAN IgG Antibody <1.0 NEG Double Strand DNA Ab <1 Complement C3 167 Complement C4 36 09/23/22 09/23/22 22:05 22:05 Hgb 12.5 Plt Count 330 ESR Creatinine 0.83 C-Reactive Protein SS-A/Ro Antibody SS-B/La Antibody Sm (Jeronimo) Antibody SM/CIVIL LABORATORY TECHNICIAN IgG Antibody Double Strand DNA Ab Complement C3 Complement C4 [address] [address] XRay Report Signed Patient: Gwen Cedeño MR#: [id number] : 1995 Acct:[id number] Age/Sex: 26 / F ADM Date: 08/21/22 Loc: [facility] Attending Dr: Calderon Rivas MD Ordering Physician: Calderon Rivas MD Date of Service: 08/21/22 Procedure(s): XR hand LT min 3V Accession Number(s): [id number] cc: Calderon Rivas MD~ EXAMINATION: 1.? RADIOGRAPHS RIGHT HAND 2.? RADIOGRAPHS LEFT HAND 3.? RADIOGRAPHS RIGHT ANKLE 4.? RADIOGRAPHS LEFT ANKLE CLINICAL INFORMATION: Diffuse pain? COMPARISON: None? TECHNIQUE: 3 views of each hand and 3 views of each ankle were obtained? FINDINGS: Right hand: Visualized portion of the distal right radius and ulna demonstrate no fracture. Carpal rows are well aligned. No carpal bone fracture. No metacarpal or phalangeal fracture. No focal soft tissue swelling of the hand. No radiopaque foreign body. Left hand: Visualized portion of the distal left radius and ulna demonstrate no fracture. Carpal rows are well aligned. No carpal, metacarpal or phalangeal fracture. No appreciable degenerative changes of the left hand. No focal soft tissue swelling. No radiopaque foreign body. Right ankle: Visualized portion of the distal tibia and fibula demonstrate no fracture. Ankle mortise is maintained. No focal soft tissue swelling of the ankle. No gross ankle joint effusion. Left ankle: Visualized portion of the distal left tibia and fibula demonstrate no fracture. Ankle mortise is maintained. No focal soft tissue swelling of the left ankle. No gross ankle joint effusion. ? XR/XR hand LT min 3V IMPRESSION: 1.? Unremarkable radiographs of the bilateral hands. 2.? Unremarkable radiographs of both ankles. ? <Electronically signed by Zeferino Louis MD in [place] [facility] Result Report Patient: Gwen Cedeño Date of Service: 10/18/22 ? ? Patient Gender: Female Ordering Provider: Ernestine Chow : 1995 ? ? ? Final X-RAY EXAM OF LOWER SPINE WITH OBLIQUES Exam Date: 10/18/2022 1:39 PM Ordering Diagnosis: Other chronic back pain ? EXAM: Lumbar spine x-ray ? HISTORY: Chronic back pain. ? COMPARISON: None ? FINDINGS: ? 4 views of the lumbar spine were performed. ? 5 lumbar type vertebral bodies. Vertebral body heights are maintained. Mild disc space narrowing at L5-S1. No evidence of spondylolysis or spondylolisthesis. No prominent facet arthropathy. ? IMPRESSION IMPRESSION: ? Mild disc disease at L5-S1. ? POS - [id number] ? Reading Radiologist: [facility] Result Report Patient: Gwen Cedeño Date of Service: 10/18/22 ? ? Patient Gender: Female Ordering Provider: Ernestine Chow : 1995 ? ? ? Final X-RAY EXAM OF NECK SPINE, 4+ VIEWS Exam Date: 10/18/2022 1:40 PM Ordering Diagnosis: Other chronic back pain ? EXAM: Cervical spine x-ray ? HISTORY: Chronic neck pain. No known injury. ? COMPARISON: None ? FINDINGS: ? 4 views performed. ? Cervical spine is visualized through C7 on the lateral projection. No compression deformities. Straightening of the normal cervical lordosis. ? Minimal disc space narrowing at C5-6. No significant neural foraminal encroachment. ? Atlantoaxial distance is within normal limits. No abnormal thickening of the prevertebral soft tissues. ? IMPRESSION IMPRESSION: ? Minimal disc disease at C5-6. Straightening of the normal cervical lordosis which can be positional or secondary to muscle spasm. ? POS - [id number] ? ? Reading Radiologist: Electronically signed by: MD mirella Iglesias [facility] Result Report Patient: Gwen Cedeño Date of Service: 10/18/22 ? ? Patient Gender: Female Ordering Provider: Ernestine Chow : 1995 ? ? ? Final X-RAY EXAM OF THORACIC SPINE Exam Date: 10/18/2022 1:40 PM Ordering Diagnosis: Other chronic back pain ? EXAM: Thoracic spine x-ray ? HISTORY: Chronic thoracic back pain. ? COMPARISON: None ? FINDINGS: ? AP and lateral views performed. ? Mild dextroscoliosis of the lower spine. Vertebral body heights appear maintained. Minimal multilevel endplate spurring. Multiple levels of minimal disc space narrowing. No subluxation apparent. Pedicles appear intact. ? IMPRESSION IMPRESSION: ? Mild scoliosis and minimal degenerative changes. ? POS - [id number] ? Reading Radiologist: Electronically signed by: Juana Egan MD [facility] Result Report Patient: Gwen Cedeño Date of Service: 10/18/22 ? ? Patient Gender: Female Ordering Provider: Ernestine Chow : 1995 ? ? Assessment & Plan Assessment & Plan (1) Positive LARRY (antinuclear antibody): Comment: 2018: 1:320, homogeneous 2022: negative BRIDGET,SS-A/B,anti DNA, C3, C4 Code(s): R76.8 - Other specified abnormal immunological findings in serum (2) Fibromyalgia: Code(s): M79.7 - Fibromyalgia (3) Low back pain: Code(s): M54.50 - Low back pain, unspecified (4) HLA B27 positive: Code(s): Z15.89 - Genetic susceptibility to other disease (5) CRP elevated: Code(s): R79.82 - Elevated C-reactive protein (CRP) Plan On exam of the peripheral joints I do not see signs of an active inflammatory arthritis. She does have many tender points so this is likely some fibromyalgia. The tests for lupus were negative. I tried to reassure her about that. She is B27 positive, has nocturnal back pain, and elevated CRP. This raises the question of an HLA B27 associated spondyloarthritis. We will try to arrange for an MRI of the SI joints looking for sacroiliitis. We will get back to her with the results on that but it may take a while to get that approved. I do not see signs of other aspects of a spondyloarthropathy such as psoriasis, uveitis, or ear inflammatory bowel disease. For now we will continue with the meloxicam. A follow-up in 2 months is arranged. Orders: Orders MR pelvis wo con Today M54.50 - Low back pain, unspecified, R79.82 - Elevated C-reactive protein (CRP), Z15.89 - Genetic susceptibility to other disease Coding Level of Care Code Est Pt Level 4 (83826) Diagnoses Positive LARRY (antinuclear antibody) R76.8 Fibromyalgia M79.7 Low back pain M54.50 HLA B27 positive Z15.89 CRP elevated R79.82
== END 2022-11-13 08:44 | disposition home or self-care (01) ==
PROVIDERS: PCP Family Medicine; Visit Provider Internal Medicine Rheumatology
DX: R76.8 Other specified abnormal immunological findings in serum (principal); M79.7 Fibromyalgia; M54.50 Low back pain, unspecified; Z15.89 Genetic susceptibility to other disease; R79.82 Elevated C-reactive protein (CRP)
CPT/HCPCS: 99214

== ENCOUNTER → 2022-11-13 08:07 | Outpatient (BNVA) | payer MEDICAID, SELFPAY | PROVIDERS: PCP Family Medicine; Visit Provider Internal Medicine Rheumatology | DX: R76.8 Other specified abnormal immunological findings in serum (principal); R79.82 Elevated C-reactive protein (CRP); M79.7 Fibromyalgia; M54.50 Low back pain, unspecified; Z15.89 Genetic susceptibility to other disease | CPT/HCPCS: 99212 ==

== ENCOUNTER 2022-12-03 00:20 | Emergency (ER) | payer OTHER, SELFPAY ==
[2022-12-03 00:32] VITALS: BP 140/73; PULSE 73; RESP 18; TEMP 36.6; O2SAT 99; BMI 52.3
--- NOTE | 2022-12-03 00:39 | ED_ITS ---
HPI - Psych General Chief Complaint: Psychiatric Symptoms Stated Complaint: SI Time Seen by Provider: 12/03/22 00:28 Source: patient and EMS Mode of arrival: EMS Limitations: no limitations History of Present Illness HPI Narrative: 27-year-old female with history of depression presents with a suicide attempt. Patient attempted to hang herself. Symptoms of depression or severe. There is no clear relieving or exacerbating features. Patient was found walking from a assisted all day. She reports not having eaten for 12 hours. As far as her symptoms are concerned, there is no clear relieving or exacerbating features. The triggers unknown Related Data Home Medications Medication Instructions Recorded Confirmed albuterol sulfate 90 mcg/actuation 2 inh inhalation Q4H PRN Shortness 01/31/22 12/03/22 aerosol inhaler (Ventolin HFA) Of Breath escitalopram oxalate 10 mg tablet 10 mg PO DAILY 12/03/22 12/03/22 hydroxyzine pamoate 50 mg capsule 50 mg PO TID PRN Anxiety 12/03/22 12/03/22 melatonin 5 mg tablet 5 mg PO BEDTIME 12/03/22 12/03/22 meloxicam 15 mg tablet 15 mg PO DAILY 12/03/22 12/03/22 quetiapine 25 mg tablet 25 mg PO BEDTIME 12/03/22 12/03/22 Allergies Allergy/AdvReac Type Severity Reaction Status Date / Time tree nut Allergy Anaphylaxis Verified 11/13/22 08:19 Review of Systems Review of Systems: CONSTITUTIONAL: Denies weight loss, fever and chills. HEENT: Denies changes in vision and hearing. RESPIRATORY: Denies SOB and cough. CV: Denies palpitations no CP. GI: Denies abdominal pain, nausea, vomiting and diarrhea. : Denies dysuria and urinary frequency. MSK: Denies myalgia and joint pain. SKIN: Denies rash and pruritus. NEUROLOGICAL: Denies headache and syncope. PSYCHIATRIC: See HPI All other ROS are negative unless in HPI PMFSH Past Medical History Medical History Anxiety Continuous auditory hallucinations Depression Suicidal ideations Surgical History History of esophagogastroduodenoscopy (EGD) Hx of wisdom tooth extraction No pertinent past surgical history Family History Family History Sister Fibromyalgia Maternal Aunt Fibromyalgia Family/Other Lupus Social History Social History Household Members: Other Household Members Other:: Pt lives in assisted residential facility Housing: Other Housing Other:: assisted Do you presently have visiting nurse or other home services: No Alcohol intake: current Alcohol intake frequency: holidays/special occasions only Patient Tobacco Use Status: Never used Tobacco e-Cigarette/Vaping Use: Never Used Second Hand Smoke Exposure: No Advance Directives: No Advance Directives Information Provided: Yes service: No Sexual orientation: Did not discuss Physical Exam Vital Signs: Vital Signs: Last Vital Signs Temp 97.8 F 12/03/22 00:32 Pulse 73 12/03/22 00:32 Resp 18 12/03/22 00:32 BP 140/73 H 12/03/22 00:32 Pulse Ox 99 12/03/22 00:32 O2 Del Method Room Air 12/03/22 00:32 BMI result Body Mass Index 52.3 GEN: Well developed, no acute distress, alert, oriented HEENT: Normocephalic, atraumatic, normal external ears, nose appears normal Eyes: Normal to appearance Neck: Supple, no lymphadenopathy Respiratory: Talks in complete sentences, no respiratory distress Extremities: No clubbing cyanosis or edema Neurologic: No focal neurologic deficits, cranial nerves 2-12 intact, gait normal Skin: No rash Course Reevaluation(s) Reevaluation #1: The patient is medically cleared for behavioral health evaluation. Will place patient in observation. Time: 01:46 Reevaluation #2: Transition of care to Dr. Orlando. Time: 02:00 Medications Administered Discontinued Medications Generic Name Dose Route Start Last Admin Trade Name Freq PRN Reason Stop Dose Admin Lorazepam 2 mg 12/03/22 01:22 12/03/22 01:29 Lorazepam 1 Mg Tablet PO 12/03/22 01:23 2 mg ONCE ONE Administration Medical Decision Making Medical Decision Making MDM Narrative: 27-year-old female with history of bipolar disorder, autism coming from assisted presents with possible suicide attempt. Exam is benign. Patient will be placed for care team evaluation. She will need medical clearance. Differential diagnosis includes depression, anxiety, stress, PTSD, borderline, adjustment reaction Differential Diagnosis Differential Diagnoses: The differential diagnosis associated with the presentation includes (See above) Consult Healthcare Provider Management of the patient was discussed with: Behavioral Health Provider Lab Data MDM Lab Attestation statement: I reviewed the patient's lab results. 12/03/22 01:11 12/03/22 01:11 Labs: Lab Results 12/03/22 12/03/22 12/03/22 Range/Units 00:50 00:50 00:50 WBC (4.8-10.8) X10*3/uL RBC (4.20-5.50) X10*6/uL Hgb (12.0-16.0) g/dl Hct (37.0-47.0) % MCV (80.0-98.0) fL MCH (27.0-33.0) pg MCHC (31.0-35.0) g/dl RDW (11.0-16.0) % Plt Count (160-400) X10*3/uL MPV (9.4-12.3) fL Immature Gran % (Auto) (0.0-0.4) % Neut % (Auto) (45-73) % Lymph % (Auto) (20-40) % Person % (Auto) (2-11) % Eos % (Auto) (0-4) % Baso % (Auto) (0-2) % Lymph # (Auto) (1.2-4.9) X10*3/uL Person # (Auto) (0.1-1.2) X10*3/uL Eos # (Auto) (0.0-0.4) X10*3/uL Baso # (Auto) (0.0-0.2) X10*3/uL Abs Immat Gran (auto) (0.00-0.03) X10*3/uL Absolute Neuts (auto) (2.0-8.3) x10*3/uL Absolute Nucleated RBC (0.0-0.012) X10*3/uL Nucleated RBC % (auto) (0.0-0.2) /100WBC Sodium (135-145) mmol/L Potassium (3.3-5.1) mmol/L Chloride (96-108) mmol/L Carbon Dioxide (22-29) mmol/L Anion Gap (12-20) BUN (9-16) mg/dL Creatinine (0.5-1.4) mg/dL Estim Creat Clear Calc Estimated GFR Random Glucose (60-115) mg/dL Calcium (8.4-10.2) mg/dL Total Bilirubin (0.0-1.0) mg/dL AST (5-31) U/L ALT (0-31) U/L Alkaline Phosphatase (39-117) U/L Total Protein (6.5-8.0) g/dL Albumin (3.5-5.0) g/dL Urine Color Dark Yellow Urine Appearance Cloudy Urine pH 5.5 (5.0-9.0) Ur Specific [place] >= 1.030 H (1.005-1.025) Urine Protein 30 (1+) H (Neg-Trace) mg/dL Urine Glucose (UA) Negative (Negative) mg/dL Urine Ketones Trace (Negative) mg/dL Urine Blood Large (3+) H (Negative) Urine Nitrite Negative (Negative) Ur Leukocyte Esterase Trace H (Negative) Urine Test NEGATIVE (NEGATIVE) Urine Opiates Screen Not Detected (Not Detect) Urine Fentanyl Screen POSITIVE H (Not Detect) Ur Barbiturates Screen Not Detected (Not Detect) Ur Phencyclidine Scrn Not Detected (Not Detect) Ur Amphetamines Screen Not Detected (Not Detect) U Benzodiazepines Scrn Not Detected (Not Detect) Urine Cocaine Screen Not Detected (Not Detect) U Marijuana (THC) Screen Not Detected (Not Detect) Ethyl Alcohol mg/dL 12/03/22 12/03/22 Range/Units 01:11 01:11 WBC 8.4 (4.8-10.8) X10*3/uL RBC 4.26 (4.20-5.50) X10*6/uL Hgb 12.2 (12.0-16.0) g/dl Hct 36.8 L (37.0-47.0) % MCV 86.4 (80.0-98.0) fL MCH 28.6 (27.0-33.0) pg MCHC 33.2 (31.0-35.0) g/dl RDW 11.8 (11.0-16.0) % Plt Count 356 (160-400) X10*3/uL MPV 9.1 L (9.4-12.3) fL Immature Gran % (Auto) 0.2 (0.0-0.4) % Neut % (Auto) 65.1 (45-73) % Lymph % (Auto) 27.3 (20-40) % Person % (Auto) 5.5 (2-11) % Eos % (Auto) 1.8 (0-4) % Baso % (Auto) 0.1 (0-2) % Lymph # (Auto) 2.3 (1.2-4.9) X10*3/uL Person # (Auto) 0.5 (0.1-1.2) X10*3/uL Eos # (Auto) 0.2 (0.0-0.4) X10*3/uL Baso # (Auto) 0.0 (0.0-0.2) X10*3/uL Abs Immat Gran (auto) 0.02 (0.00-0.03) X10*3/uL Absolute Neuts (auto) 5.4 (2.0-8.3) x10*3/uL Absolute Nucleated RBC 0.000 (0.0-0.012) X10*3/uL Nucleated RBC % (auto) 0.0 (0.0-0.2) /100WBC Sodium 144 (135-145) mmol/L Potassium 3.9 (3.3-5.1) mmol/L Chloride 111 H (96-108) mmol/L Carbon Dioxide 21 L (22-29) mmol/L Anion Gap 16 (12-20) BUN 14 (9-16) mg/dL Creatinine 0.84 (0.5-1.4) mg/dL Estim Creat Clear Calc 162.8 Estimated GFR > 60 Random Glucose 99 (60-115) mg/dL Calcium 9.7 D (8.4-10.2) mg/dL Total Bilirubin 0.2 (0.0-1.0) mg/dL AST 18 (5-31) U/L ALT 17 (0-31) U/L Alkaline Phosphatase 91 (39-117) U/L Total Protein 7.2 (6.5-8.0) g/dL Albumin 4.0 (3.5-5.0) g/dL Urine Color Urine Appearance Urine pH (5.0-9.0) Ur Specific [place] (1.005-1.025) Urine Protein (Neg-Trace) mg/dL Urine Glucose (UA) (Negative) mg/dL Urine Ketones (Negative) mg/dL Urine Blood (Negative) Urine Nitrite (Negative) Ur Leukocyte Esterase (Negative) Urine Test (NEGATIVE) Urine Opiates Screen (Not Detect) Urine Fentanyl Screen (Not Detect) Ur Barbiturates Screen (Not Detect) Ur Phencyclidine Scrn (Not Detect) Ur Amphetamines Screen (Not Detect) U Benzodiazepines Scrn (Not Detect) Urine Cocaine Screen (Not Detect) U Marijuana (THC) Screen (Not Detect) Ethyl Alcohol < 10 mg/dL Independent Historian Clinical information obtained from an independent historian. History obtained from or confirmed by: EMS Discharge Plan Discharge Clinical Impression: Depression Patient Disposition: Still a Patient Prescriptions: No Action albuterol sulfate [Ventolin HFA] 90 mcg/actuation HFA aerosol inhaler 2 inh inhalation Q4H PRN (Reason: Shortness Of Breath) meloxicam 15 mg tablet 15 mg PO DAILY hydroxyzine pamoate 50 mg capsule 50 mg PO TID PRN (Reason: Anxiety) escitalopram oxalate 10 mg tablet 10 mg PO DAILY melatonin 5 mg tablet 5 mg PO BEDTIME quetiapine 25 mg tablet 25 mg PO BEDTIME
[2022-12-03 01:15] LABS: MANUAL DIFF FLAG NO
[2022-12-03 01:15] LABS: Appearance Urine Cloudy; Color Urine Dark Yellow; Glucose Urine UA Negative (Negative); Leukocyte Esterase Urine Trace (Negative); Nitrite Urine Negative (Negative); PH 5.5 (5.0-9.0); Specific Gravity - Urine >= 1.030 (1.005-1.025); UMIC TRIGGER UA YES; Urine Blood Large (3+) (Negative); Urine Ketones Trace mg/dL (Negative); Urine Protein 30 (1+) mg/dL (Neg-Trace)
[2022-12-03 01:16] LABS: UPreg QC Valid YES; Urine Pregnancy NEGATIVE (NEGATIVE)
[2022-12-03 01:18] LABS: Basophils Percent Auto 0.1 % (0-2); Eosinophils Absolute Auto 0.2 X10*3/uL (0.0-0.4); Eosinophils Percent Auto 1.8 % (0-4); Hematocrit 36.8 % (37.0-47.0); Hemoglobin 12.2 g/dl (12.0-16.0); Imm Gran Abs Auto 0.02 X10*3/uL (0.00-0.03); Imm Gran Pct Auto 0.2 % (0.0-0.4); Lymphocytes Absolute Auto 2.3 X10*3/uL (1.2-4.9); Lymphocytes Percent Auto 27.3 % (20-40); Mean Corpuscular HGB Conc 33.2 g/dl (31.0-35.0); Mean Corpuscular Hemoglobin 28.6 pg (27.0-33.0); Mean Corpuscular Volume 86.4 fL (80.0-98.0); Mean Platelet Volume 9.1 fL (9.4-12.3); Monocytes Absolute Auto 0.5 X10*3/uL (0.1-1.2); Monocytes Percent Auto 5.5 % (2-11); Neutrophils Absolute Auto 5.4 x10*3/uL (2.0-8.3); Neutrophils Percent Auto 65.1 % (45-73); Platelet Count 356 X10*3/uL (160-400); Red Blood Count 4.26 X10*6/uL (4.20-5.50); Red Cell Distribution Width 11.8 % (11.0-16.0); White Blood Count 8.4 X10*3/uL (4.8-10.8)
[2022-12-03] MEDS: LORazepam 1 MG TABLET 2 MG PO (01:29)
[2022-12-03 01:30] LABS: Alanine Aminotransferase 17 U/L (0-31); Alkaline Phosphatase 91 U/L (39-117); Anion Gap 16 (12-20); Aspartate Amino Transferase 18 U/L (5-31); Bilirubin Total 0.2 mg/dL (0.0-1.0); Blood Urea Nitrogen 14 mg/dL (9-16); Calcium 9.7 mg/dL (8.4-10.2); Carbon Dioxide 21 mmol/L (22-29); Chloride 111 mmol/L (96-108); Creatinine Clr Calc Pharmacy 162.8; Estimated Glomerular Filt Rate > 60; Ethanol < 10 mg/dL; Glucose Random 99 mg/dL (60-115); Potassium 3.9 mmol/L (3.3-5.1); Sodium 144 mmol/L (135-145); Total Protein 7.2 g/dL (6.5-8.0)
[2022-12-03 01:30] LABS: Amphetamine Screen Urine Not Detected (Not Detect); Barbiturates, Urine Not Detected (Not Detect); Benzodiazepines Screen Urine Not Detected (Not Detect); Cannabinoid Screen Urine Not Detected (Not Detect); Cocaine Screen Urine Not Detected (Not Detect); Opiate Screen Urine Not Detected (Not Detect); Phencyclidine Screen Urine Not Detected (Not Detect)
[2022-12-03 01:52] LABS: Acetaminophen LAB < 17 mcg/mL (<30); Salicylate < 5.0 mg/dL (15-30)
[2022-12-03 01:54] LABS: Bacteria Urine Trace (None Seen); Hyaline Casts Urine 0-2 /LPF (0-2); RBC Urine >20 /HPF (0-2)
--- NOTE | 2022-12-03 05:52 | PC.NURSE ---
Patient slept through the night, no distress observed/reported, Ativan 2 mg PO administered at 0129 with + effect, Med rec completed/pending provider's approval, care consult ordered/pending evaluation, VSS, behavior non concerning, will continue to monitor.
[2022-12-03 06:20] VITALS: BP 121/69; PULSE 65; RESP 16; TEMP 36.3; O2SAT 98
[2022-12-03 13:00] LABS: Fentanyl, urine SEE COMMENTS (Not Detect)
[2022-12-03] MEDS: NaPROXEN 500 MG TABLET PO (13:25)
[2022-12-03] MEDS: Escitalopram Oxalate 20 MG TABLET PO (13:26)
--- NOTE | 2022-12-03 13:44 | MHC.CARE ---
CARE team assessment completed. Pt requested CCS at [facility] only, reported that she has had a negative experiences at [facility] CCS programs in the past. [facility] crisis supervisor stripping reported that the pt would need an administrative review for admission due to a concern re: boundaries with a CCS staff, after pt somehow acquired the staff person's personal cell phone number after a recent admission. If [facility] declines pt for admission today, pt reported that she would prefer to return to her residential rather than wait in the ED for a bed. She requested that someone contact her ACCS production team leader, Hazel (pt reported that she has the number) if she will be discharging back home.
--- NOTE | 2022-12-03 14:05 | MHC.CARE ---
Tw conducted a [facility] Bed search for this patinet. [facility] [place] has beds
[2022-12-07 10:25] LABS: Norfentanyl, Ur NEGATIVE
[2022-12-22 12:26] LABS: Fentanyl, Ur NEGATIVE
== END 2022-12-03 15:01 | disposition home or self-care (01) ==
PROVIDERS: Emergency Provider Emergency Medicine
DX: F33.1 Major depressive disorder, recurrent, moderate (principal); R45.851 Suicidal ideations; Z79.899 Other long term (current) drug therapy
CPT/HCPCS: 36415; 80053; 80143; 80179; 80307; 80354; 81001; 81025; 85025; 99284; S9485

== ENCOUNTER 2022-12-12 19:35 | Outpatient (REF) | payer OTHER, SELFPAY | END 2022-12-12 19:36 | disposition home or self-care (01) | LOC: HO.MRI 19:35 | PROVIDERS: Visit Provider Internal Medicine Rheumatology | DX: Z13.89 Encounter for screening for other disorder (principal) ==

== ENCOUNTER 2023-08-02 20:39 | Inpatient (IN) | payer MEDICARE, MEDICAID, SELFPAY ==
--- NOTE | 2023-08-02 20:42 | ECG_ITS ---
Test Reason : SYNCOPE Blood Pressure : / mmHG Vent. Rate : 065 BPM Atrial Rate : 065 BPM P-R Int : 186 ms QRS Dur : 080 ms QT Int : 418 ms P-R-T Axes : 066 047 001 degrees QTc Int : 434 ms Normal sinus rhythm with sinus arrhythmia Normal ECG No significant changes when compared with the previous EKG of 31 jan 2022 Referred By: Rodrigue Thibodeaux Electronically Signed By:BETTY MENESES
[2023-08-02 20:53] VITALS: BP 120/00; PULSE 88; O2SAT 100
[2023-08-02 21:19] VITALS: BP 135/74; PULSE 92; RESP 14; TEMP 35.6; O2SAT 98; BMI 53.4
[2023-08-02 22:22] LABS: MANUAL DIFF FLAG NO
[2023-08-02 22:26] LABS: Appearance Urine Cloudy; Basophils Percent Auto 0.4 % (0-2); Color Urine Dark Yellow; Eosinophils Absolute Auto 0.2 X10*3/uL (0.0-0.4); Eosinophils Percent Auto 2.9 % (0-4); Glucose Urine UA Negative (Negative); Hematocrit 39.5 % (37.0-47.0); Imm Gran Abs Auto 0.02 X10*3/uL (0.00-0.03); Imm Gran Pct Auto 0.3 % (0.0-0.4); Leukocyte Esterase Urine Negative (Negative); Lymphocytes Absolute Auto 2.5 X10*3/uL (1.2-4.9); Lymphocytes Percent Auto 31.7 % (20-40); Mean Corpuscular HGB Conc 32.9 g/dl (31.0-35.0); Mean Corpuscular Hemoglobin 29.1 pg (27.0-33.0); Mean Corpuscular Volume 88.4 fL (80.0-98.0); Mean Platelet Volume 9.7 fL (9.4-12.3); Monocytes Absolute Auto 0.5 X10*3/uL (0.1-1.2); Monocytes Percent Auto 6.5 % (2-11); Neutrophils Absolute Auto 4.6 x10*3/uL (2.0-8.3); Neutrophils Percent Auto 58.2 % (45-73); Nitrite Urine Negative (Negative); PH 5.5 (5.0-9.0); Platelet Count 332 X10*3/uL (160-400); Red Blood Count 4.47 X10*6/uL (4.20-5.50); Red Cell Distribution Width 11.9 % (11.0-16.0); Specific Gravity - Urine >= 1.030 (1.005-1.025); Urine Blood Negative (Negative); Urine Ketones Trace mg/dL (Negative); Urine Protein Trace mg/dL (Neg-Trace); White Blood Count 7.9 X10*3/uL (4.8-10.8)
[2023-08-02 22:27] LABS: UPreg QC Valid YES; Urine Pregnancy NEGATIVE (NEGATIVE)
--- NOTE | 2023-08-02 22:30 | PC.NURSE ---
Pt calm and cooperative, T/W spoke to Pt who reports SI with plan to OD on pain medications. Pt states recently becoming homeless over as week and having family issues. Pt reports she uses a cane for her saddle anesthesia which she was seen at other hospital and a surgical consult was not done.
[2023-08-02 22:32] VITALS: BP 145/92; PULSE 77; RESP 16; TEMP 36.1; O2SAT 100
[2023-08-02 22:35] LABS: Amphetamine Screen Urine Not Detected (Not Detect); Barbiturates, Urine Not Detected (Not Detect); Benzodiazepines Screen Urine Not Detected (Not Detect); Buprenorphine Scr Not Detected (Not Detect); Cannabinoid Screen Urine Not Detected (Not Detect); Cocaine Screen Urine Not Detected (Not Detect); Fentanyl, urine Not Detected (Not Detect); Methadone Screen, Urine Not Detected (Not Detect); Opiate Screen Urine Not Detected (Not Detect); Oxycodone Screen Urine Not Detected (Not Detect); Phencyclidine Screen Urine Not Detected (Not Detect)
[2023-08-02 22:45] LABS: Alanine Aminotransferase 24 U/L (0-31); Albumin Level 4.1 g/dL (3.5-5.0); Alkaline Phosphatase 95 U/L (39-117); Anion Gap 11 (12-20); Aspartate Amino Transferase 20 U/L (5-31); Bilirubin Total 0.2 mg/dL (0.0-1.0); Blood Urea Nitrogen 11 mg/dL (9-16); Calcium 8.9 mg/dL (8.4-10.2); Carbon Dioxide 27 mmol/L (22-29); Chloride 109 mmol/L (96-108); Estimated Glomerular Filt Rate > 60; Glucose Random 114 mg/dL (60-115); Magnesium 2.1 mg/dL (1.6-2.6); Potassium 3.4 mmol/L (3.3-5.1); Sodium 144 mmol/L (135-145); Total Protein 7.2 g/dL (6.5-8.0)
[2023-08-02 22:46] LABS: HCG Quantitative < 2 mIU/mL
--- NOTE | 2023-08-02 22:48 | PC.NURSE ---
client during changeover relenquished medications (unknown white pills) that were in pcoket to security, t/w disposed of in sharps container. t/w was told patient is not current on any medication
[2023-08-02 22:49] LABS: COVID-19 Test Negative (Negative); IDNOW Serial# 6674DD1D
--- NOTE | 2023-08-02 23:01 | PC.NURSE ---
patient seems to ambulate readily and easily without walker or cane.
[2023-08-02 23:02] LABS: Troponin-I High Sensitivity < 2.7 ng/L (<3.5-17.0)
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
[2023-08-03 06:21] VITALS: BP 103/68; PULSE 73; RESP 18; TEMP 36; O2SAT 97
--- NOTE | 2023-08-03 07:15 | PC.NURSE ---
Assumed care of patient at 0645, patient appears to be sleeping, respirations even and unlabored, no apparent distress is noted. continue plan of care for CARE eval
[2023-08-03] MEDS: NaPROXEN 500 MG TABLET PO ×2 (10:31→22:48)
[2023-08-03] MEDS: methocarbamoL 750 MG TABLET PO ×2 (10:31→15:19)
--- NOTE | 2023-08-03 13:12 | MHC.CARE ---
UPDATE: Pt was declined by [facility] as they were full and [facility] does not have a bed available (they say that there will likely be a bed by 08/08). Pt also expressed worsening depressive thoughts and feels that she may not be able to keep herself safe. The current plan [facility] for safety, mood stabilization, medication review and implementation, and access to a therapeutic milieu. This disposition was discussed and agreed by DILAN Bull
[2023-08-03 17:30] VITALS: BP 108/62; PULSE 78; RESP 18; TEMP 36.6; O2SAT 98
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
[2023-08-03 20:51] VITALS: BMI 52.9
[2023-08-04 08:53] VITALS: BP 134/76; PULSE 70; RESP 18; TEMP 36.4; O2SAT 99
[2023-08-04] MEDS: methocarbamoL 750 MG TABLET PO (08:56)
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
[2023-08-04 11:14] LABS: Estimated Average Glucose 108 mg/dL; Hemoglobin A1c % 5.4 % (<6.0)
[2023-08-04 11:22] LABS: Cholesterol 138 mg/dL (<200); HDL Cholesterol 47 mg/dL (>40); LDL Cholesterol Calculated 81 mg/dL (<100); TSH reflex Free T4 0.64 uIU/mL (0.32-4.0); Triglycerides 54 mg/dL (<150)
[2023-08-04] MEDS: Cholecalciferol (Vitamin D3) 25 MCG TABLET 50 MCG PO (17:18)
[2023-08-04] MEDS: LORazepam 1 MG TABLET PO (19:58)
[2023-08-04 20:00] VITALS: BP 130/72; PULSE 82; RESP 20; TEMP 36.4; O2SAT 98
[2023-08-05 08:00] VITALS: BP 127/84; PULSE 112; RESP 20; TEMP 36.4; O2SAT 99
[2023-08-05] MEDS: Fluticasone Propionate Nasal 16 GM SPRAY 1 SPRAY NOSTRIL-B (08:31)
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
--- NOTE | 2023-08-05 15:23 | PC.NURSE ---
Pt signed a 3 day notice today Friday 08/04 that will be up on sunday
[2023-08-05 20:00] VITALS: BP 147/71; PULSE 90; TEMP 36.4; O2SAT 100
[2023-08-05] MEDS: methocarbamoL 750 MG TABLET PO (22:06)
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
[2023-08-06] MEDS: LORazepam 1 MG TABLET PO (10:08)
[2023-08-06] MEDS: Fluticasone Propionate Nasal 16 GM SPRAY 1 SPRAY NOSTRIL-B (10:10)
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
== END 2023-08-06 14:40 | disposition home or self-care (01) | DRG 885 ==
LOC: HO.ED 23:28 → HO.PM5 08-03 15:40
PROVIDERS: Physician Assistant; Admitting Provider Psychiatry & Neurology Psychiatry; Emergency Provider Emergency Medicine; PCP Family Medicine; Visit Provider Psychiatry & Neurology Psychiatry
DX: F25.9 Schizoaffective disorder, unspecified (principal); R45.851 Suicidal ideations; F60.3 Borderline personality disorder; F84.0 Autistic disorder; Z20.822 Contact with and (suspected) exposure to COVID-19; Z79.899 Other long term (current) drug therapy
CPT/HCPCS: 36415; 80053; 80061; 80307; 81003; 81025; 83036; 83735; 84443; 84484; 84702; 85025; 87635; 93005; 99285; S9485

== ENCOUNTER → 2023-08-02 20:42 | Outpatient (BNV) | payer MEDICARE, MEDICAID, SELFPAY | PROVIDERS: Emergency Provider Emergency Medicine; PCP Family Medicine; Visit Provider Internal Medicine | DX: R55 Syncope and collapse (principal) | CPT/HCPCS: 93010 ==

== ENCOUNTER → 2023-08-03 15:28 | Outpatient (BNV) | payer MEDICARE, MEDICAID, SELFPAY | PROVIDERS: Admitting Provider Psychiatry & Neurology Psychiatry; Emergency Provider Emergency Medicine; PCP Family Medicine; Visit Provider Psychiatry & Neurology Psychiatry | DX: F60.3 Borderline personality disorder (principal); F25.0 Schizoaffective disorder, bipolar type; F84.0 Autistic disorder | CPT/HCPCS: 90792; 99232; 99239 ==

== ENCOUNTER 2023-08-23 15:14 | Emergency (ER) | payer MEDICARE, MEDICAID, SELFPAY ==
[2023-08-23 15:39] VITALS: BP 156/90; PULSE 92; O2SAT 98
--- NOTE | 2023-08-23 15:39 | ED_ITS ---
HPI - Psych General Chief Complaint: Psychiatric Symptoms Stated Complaint: SI,DEPRESSION Time Seen by Provider: 08/23/23 15:39 Source: patient, EMS and RN notes reviewed Mode of arrival: EMS Limitations: no limitations History of Present Illness HPI Narrative: Patient is a 27-year-old female with history of schizoaffective disorder, fibromyalgia, borderline personality disorder, autism spectrum disorder presenting to the emergency department voluntarily with depression and suicidal ideation. She states that EMS arrived to her house because her school called in a well-being check. She feels as though she can not obtain any help by coming here but also admits to feeling overwhelmed. Reports many significant anniversaries this month. She states that she feels she is a ?waste of space? because others have told her this as well. She reports that she has tried to follow-up on all the things she is supposed to do such as seeing medical providers and psychiatrists but is not making progress. She denies any specific plan to harm herself. Denies any homicidal ideation. Denies auditory or visual hallucinations. She reports chronic back pain but denies any acute physical complaints. MD complaint: suicidal ideation and feels depressed Onset (ago): week(s) Duration: constant History of same: Yes Associated psychiatric symptoms: depression and suicidal ideation Treatments prior to arrival: none If self harm: admits thoughts of self harm Related Data Home Medications ?Medication ?Instructions ?Recorded ?Confirmed cholecalciferol (vitamin D3) 1,250 1,250 mcg PO QWEEK 08/03/23 08/23/23 mcg (50,000 unit) capsule meloxicam 15 mg tablet 15 mg PO DAILY 08/03/23 08/23/23 escitalopram oxalate 10 mg tablet 10 mg PO DAILY 08/23/23 08/23/23 pregabalin 25 mg capsule 25 mg PO TID 08/23/23 08/23/23 Previous Rx's ?Medication ?Instructions ?Recorded albuterol sulfate 90 mcg/actuation 2 puff inhalation RQ4H PRN 08/06/23 aerosol inhaler (Ventolin HFA) Shortness Of Breath 30 days #6.7 grams fluticasone propionate 50 1 spray intranasal DAILY PRN nasal 08/06/23 mcg/actuation nasal congestion 30 days #16 grams spray,suspension methocarbamol 750 mg tablet 750 mg PO TID PRN muscle spasm 30 08/06/23 days #90 tabs Allergies Allergy/AdvReac Type Severity Reaction Status Date / Time tree nut Allergy Anaphylaxis Verified 08/23/23 16:13 banana AdvReac Unknown Verified 08/23/23 16:13 Review of Systems 2 Review of Systems: As per HPI. Yes all other systems are reviewed and are negative Constitutional: Constitutional: Reports as per HPI [facility] Past Medical History Medical History (Updated 08/23/23 @ 15:56 by Sarahi Zamorano NP) Schizoaffective disorder Continuous auditory hallucinations Suicidal ideations Depression Anxiety Surgical History History of esophagogastroduodenoscopy (EGD) Hx of wisdom tooth extraction No pertinent past surgical history Family History Family History Sister Fibromyalgia Maternal Aunt Fibromyalgia Family/Other Lupus Social History Social History Household Members: None Household Members Other:: Pt lives in assisted residential facility Housing: Homeless Housing Other:: halfway Do you presently have visiting nurse or other home services: No Alcohol intake: former Comment: cane Patient Tobacco Use Status: Never used Tobacco Smoked in Last 30 Days: No e-Cigarette/Vaping Use: Never Used Second Hand Smoke Exposure: No Use of substances other than those prescribed or required for medical reasons: Yes Substance Use Type: Marijuana Substance Use Frequency: Daily Any prior treatment program specific to substance use: No Advance Directives: No Advance Directives Information Provided: No Do you have a plan to hurt others: No Plan Patient : No service: No Sexual orientation: Did not discuss Physical Exam 2 Vital Signs: Vital Signs: Last Vital Signs Temp 98.1 F 08/24/23 00:35 Pulse 75 08/24/23 00:35 Resp 18 08/24/23 00:35 BP 136/86 08/24/23 00:35 Pulse Ox 98 08/24/23 00:35 O2 Del Method Room Air 08/24/23 00:35 BMI result Body Mass Index 46.5 Const: General: cooperative, healthy appearing and no acute distress O rientation/consciousness: oriented to person, oriented to place, oriented to time and patient oriented x3 Limitations: no limitations HEENT: Head: Yes normocephalic and Yes atraumatic Ears: external ears normal General nose exam: Normal external nose present Face and sinus: Yes face symmetric Mouth: oropharynx normal and moist mucous membranes Throat: Yes uvula midline Eyes: Pupils: Equal, round and reactive pupils present Neck: Neck: Yes normal visual inspection and Yes supple Resp: Effort & Inspection: normal respiratory effort and able to speak in complete sentences Auscultation: clear to auscultation bilaterally Cardio: Rate: regular rate Rhythm: regular rhythm Heart sounds: S1 normal heart sound present and S2 normal heart sound present Skin: General skin exam: elasticity normal and turgor normal Neuro: General: oriented to person, oriented to place, oriented to time, patient oriented x3, moves all extremities, no focal motor deficits and CN's II- XI intact bilaterally Cranial nerves: Yes Equal, round and reactive pupils present Cognition (Neuro): normal cognition Extrem: General: Yes full ROM, Yes no pedal edema and Yes no calf tenderness Psych: Appearance: grossly normal Mental Status: mental status grossly normal Speech and movement: Normal speech and movement present Affect: Sad affect present Attitude: cooperative Thought process: Normal thought process present Thought content: Suicidality present, no homicidality, no hallucinations and Depressive thoughts present Insight: Limited insight present (Psych) Judgement: Limited judgement present (Psych) Course Reevaluation(s) Reevaluation #1: Patient was medically cleared, seen by the care team and deemed to require inpatient level of care. She has a section 12 bed search Time: 23:15 Medications Administered Generic Name Dose Route Start Last Admin Trade Name Freq PRN Reason Stop Dose Admin Escitalopram Oxalate 10 mg 08/24/23 09:00 08/24/23 08:07 Escitalopram Oxalate 10 Mg Tablet PO 10 mg DAILY ROC Administration Fluticasone Propionate 1 spray 08/23/23 23:12 08/24/23 08:12 Fluticasone Propionate Nasal 16 Gm [place] NOSTRIL-B 1 spray DAILY PRN Administration nasal congestion Methocarbamol 750 mg 08/23/23 23:12 08/23/23 23:29 Methocarbamol 750 Mg Tablet PO 750 mg TID PRN Administration muscle spasm Naproxen 500 mg 08/24/23 09:00 08/24/23 08:07 Naproxen 500 Mg Tablet PO 500 mg BID ROC Administration Pregabalin 25 mg 08/23/23 23:15 08/24/23 08:04 Pregabalin 25 Mg Capsule PO Not Given TID ROC Discontinued Medications Generic Name Dose Route Start Last Admin Trade Name Mary PRN Reason Stop Dose Admin Acetaminophen 975 mg 08/23/23 23:35 08/24/23 00:24 Acetaminophen 325 Mg Tablet PO 08/23/23 23:36 975 mg ONCE ONE Administration Medical Decision Making Medical Decision Making [facility] Narrative: Patient is a 27-year-old female with history of schizoaffective disorder, fibromyalgia, borderline personality disorder, autism spectrum disorder presenting to the emergency department voluntarily with depression and suicidal ideation. On exam patient is awake, A+Ox3, normal neurological exam without focal deficits, physical exam findings as above. Given reported symptoms and physical exam findings, initial differential includes schizoaffective disorder, borderline personality disorder, autism spectrum disorder, anxiety, depression, suicidal ideation. Plan: medical clearance, then CARE team evaluation Differential Diagnosis Differential Diagnoses: The differential diagnosis associated with the presentation includes As per [facility] Admission/Observation Consideration of admission/observation: Escalation of care including admission/observation considered Consult Healthcare Provider Management of the patient was discussed with: Behavioral Health Provider Lab Data 08/23/23 16:46 08/23/23 16:46 Labs: Lab Results 08/23/23 08/23/23 Range/Units 16:22 16:46 WBC 8.7 (4.8-10.8) X10*3/uL RBC 4.39 (4.20-5.50) X10*6/uL Hgb 12.8 (12.0-16.0) g/dl Hct 38.5 (37.0-47.0) % MCV 87.7 (80.0-98.0) fL MCH 29.2 (27.0-33.0) pg MCHC 33.2 (31.0-35.0) g/dl RDW 11.4 (11.0-16.0) % Plt Count 368 (160-400) X10*3/uL MPV 9.4 (9.4-12.3) fL Immature Gran % (Auto) 0.2 (0.0-0.4) % Neut % (Auto) 69.2 (45-73) % Lymph % (Auto) 24.5 (20-40) % [place] % (Auto) 4.5 (2-11) % Eos % (Auto) 1.3 (0-4) % Baso % (Auto) 0.3 (0-2) % Lymph # (Auto) 2.1 (1.2-4.9) X10*3/uL [place] # (Auto) 0.4 (0.1-1.2) X10*3/uL Eos # (Auto) 0.1 (0.0-0.4) X10*3/uL Baso # (Auto) 0.0 (0.0-0.2) X10*3/uL Abs Immat Gran (auto) 0.02 (0.00-0.03) X10*3/uL Absolute Neuts (auto) 6.0 (2.0-8.3) x10*3/uL Absolute Nucleated RBC 0.000 (0.0-0.012) X10*3/uL Nucleated RBC % (auto) 0.0 (0.0-0.2) /100WBC Sodium 140 (135-145) mmol/L Potassium 3.8 (3.3-5.1) mmol/L Chloride 105 (96-108) mmol/L Carbon Dioxide 24 (22-29) mmol/L Anion Gap 15 (12-20) BUN 16 (9-16) mg/dL Creatinine 0.69 (0.5-1.4) mg/dL Estim Creat Clear Calc 190.6 Estimated GFR > 60 Random Glucose 116 H (60-115) mg/dL Calcium 9.3 (8.4-10.2) mg/dL Total Bilirubin 0.3 (0.0-1.0) mg/dL AST 16 (5-31) U/L ALT 21 (0-31) U/L Alkaline Phosphatase 86 (39-117) U/L Total Protein 7.5 (6.5-8.0) g/dL Albumin 4.0 (3.5-5.0) g/dL Beta HCG, Quant < 2 mIU/mL Urine Color Dark Yellow Urine Appearance Cloudy Urine pH 6.5 (5.0-9.0) Ur Specific [place] >= 1.030 H (1.005-1.025) Urine Protein Trace (Neg-Trace) mg/dL Urine Glucose (UA) Negative (Negative) mg/dL Urine Ketones Trace (Negative) mg/dL Urine Blood Negative (Negative) Urine Nitrite Negative (Negative) Ur Leukocyte Esterase Negative (Negative) Urine Opiates Screen Not Detected (Not Detect) Ur Buprenorphine Scrn Not Detected (Not Detect) ng/mL Ur Oxycodone Screen Not Detected (Not Detect) ng/mL Urine Methadone Screen Not Detected (Not Detect) ng/mL Urine Fentanyl Screen Not Detected (Not Detect) Ur Barbiturates Screen Not Detected (Not Detect) Ur Phencyclidine Scrn Not Detected (Not Detect) Ur Amphetamines Screen Not Detected (Not Detect) U Benzodiazepines Scrn Not Detected (Not Detect) Urine Cocaine Screen Not Detected (Not Detect) U Marijuana (THC) Screen Not Detected (Not Detect) Ethyl Alcohol < 10 mg/dL External Record Review External record reviewed: Inpatient record, Office record and Outpatient record Discharge Plan Discharge Clinical Impression: Depression Patient Disposition: Home, Self-Care Instructions: Depression (DC) Additional Instructions: You seen emergency department for suicide ideation and depression. He was seen by the care team and had labs which deemed to be safe to go home. If you have any other concerns please return to emergency department Prescriptions: No Action escitalopram oxalate 10 mg tablet 10 mg PO DAILY pregabalin 25 mg capsule 25 mg PO TID meloxicam 15 mg Tablet 15 mg PO DAILY cholecalciferol (vitamin D3) 1,250 mcg (50,000 unit) capsule 1,250 mcg PO QWEEK albuterol sulfate [Ventolin HFA] 90 mcg/actuation Hfa Aerosol Inhaler 2 puff inhalation RQ4H PRN (Reason: Shortness Of Breath) 30 Days Qty: 6.7 0RF fluticasone propionate 50 mcg/actuation [place],Suspension 1 spray intranasal DAILY PRN (Reason: nasal congestion) 30 Days Qty: 16 0RF methocarbamol 750 mg Tablet 750 mg PO TID PRN (Reason: muscle spasm) 30 Days Qty: 90 0RF Interventions: [place]-Suicide Risk Severity Scale Last Done: 08/23/23 16:14 Print Language: Divehi ED Observation ED Observation Admit MDM: Patient seen by care team. No longer with SI well known to the care team. Has a place to stay and safe to go home. Ready for discharge at this time.
--- NOTE | 2023-08-23 16:00 | MHC.CARE ---
Check Scaler called patient [facility] Director Of Customer Acquisition [facility] [phone]. Voicemail with request for return call left.
[2023-08-23 16:11] VITALS: BP 134/84; PULSE 70; RESP 18; TEMP 36.6; O2SAT 98; BMI 46.5
[2023-08-23 16:14] VITALS: BP 134/84; PULSE 70; RESP 18; TEMP 36.2; O2SAT 98
[2023-08-23 16:31] LABS: Appearance Urine Cloudy; Color Urine Dark Yellow; Glucose Urine UA Negative (Negative); Leukocyte Esterase Urine Negative (Negative); Nitrite Urine Negative (Negative); PH 6.5 (5.0-9.0); Specific Gravity - Urine >= 1.030 (1.005-1.025); Urine Blood Negative (Negative); Urine Ketones Trace mg/dL (Negative); Urine Protein Trace mg/dL (Neg-Trace)
[2023-08-23 16:40] LABS: Amphetamine Screen Urine Not Detected (Not Detect); Barbiturates, Urine Not Detected (Not Detect); Benzodiazepines Screen Urine Not Detected (Not Detect); Buprenorphine Scr Not Detected (Not Detect); Cannabinoid Screen Urine Not Detected (Not Detect); Cocaine Screen Urine Not Detected (Not Detect); Fentanyl, urine Not Detected (Not Detect); Methadone Screen, Urine Not Detected (Not Detect); Opiate Screen Urine Not Detected (Not Detect); Oxycodone Screen Urine Not Detected (Not Detect); Phencyclidine Screen Urine Not Detected (Not Detect)
[2023-08-23 16:50] LABS: MANUAL DIFF FLAG NO
[2023-08-23 16:55] LABS: Basophils Percent Auto 0.3 % (0-2); Eosinophils Absolute Auto 0.1 X10*3/uL (0.0-0.4); Eosinophils Percent Auto 1.3 % (0-4); Hematocrit 38.5 % (37.0-47.0); Hemoglobin 12.8 g/dl (12.0-16.0); Imm Gran Abs Auto 0.02 X10*3/uL (0.00-0.03); Imm Gran Pct Auto 0.2 % (0.0-0.4); Lymphocytes Absolute Auto 2.1 X10*3/uL (1.2-4.9); Lymphocytes Percent Auto 24.5 % (20-40); Mean Corpuscular HGB Conc 33.2 g/dl (31.0-35.0); Mean Corpuscular Hemoglobin 29.2 pg (27.0-33.0); Mean Corpuscular Volume 87.7 fL (80.0-98.0); Mean Platelet Volume 9.4 fL (9.4-12.3); Monocytes Absolute Auto 0.4 X10*3/uL (0.1-1.2); Monocytes Percent Auto 4.5 % (2-11); Neutrophils Percent Auto 69.2 % (45-73); Platelet Count 368 X10*3/uL (160-400); Red Blood Count 4.39 X10*6/uL (4.20-5.50); Red Cell Distribution Width 11.4 % (11.0-16.0); White Blood Count 8.7 X10*3/uL (4.8-10.8)
[2023-08-23 17:26] LABS: Alanine Aminotransferase 21 U/L (0-31); Alkaline Phosphatase 86 U/L (39-117); Aspartate Amino Transferase 16 U/L (5-31); Bilirubin Total 0.3 mg/dL (0.0-1.0); Blood Urea Nitrogen 16 mg/dL (9-16); Calcium 9.3 mg/dL (8.4-10.2); Carbon Dioxide 24 mmol/L (22-29); Chloride 105 mmol/L (96-108); Creatinine Clr Calc Pharmacy 190.6; Estimated Glomerular Filt Rate > 60; Ethanol < 10 mg/dL; Glucose Random 116 mg/dL (60-115); Potassium 3.8 mmol/L (3.3-5.1); Sodium 140 mmol/L (135-145); Total Protein 7.5 g/dL (6.5-8.0)
[2023-08-23 17:27] LABS: Anion Gap 15 (12-20)
[2023-08-23 17:28] LABS: HCG Quantitative < 2 mIU/mL
[2023-08-23] MEDS: methocarbamoL 750 MG TABLET PO (23:29)
[2023-08-24] MEDS: Acetaminophen 325 MG TABLET 975 MG PO (00:24)
[2023-08-24 00:35] VITALS: BP 136/86; PULSE 75; RESP 18; TEMP 36.7; O2SAT 98
--- NOTE | 2023-08-24 07:13 | PC.NURSE ---
Assumed care of patient at 0645, patient ambulated to bathroom with walker with steady gait, offering no complaints to this RN, no apparent distress noted. Now back in bed laying down, respirations even and unlabored. Continue plan of care for inpt bedsearch
[2023-08-24] MEDS: NaPROXEN 500 MG TABLET PO (08:07)
[2023-08-24] MEDS: Escitalopram Oxalate 10 MG TABLET PO (08:07)
[2023-08-24] MEDS: Fluticasone Propionate Nasal 16 GM SPRAY 1 SPRAY NOSTRIL-B (08:12)
[2023-08-24 09:34] VITALS: BP 118/87; PULSE 65; RESP 16; TEMP 36.6; O2SAT 98
== END 2023-08-24 09:50 | disposition home or self-care (01) ==
PROVIDERS: Registered Nurse Emergency; Emergency Provider Emergency Medicine
DX: F33.1 Major depressive disorder, recurrent, moderate (principal); R45.851 Suicidal ideations; R10.2 Pelvic and perineal pain; M79.7 Fibromyalgia; Z79.899 Other long term (current) drug therapy; Z51.81 Encounter for therapeutic drug level monitoring
CPT/HCPCS: 80053; 80307; 81003; 84702; 85025; 99285; S9485

== ENCOUNTER 2023-09-06 17:44 | Inpatient (IN) | payer MEDICARE, MEDICAID, SELFPAY ==
[2023-09-06 17:47] VITALS: BP 150/90; PULSE 89; RESP 16; TEMP 36.3; O2SAT 97; BMI 53.9
--- NOTE | 2023-09-06 17:56 | MHC.CARE ---
Per N co-response jazmín Harding, clinician attempted to meet with pt to complete assessment in the community but pt refused to engage. She had her bags packed by the time EMS arrived and insisted on being transported to [facility].
[2023-09-06 18:00] VITALS: RESP 16
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
[2023-09-06] MEDS: LORazepam 1 MG TABLET PO (18:18)
--- NOTE | 2023-09-06 18:33 | MHC.EDTECH ---
belongings are in POD Closet
--- NOTE | 2023-09-06 18:33 | PC.NURSE ---
RE; Med rec This RN completed med rec with patient. Reviewed all meds from [facility]. Patient reports that she was supposed to start the cyclobenzaprine today but was not able to pick it up
[2023-09-06 18:59] LABS: MANUAL DIFF FLAG NO
[2023-09-06 19:01] LABS: Basophils Percent Auto 0.4 % (0-2); Eosinophils Absolute Auto 0.2 X10*3/uL (0.0-0.4); Eosinophils Percent Auto 2.5 % (0-4); Hemoglobin 11.8 g/dl (12.0-16.0); Imm Gran Abs Auto 0.02 X10*3/uL (0.00-0.03); Imm Gran Pct Auto 0.3 % (0.0-0.4); Lymphocytes Percent Auto 25.9 % (20-40); Mean Corpuscular HGB Conc 33.7 g/dl (31.0-35.0); Mean Corpuscular Hemoglobin 29.9 pg (27.0-33.0); Mean Corpuscular Volume 88.8 fL (80.0-98.0); Mean Platelet Volume 9.2 fL (9.4-12.3); Monocytes Absolute Auto 0.6 X10*3/uL (0.1-1.2); Neutrophils Percent Auto 62.9 % (45-73); Platelet Count 370 X10*3/uL (160-400); Red Blood Count 3.94 X10*6/uL (4.20-5.50); Red Cell Distribution Width 11.2 % (11.0-16.0); White Blood Count 7.9 X10*3/uL (4.8-10.8)
[2023-09-06 19:01] LABS: Appearance Urine Clear; Color Urine Yellow; Glucose Urine UA Negative (Negative); Leukocyte Esterase Urine Trace (Negative); Nitrite Urine Negative (Negative); Specific Gravity - Urine 1.025 (1.005-1.025); UMIC TRIGGER UACC YES; Urine Blood Negative (Negative); Urine Ketones Trace mg/dL (Negative); Urine Protein Negative (Neg-Trace)
[2023-09-06 19:11] LABS: Amphetamine Screen Urine Not Detected (Not Detect); Barbiturates, Urine Not Detected (Not Detect); Benzodiazepines Screen Urine Not Detected (Not Detect); Buprenorphine Scr Not Detected (Not Detect); Cannabinoid Screen Urine Not Detected (Not Detect); Cocaine Screen Urine Not Detected (Not Detect); Fentanyl, urine Not Detected (Not Detect); Methadone Screen, Urine Not Detected (Not Detect); Opiate Screen Urine Not Detected (Not Detect); Oxycodone Screen Urine Not Detected (Not Detect); Phencyclidine Screen Urine Not Detected (Not Detect)
[2023-09-06 19:15] LABS: Alanine Aminotransferase 26 U/L (0-31); Albumin Level 3.7 g/dL (3.5-5.0); Alkaline Phosphatase 93 U/L (39-117); Anion Gap 15 (12-20); Aspartate Amino Transferase 21 U/L (5-31); Bilirubin Total 0.2 mg/dL (0.0-1.0); Blood Urea Nitrogen 12 mg/dL (9-16); Calcium 9.2 mg/dL (8.4-10.2); Carbon Dioxide 23 mmol/L (22-29); Chloride 107 mmol/L (96-108); Creatinine Clr Calc Pharmacy 252.3; Estimated Glomerular Filt Rate > 60; Ethanol < 10 mg/dL; Glucose Random 90 mg/dL (60-115); Potassium 3.6 mmol/L (3.3-5.1); Sodium 141 mmol/L (135-145); Total Protein 7.1 g/dL (6.5-8.0)
[2023-09-06 19:15] LABS: Acetaminophen LAB < 3 mcg/mL (<30); Salicylate < 5.0 mg/dL (15-30)
[2023-09-06 19:29] LABS: Bacteria Urine Trace (None Seen); Hyaline Casts Urine 0-2 /LPF (0-2); RBC Urine 0-2 /HPF (0-2); WBC Urine 0-5 /HPF (0-5)
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
[2023-09-06 23:36] VITALS: BP 152/74; PULSE 85; RESP 18; TEMP 36.8; O2SAT 97
[2023-09-06] MEDS: Acetaminophen 325 MG TABLET 650 MG PO (23:48)
[2023-09-06] MEDS: Cyclobenzaprine HCl 5 MG TABLET PO (23:48)
--- NOTE | 2023-09-06 23:53 | PC.NURSE ---
Patient just woke up, mood irritable, tone loud, demanding for medication for muscle spasm, provider notified/verbally ordered Flexril 5 mg po administered as ordered with Tylenol 650 mg pending effect, care team notified that patient is up, earlier care team was not able to talk due to sedation, will continue to monitor
--- NOTE | 2023-09-07 06:25 | PC.NURSE ---
Patient slept through the night, no distress observed/reported, meds and meals compliant, care team pending evaluation, VSS, will continue to monitor
--- NOTE | 2023-09-07 07:01 | PC.NURSE ---
Assumed care of patient at 0645, patient ambulated to bathroom with steady gait with walker. Patient offering no complaints to this RN at this time. Pending care team assessment this am
[2023-09-07] MEDS: Escitalopram Oxalate 10 MG TABLET PO (09:57)
--- NOTE | 2023-09-07 11:20 | PC.NURSE ---
patient requesting Ibuprofen instead of Naproxen for an NSAID. MD Newman aware
[2023-09-07] MEDS: Ibuprofen 600 MG TABLET PO (11:40)
[2023-09-07] MEDS: LORazepam 1 MG TABLET 2 MG PO (13:56)
--- NOTE | 2023-09-07 13:57 | PC.NURSE ---
Patient increasing in agitation over last 45 minutes due to CARE team explaining that she should go to respite bed rather than inpatient. Patient upset about this decision, observed to be rocking back and forth in bed, attempting to self soothe. MD Newman aware. 2mg Ativan ordered and administered per JUN
--- NOTE | 2023-09-07 19:10 | PC.NURSE ---
patient appears to remain at rest at present respirations are even and unlabored patient appears in no distress
[2023-09-07] MEDS: NaPROXEN 500 MG TABLET PO (20:36)
[2023-09-07 20:42] VITALS: BP 143/100; PULSE 97; RESP 18; TEMP 36.2; O2SAT 98
[2023-09-07] MEDS: Acetaminophen 325 MG TABLET 650 MG PO (21:34)
[2023-09-07 22:20] VITALS: BP 139/84; PULSE 89; RESP 18; TEMP 36.4; O2SAT 96; BMI 52.8
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
[2023-09-08] MEDS: Acetaminophen 325 MG TABLET 650 MG PO ×2 (06:55→16:34)
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
[2023-09-08 08:54] VITALS: BP 143/78; PULSE 68; RESP 16; TEMP 36.6; O2SAT 99
[2023-09-08] MEDS: NaPROXEN 500 MG TABLET PO ×2 (08:56→21:47)
[2023-09-08] MEDS: Escitalopram Oxalate 10 MG TABLET PO (08:56)
[2023-09-08] MEDS: Cyclobenzaprine HCl 5 MG TABLET PO (09:16)
[2023-09-08 09:46] LABS: Alanine Aminotransferase 23 U/L (0-31); Albumin Level 3.5 g/dL (3.5-5.0); Alkaline Phosphatase 86 U/L (39-117); Anion Gap 12 (12-20); Aspartate Amino Transferase 18 U/L (5-31); Bilirubin Total 0.2 mg/dL (0.0-1.0); Blood Urea Nitrogen 10 mg/dL (9-16); Calcium 9.1 mg/dL (8.4-10.2); Carbon Dioxide 27 mmol/L (22-29); Chloride 105 mmol/L (96-108); Cholesterol 152 mg/dL (<200); Creatinine Clr Calc Pharmacy 236.6; Estimated Glomerular Filt Rate > 60; Glucose Fasting 79 mg/dL (60-99); HDL Cholesterol 41 mg/dL (>40); LDL Cholesterol Calculated 101 mg/dL (<100); Potassium 3.9 mmol/L (3.3-5.1); Sodium 140 mmol/L (135-145); Total Protein 6.9 g/dL (6.5-8.0); Triglycerides 50 mg/dL (<150)
[2023-09-08 20:00] VITALS: BP 137/85; PULSE 72; RESP 18; TEMP 36.8; O2SAT 98
[2023-09-09] MEDS: NaPROXEN 500 MG TABLET PO ×2 (08:56→20:25)
[2023-09-09] MEDS: Escitalopram Oxalate 10 MG TABLET PO (08:58)
[2023-09-09 09:00] VITALS: BP 158/80; PULSE 82; RESP 18; O2SAT 98
[2023-09-09] MEDS: LORazepam 1 MG TABLET PO (11:47)
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
[2023-09-09 20:00] VITALS: BP 133/70; PULSE 100; RESP 16; TEMP 36.3; O2SAT 98
[2023-09-09 20:26] VITALS: BP 133/70
[2023-09-09] MEDS: cloNIDine HCL 0.1 MG TABLET PO (20:26)
[2023-09-10 07:50] VITALS: BP 138/81; PULSE 88; RESP 16; TEMP 36.4; O2SAT 97
[2023-09-10] MEDS: NaPROXEN 500 MG TABLET PO ×2 (08:49→20:03)
[2023-09-10] MEDS: Escitalopram Oxalate 20 MG TABLET PO (08:50)
[2023-09-10] MEDS: Acetaminophen 325 MG TABLET 650 MG PO (09:17)
[2023-09-10 09:48] VITALS: BP 140/77
[2023-09-10] MEDS: cloNIDine HCL 0.1 MG TABLET PO ×2 (09:48→20:31)
[2023-09-10 10:02] VITALS: BP 116/69; PULSE 89; RESP 16; TEMP 36.6; O2SAT 97
--- NOTE | 2023-09-10 10:48 | HO.PSYCHPN ---
Subjective Subjective Date of Service: 09/10/23 Reason For Visit: SI Interim History: She remains anxious. Hasn't self harmed today. She says the unit is causing her anxiety because of the open space and the lighting. Says she felt better on M5. It felt contained. She was offered a weighted blanket which she agreed to. Clonidine not very helpful and she is preoccupied with anniversary of her mentor that last year from cancer. He was a teacher turned mentor. He never gave up on me one day in my life until he . Tolerating increase Lexapro. Asking to use cane so she doesn't have to use walker which hurts her wrists. Review of Systems Review of Systems Constitutional : No Weight loss, No Fever, No Chills, No Night Sweats, No Fatigue, No Malaise ENT/Mouth : No Hearing loss, No Ear Pain, No Nasal Congestion, No Sinus Pain, No Hoarseness, No sore throat, No Rhinorrhea, No Swallowing Difficulty Eyes: No Eye Pain, No Swelling, No Redness, No Foreign Body, No Discharge, No Vision Changes Cardiovascular : No Chest Pain, No SOB, No Dyspnea on Exertion, No Orthopnea, No Edema, No Palpitations Respiratory : No Cough, No Sputum, No Wheezing, No Smoke Exposure, No Dyspnea Gastrointestinal : No Nausea, No Vomiting, No Diarrhea, No Constipation, No abdominal Pain, No Hematochezia, No Melena Genitourinary : no irregular bleeding, No Dysuria, No Urinary Frequency, No Hematuria, No Urinary Incontinence, No Urgency, No Flank Pain, No Urinary Flow Changes, No Hesitancy Musculoskeletal : No joint pain, No Myalgias, No Joint Swelling Skin : No Skin Lesions, No rash Neuro : No Weakness, No Numbness, No Paresthesias, No Loss of Consciousness, No Dizziness, No Headache Psych : Complaining of anxiety, depression, suicidal ideation, no HI, feeling constantly overwhelmed, willing to overdose to end her life Heme/Lymph: No Bruising, No Bleeding,No Lymphadenopathy Endocrine : No Polyuria, No Polydipsia, No Temperature Intolerance Mental Status Exam Mental Status Exam Narrative: Pt is alert and oriented; behavior is cooperative, friendly and calm, verbose with mildly pressured speech; patient is not in distress; dressed in casual attire, with adequate hygiene; mood is described as overwhelmed and anxious and affect congruent, depressed; eye contact appropriate; Speech is verbose, mildly pressured, normal volume and prosody; no psychomotor agitation/retardation present; thought process is goal directed, circumstantial; Thought content is with flashbacks. denies any SI/HI. Patients insight and judgment impaired; possibly close to baseline Diagnostics Vital Signs (24Hr): Vital Signs - 24 hr 09/09/23 20:00 09/09/23 20:26 09/10/23 07:50 Temperature 97.4 F 97.5 F Pulse Rate 100 88 Respiratory Rate 16 16 Blood Pressure 133/70 133/70 138/81 Pulse Oximetry 98 97 Oxygen Delivery Method Room Air Room Air 09/10/23 09:48 09/10/23 10:02 Temperature 97.8 F Pulse Rate 89 Respiratory Rate 16 Blood Pressure 140/77 H 116/69 Pulse Oximetry 97 Oxygen Delivery Method Room Air BMI result Body Mass Index 52.8 Labs 09/06/23 18:52 09/08/23 08:34 Medications Medications Current Medications Acetaminophen (Acetaminophen 325 Mg Tablet) 650 mg PO Q6H PRN PRN Reason: Headache/Pain Mild Scale (1-3) Last Admin: 09/10/23 09:17 Dose: 650 mg Al Hydroxide/Mg Hydroxide (Magnesium Hydrox/Alum Hydrox 30 Ml Oral.Susp) 30 ml PO Q6H PRN PRN Reason: Heartburn/Nausea Albuterol Sulfate (Albuterol Sulfate 90 Mcg 8 Gm Inhaler) 2 puff INHALE RQ4H PRN PRN Reason: Shortness Of Breath Clonidine HCl (Clonidine Hcl 0.1 Mg Tablet) 0.1 mg PO TID PRN; Protocol PRN Reason: flashbacks Last Admin: 09/10/23 09:48 Dose: 0.1 mg Cyclobenzaprine HCl (Cyclobenzaprine Hcl 5 Mg Tablet) 5 mg PO BID PRN PRN Reason: Muscle Spasm Last Admin: 09/08/23 09:16 Dose: 5 mg Escitalopram Oxalate (Escitalopram Oxalate 20 Mg Tablet) 20 mg PO DAILY [facility] Last Admin: 09/10/23 08:50 Dose: 20 mg Fluticasone Propionate (Fluticasone Propionate Nasal 16 Gm [place]) 1 spray NOSTRIL-B DAILY PRN PRN Reason: nasal congestion Hydroxyzine HCl (Hydroxyzine Hcl 25 Mg Tablet) 25 mg PO Q6H PRN PRN Reason: Anxiety Lorazepam (Lorazepam 1 Mg Tablet) 1 mg PO Q6H PRN PRN Reason: Anxiety Last Admin: 09/09/23 11:47 Dose: 1 mg Magnesium Hydroxide (Milk Of Magnesia 30 Ml Oral.Susp) 30 ml PO DAILY PRN PRN Reason: Constipation Naproxen (Naproxen 500 Mg Tablet) 500 mg PO BID [facility] Last Admin: 09/10/23 08:49 Dose: 500 mg Trazodone HCl (Trazodone Hcl 50 Mg Tablet) 50 mg PO BEDTIME MRX1 PRN PRN Reason: Insomnia Allergies Allergies Allergy/AdvReac Type Severity Reaction Status Date / Time pineapple Allergy Intermediate Hives Verified 09/06/23 18:00 tree nut Allergy Anaphylaxis Verified 09/06/23 18:00 banana AdvReac Intermediate Hives Verified 09/06/23 18:00 Assessment & Plan Assessment & Plan (1) Borderline personality disorder: Status: Acute Code(s): F60.3 - Borderline personality disorder (2) PTSD (post-traumatic stress disorder): Status: Acute Code(s): F43.10 - Post-traumatic stress disorder, unspecified (3) Suicidal ideation: Status: Acute Code(s): R45.851 - Suicidal ideations Assessment and Plan: Patient is a 27 yo female with a long standing history of PTSD and borderline personality disorder who is known to [facility] [place] [place]. She presented with increased SI. This is one of numerous prior admissions. Last admission was on M5 in July 2023. She reports increased stressors including this month of August and September being especially difficult because of anniversaries of multiple traumatic events in her life. She reports her birthday coming up is also a trigger. Plan: - Admit to inpatient psychiatry - CV - Collateral information from family and providers. - Milieu treatment and group therapy. - Medications: Continue same pending collaterals from OP treatment team. - Social work evaluation. - Disposition planning. 09/08: Increase Lexapro 20 mg. Offer Clonidine 0.1 mg PRN PTSD. 09/09: Weighted blanket. OK to use cane. Otherwise continue current management and treatment plan. Reason for continued inpatient stay Substantial Risk for: harm to self, inability to function and rapid decompensation Time Spent With Patient Time: Total time managing care of this patient today ____ minutes.
[2023-09-10] MEDS: LORazepam 1 MG TABLET PO ×2 (11:44→20:31)
--- NOTE | 2023-09-10 12:06 | PC.NURSE ---
Patient retracted 3 day notice.
[2023-09-10 20:15] VITALS: BP 145/62; PULSE 93; RESP 18; TEMP 36.4; O2SAT 96
[2023-09-10 20:31] VITALS: BP 145/62
[2023-09-10] MEDS: Cyclobenzaprine HCl 5 MG TABLET PO (20:31)
[2023-09-11 07:05] VITALS: BP 117/58; PULSE 98; RESP 20; TEMP 36.7; O2SAT 96
[2023-09-11] MEDS: NaPROXEN 500 MG TABLET PO ×2 (08:38→20:36)
[2023-09-11] MEDS: Escitalopram Oxalate 20 MG TABLET PO (08:38)
[2023-09-11] MEDS: LORazepam 1 MG TABLET PO ×2 (08:41→20:36)
[2023-09-11 10:40] VITALS: BP 135/89
[2023-09-11] MEDS: cloNIDine HCL 0.1 MG TABLET PO ×2 (10:40→20:36)
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
[2023-09-11 20:00] VITALS: BP 134/81; PULSE 88; RESP 16; TEMP 36.6; O2SAT 96
[2023-09-11 20:36] VITALS: BP 134/89
[2023-09-11] MEDS: Fluticasone Propionate Nasal 16 GM SPRAY 1 SPRAY NOSTRIL-B (20:40)
[2023-09-12 07:35] VITALS: BP 106/50; PULSE 88; RESP 18; TEMP 36.5; O2SAT 99
[2023-09-12 08:00] VITALS: BP 106/50; PULSE 88; RESP 18; TEMP 36.5; O2SAT 99
[2023-09-12] MEDS: Escitalopram Oxalate 20 MG TABLET PO (08:42)
[2023-09-12] MEDS: NaPROXEN 500 MG TABLET PO (08:42)
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
== END 2023-09-12 17:15 | disposition home or self-care (01) | DRG 885 ==
LOC: HO.ED 09-07 09:31 → HO.PADLT16 09-07 20:34
PROVIDERS: Emergency Medicine; Admitting Provider Clinical Nurse Specialist Psychiatric/Mental Health; Emergency Provider Emergency Medicine Emergency Medical Services; Visit Provider Clinical Nurse Specialist Psychiatric/Mental Health
DX: F25.0 Schizoaffective disorder, bipolar type (principal); R45.851 Suicidal ideations; F60.3 Borderline personality disorder; F43.10 Post-traumatic stress disorder, unspecified; Z79.899 Other long term (current) drug therapy
CPT/HCPCS: 36415; 80053; 80061; 80143; 80179; 80307; 81001; 81003; 85025; 99285; S9485

== ENCOUNTER → 2023-09-07 20:20 | Outpatient (BNV) | payer MEDICARE, MEDICAID, SELFPAY | PROVIDERS: Admitting Provider Clinical Nurse Specialist Psychiatric/Mental Health; Emergency Provider Emergency Medicine Emergency Medical Services; Visit Provider Psychiatry & Neurology Psychiatry | DX: F60.3 Borderline personality disorder (principal); F25.9 Schizoaffective disorder, unspecified; F43.11 Post-traumatic stress disorder, acute; R45.851 Suicidal ideations | CPT/HCPCS: 90792; 99231; 99232; 99238; 99499 ==

== ENCOUNTER 2023-11-09 21:28 | Emergency (ER) | payer MEDICARE, MEDICAID, SELFPAY ==
[2023-11-09 21:34] VITALS: BP 148/96; PULSE 94; RESP 19; TEMP 36.1; O2SAT 96; BMI 54.1
[2023-11-09 22:38] LABS: Appearance Urine Clear; Color Urine Yellow; Glucose Urine UA Negative (Negative); Leukocyte Esterase Urine Negative (Negative); Nitrite Urine Negative (Negative); PH 5.5 (5.0-9.0); Specific Gravity - Urine >= 1.030 (1.005-1.025); UMIC TRIGGER UA YES; Urine Blood Moderate (2+) (Negative); Urine Ketones Negative (Negative); Urine Protein Negative (Neg-Trace)
[2023-11-09 22:50] LABS: Amphetamine Screen Urine Not Detected (Not Detect); Barbiturates, Urine Not Detected (Not Detect); Benzodiazepines Screen Urine Not Detected (Not Detect); Buprenorphine Scr Not Detected (Not Detect); Cannabinoid Screen Urine Not Detected (Not Detect); Cocaine Screen Urine Not Detected (Not Detect); Fentanyl, urine Not Detected (Not Detect); Methadone Screen, Urine Not Detected (Not Detect); Opiate Screen Urine Not Detected (Not Detect); Oxycodone Screen Urine Not Detected (Not Detect); Phencyclidine Screen Urine Not Detected (Not Detect)
[2023-11-09 22:56] LABS: Bacteria Urine None Seen (None Seen); Hyaline Casts Urine 0-2 /LPF (0-2); WBC Urine 0-5 /HPF (0-5)
--- NOTE | 2023-11-09 23:04 | ED_ITS ---
HPI - Psych General Chief Complaint: Psychiatric Symptoms Stated Complaint: crisis Time Seen by Provider: 11/09/23 21:54 Source: patient Mode of arrival: ambulatory Limitations: no limitations History of Present Illness ED Provider: tmeitope DELACRUZ Narrative: Patient's history of PTSD schizoaffective disorder autism homeless for last 6 months feeling hopeless as she could not get the bed in the residential does not want to spend another night on the streets feeling unsafe and hopeless [facility] asked the patient togo to the hospital patient denies SI or HI Related Data Home Medications ?Medication ?Instructions ?Recorded ?Confirmed cholecalciferol (vitamin D3) 1,250 1,250 mcg PO QWEEK 08/03/23 11/09/23 mcg (50,000 unit) capsule albuterol sulfate 90 mcg/actuation 2 puff inhalation Q4-6H PRN 11/09/23 11/09/23 aerosol inhaler (Ventolin HFA) Shortness Of Breath Or Wheezing brexpiprazole 0.5 mg tablet 0.5 mg PO QAM 11/09/23 11/09/23 (Rexulti) cetirizine 10 mg tablet 10 mg PO DAILY 11/09/23 11/09/23 diclofenac sodium 50 mg 50 mg PO BID PRN pain 11/09/23 11/09/23 tablet,delayed release docusate sodium 100 mg capsule 100 mg PO BID PRN Constipation 11/09/23 11/09/23 loperamide 2 mg capsule 2 mg PO QID PRN diarrhea 11/09/23 11/09/23 sennosides 8.6 mg tablet (senna) 8.6 mg PO DAILY 11/09/23 11/09/23 Previous Rx's ?Medication ?Instructions ?Recorded cyclobenzaprine 5 mg tablet 5 mg PO BID PRN muscle cramps/Pain 09/12/23 30 days #45 tabs escitalopram oxalate 20 mg tablet 20 mg PO DAILY 30 days #30 tabs 09/12/23 Allergies Allergy/AdvReac Type Severity Reaction Status Date / Time pineapple Allergy Intermediate Hives Verified 11/09/23 21:41 tree nut Allergy Anaphylaxis Verified 11/09/23 21:41 banana AdvReac Intermediate Hives Verified 11/09/23 21:41 Review of Systems 2 Review of Systems: Yes all other systems are reviewed and are negative PMFSH Past Medical History Medical History Schizoaffective disorder Continuous auditory hallucinations Suicidal ideations Depression Anxiety Surgical History History of esophagogastroduodenoscopy (EGD) Hx of wisdom tooth extraction No pertinent past surgical history Family History Family History Sister Fibromyalgia Maternal Aunt Fibromyalgia Family/Other Lupus Social History Social History Household Members: Family Household Members Other:: I can not go back there it's not safe Housing: Apartment Housing Other:: intermediate Do you presently have visiting nurse or other home services: No Alcohol intake: former Comment: cane Patient Tobacco Use Status: Never used Tobacco e-Cigarette/Vaping Use: Never Used Second Hand Smoke Exposure: No Substance Use Type: Marijuana Advance Directives: No Advance Directives Information Provided: No Do you have a plan to hurt others: No Plan service: No Sexual orientation: Did not discuss Physical Exam 2 Vital Signs: Vital Signs: Last Vital Signs Temp 97 F 11/09/23 21:34 Pulse 94 11/09/23 21:34 Resp 19 11/09/23 21:34 BP 148/96 H 11/09/23 21:34 Pulse Ox 96 11/09/23 21:34 BMI result Body Mass Index 54.1 Appearance: Alert. Oriented X3. No acute distress. anxious Eyes: PERRLA, No Nystagmus ENT: Pharynx normal. Oral Mucosa moist Neck: Normal inspection. Neck supple. CVS: Normal heart rate and rhythm. Pulses normal. Respiratory: No respiratory distress. Equal air entry bilateral, no wheezing/rales/rhonchi Abdomen: Soft and nontender. Bowel sounds are present, no mass palpable, no CVA tenderness Skin: Skin warm and dry. Normal skin color. Normal skin turgor. Extremities: No lower extremity edema. No calf tenderness psych: Feel depressed and hopeless denies any HI or SI Neuro: Oriented X 3. No motor deficit. Medical Decision Making Medical Decision Making MDM Narrative: Patient's depression with suicidal ideation get care team involved Lab Data MDM Lab Attestation statement: I reviewed the patient's lab results. 11/09/23 23:27 11/09/23 23:27 Labs: Lab Results 11/09/23 11/09/23 Range/Units 22:27 23:27 WBC 8.0 (4.8-10.8) X10*3/uL RBC 3.98 L (4.20-5.50) X10*6/uL Hgb 11.6 L (12.0-16.0) g/dl Hct 34.7 L (37.0-47.0) % MCV 87.2 (80.0-98.0) fL MCH 29.1 (27.0-33.0) pg MCHC 33.4 (31.0-35.0) g/dl RDW 12.0 (11.0-16.0) % Plt Count 320 (160-400) X10*3/uL MPV 9.1 L (9.4-12.3) fL Immature Gran % (Auto) 0.4 (0.0-0.4) % Neut % (Auto) 49.2 (45-73) % Lymph % (Auto) 39.4 (20-40) % [place] % (Auto) 8.5 (2-11) % Eos % (Auto) 2.1 (0-4) % Baso % (Auto) 0.4 (0-2) % Lymph # (Auto) 3.2 (1.2-4.9) X10*3/uL [place] # (Auto) 0.7 (0.1-1.2) X10*3/uL Eos # (Auto) 0.2 (0.0-0.4) X10*3/uL Baso # (Auto) 0.0 (0.0-0.2) X10*3/uL Abs Immat Gran (auto) 0.03 (0.00-0.03) X10*3/uL Absolute Neuts (auto) 3.9 (2.0-8.3) x10*3/uL Absolute Nucleated RBC 0.000 (0.0-0.012) X10*3/uL Nucleated RBC % (auto) 0.0 (0.0-0.2) /100WBC Sodium 141 (135-145) mmol/L Potassium 3.4 (3.3-5.1) mmol/L Chloride 107 (96-108) mmol/L Carbon Dioxide 25 (22-29) mmol/L Anion Gap 12 (12-20) BUN 15 (9-16) mg/dL Creatinine 0.72 (0.5-1.4) mg/dL Estim Creat Clear Calc 198.5 Estimated GFR > 60 Random Glucose 107 (60-115) mg/dL Calcium 9.2 (8.4-10.2) mg/dL Total Bilirubin 0.3 (0.0-1.0) mg/dL AST 20 (5-31) U/L ALT 26 (0-31) U/L Alkaline Phosphatase 90 (39-117) U/L Total Protein 6.9 (6.5-8.0) g/dL Albumin 3.7 (3.5-5.0) g/dL Urine Color Yellow Urine Appearance Clear Urine pH 5.5 (5.0-9.0) Ur Specific [place] >= 1.030 H (1.005-1.025) Urine Protein Negative (Neg-Trace) mg/dL Urine Glucose (UA) Negative (Negative) mg/dL Urine Ketones Negative (Negative) mg/dL Urine Blood Moderate (2+) H (Negative) Urine Nitrite Negative (Negative) Ur Leukocyte Esterase Negative (Negative) Urine RBC 3-5 H (0-2) /HPF Urine WBC 0-5 (0-5) /HPF Ur Squamous Epith Cells 3-5 (0-2) /HPF Urine Bacteria None Seen (None Seen) Hyaline Casts 0-2 (0-2) /LPF Urine Opiates Screen Not Detected (Not Detect) Ur Buprenorphine Scrn Not Detected (Not Detect) ng/mL Ur Oxycodone Screen Not Detected (Not Detect) ng/mL Urine Methadone Screen Not Detected (Not Detect) ng/mL Urine Fentanyl Screen Not Detected (Not Detect) Ur Barbiturates Screen Not Detected (Not Detect) Ur Phencyclidine Scrn Not Detected (Not Detect) Ur Amphetamines Screen Not Detected (Not Detect) U Benzodiazepines Scrn Not Detected (Not Detect) Urine Cocaine Screen Not Detected (Not Detect) U Marijuana (THC) Screen Not Detected (Not Detect) Ethyl Alcohol < 10 mg/dL Discharge Plan Discharge Clinical Impression: Depression, Feeling suicidal Patient Disposition: Still a Patient Prescriptions: No Action escitalopram oxalate 20 mg tablet 20 mg PO DAILY 30 Days Qty: 30 0RF cyclobenzaprine 5 mg tablet 5 mg PO BID PRN (Reason: muscle cramps/Pain) 30 Days Qty: 45 0RF cholecalciferol (vitamin D3) 1,250 mcg (50,000 unit) capsule 1,250 mcg PO QWEEK cetirizine 10 mg tablet 10 mg PO DAILY diclofenac sodium 50 mg tablet,delayed release (DR/EC) 50 mg PO BID PRN (Reason: pain) sennosides [senna] 8.6 mg tablet 8.6 mg PO DAILY loperamide 2 mg capsule 2 mg PO QID PRN (Reason: diarrhea) docusate sodium 100 mg capsule 100 mg PO BID PRN (Reason: Constipation) albuterol sulfate [Ventolin HFA] 90 mcg/actuation HFA aerosol inhaler 2 puff inhalation Q4-6H PRN (Reason: Shortness Of Breath Or Wheezing) Rexulti 0.5 mg tablet 0.5 mg PO QAM Print Language: Georgian
[2023-11-09 23:32] LABS: MANUAL DIFF FLAG NO
[2023-11-09 23:33] LABS: Basophils Percent Auto 0.4 % (0-2); Eosinophils Absolute Auto 0.2 X10*3/uL (0.0-0.4); Eosinophils Percent Auto 2.1 % (0-4); Hematocrit 34.7 % (37.0-47.0); Hemoglobin 11.6 g/dl (12.0-16.0); Imm Gran Abs Auto 0.03 X10*3/uL (0.00-0.03); Imm Gran Pct Auto 0.4 % (0.0-0.4); Lymphocytes Absolute Auto 3.2 X10*3/uL (1.2-4.9); Lymphocytes Percent Auto 39.4 % (20-40); Mean Corpuscular HGB Conc 33.4 g/dl (31.0-35.0); Mean Corpuscular Hemoglobin 29.1 pg (27.0-33.0); Mean Corpuscular Volume 87.2 fL (80.0-98.0); Mean Platelet Volume 9.1 fL (9.4-12.3); Monocytes Absolute Auto 0.7 X10*3/uL (0.1-1.2); Monocytes Percent Auto 8.5 % (2-11); Neutrophils Absolute Auto 3.9 x10*3/uL (2.0-8.3); Neutrophils Percent Auto 49.2 % (45-73); Platelet Count 320 X10*3/uL (160-400); Red Blood Count 3.98 X10*6/uL (4.20-5.50)
[2023-11-09 23:56] LABS: Ethanol < 10 mg/dL
[2023-11-09 23:58] LABS: Alanine Aminotransferase 26 U/L (0-31); Albumin Level 3.7 g/dL (3.5-5.0); Alkaline Phosphatase 90 U/L (39-117); Anion Gap 12 (12-20); Aspartate Amino Transferase 20 U/L (5-31); Bilirubin Total 0.3 mg/dL (0.0-1.0); Blood Urea Nitrogen 15 mg/dL (9-16); Calcium 9.2 mg/dL (8.4-10.2); Carbon Dioxide 25 mmol/L (22-29); Chloride 107 mmol/L (96-108); Creatinine Clr Calc Pharmacy 198.5; Estimated Glomerular Filt Rate > 60; Glucose Random 107 mg/dL (60-115); Potassium 3.4 mmol/L (3.3-5.1); Sodium 141 mmol/L (135-145); Total Protein 6.9 g/dL (6.5-8.0)
--- NOTE | 2023-11-10 06:01 | PC.NURSE ---
Patient slept through the night, no distress observed/reported, no behavior and safety concerns, med rec completed/confirmed by the patient/pending provider's approval, labs completed/resulted, care consult ordered/pending evaluation, VSS, will continue to monitor
[2023-11-10 06:06] VITALS: RESP 18
--- NOTE | 2023-11-10 08:13 | PC.NURSE ---
Assumed care of patient at 0645, patient appears to be sleeping, respirations even and unlabored, no apparent distress noted. continue plan of care for care team endy
[2023-11-10] MEDS: Escitalopram Oxalate 20 MG TABLET PO (10:31)
[2023-11-10] MEDS: Loratadine 10 MG TABLET PO (10:31)
[2023-11-10] MEDS: Sennosides 8.6 MG TABLET PO (10:33)
[2023-11-10] MEDS: Brexpiprazole 1 MG TABLET 0.5 MG PO (10:43)
--- NOTE | 2023-11-10 11:20 | PC.NURSE ---
Patient observed to be crying, unwilling to elaborate on why. Patient asked this RN to wash her clothes for her prior to d/c
[2023-11-10] MEDS: Diclofenac Sodium Delayed Rel 50 MG TABLET.DR PO (12:29)
--- NOTE | 2023-11-10 13:19 | MHC.CARE ---
Adult [facility] referral faxed to [facility]. T/w called and they've received the evaluation, will review assessment and call back.
--- NOTE | 2023-11-10 14:54 | MHC.CARE ---
patient declined from [facility], t/w will try [facility] for availability. Patient reports that she can never get into [facility] due to a particular staff.
--- NOTE | 2023-11-10 16:44 | MHC.CARE ---
Patient is not on a section 12. She was access earlier today by the CARE team and she appears to meet ACCS LOC however there are no available beds for her. She reports that she is working on alternate plans in case there continues to not be a respite bed available tomorrow 11/11/23. She reports belief that [facility] were going to accept her to their ACCS during a meeting she was involved in with the agency, and is feeling upset there was not one available. She will be re-seen by CARE team 11/10, though should she request to discharge this evening it seems reasonable that the request be honored and she denies any acute safety concerns: denies SI / HI and she denies perceptual disturbance and does not appear to be responding to internal stimuli.
[2023-11-11] MEDS: Cyclobenzaprine HCl 5 MG TABLET PO ×2 (03:01→19:47)
[2023-11-11] MEDS: Diclofenac Sodium Delayed Rel 50 MG TABLET.DR PO ×2 (03:01→19:47)
[2023-11-11 03:07] VITALS: BP 137/88; PULSE 90; RESP 18; TEMP 36.8; O2SAT 98
--- NOTE | 2023-11-11 06:09 | PC.NURSE ---
Patient slept through the night, no distress observed/reported, disposition per care team is voluntary Respite bed search, no behavior and safety concerns, VSS, will continue to monitor.
[2023-11-11] MEDS: Acetaminophen 325 MG TABLET 650 MG PO (08:28)
[2023-11-11] MEDS: Escitalopram Oxalate 20 MG TABLET PO (08:28)
[2023-11-11] MEDS: Loratadine 10 MG TABLET PO (08:28)
[2023-11-11] MEDS: Docusate Sodium 100 MG CAPSULE PO (08:28)
--- NOTE | 2023-11-11 08:49 | MHC.CARE ---
Spoke with [facility] and patient is on do not admit lists.
--- NOTE | 2023-11-11 09:18 | PC.NURSE ---
Patient calm and cooperative this am, offering no major concerns to this RN. Patient is reporting mild bilateral hand pain that was medicated with tylenol. Patient also reports to this RN that she is self discontinuing her Rixulti because she feels it does not help her and makes her gain weight. She reports her psychiatrist is a psychopath and just continues her medications without checking on things . this RN validated her concerns but also educated about the risks of discontinuing medications without provider oversight. Patient reports that she understands the risks and feels that she is making the right choice by discontinuing her medications.
--- NOTE | 2023-11-11 10:43 | MHC.CARE ---
Referral faxed to [facility] today 11/11/23@ 10:44 AM
--- NOTE | 2023-11-11 11:00 | PC.NURSE ---
patient reports she wants to take her Rexulti because she doesn't want to be seen as oppositional or defiant She states I don't want it seen as me self-discontinuing my medications .
[2023-11-11] MEDS: Brexpiprazole 1 MG TABLET 0.5 MG PO (11:59)
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
--- NOTE | 2023-11-11 15:56 | MHC.CARE ---
Patient seen for MSU on 11/11/[address] Eric. Strickland to [place]. Patient can discharge in AM does NOT need to be seen by the CARE team again, she was given safety plan as well as a resource book.
[2023-11-11 17:02] VITALS: RESP 16
[2023-11-11 19:46] VITALS: BP 146/68; PULSE 74; TEMP 36.1; O2SAT 95
--- NOTE | 2023-11-11 21:18 | PC.NURSE ---
this rn assumed care of pt, pt resting in stretcher, no acute distress noted. respirations even and unlabored.
--- NOTE | 2023-11-12 | PC.NURSE ---
pt given snacks per request at this time.
[2023-11-12 00:17] VITALS: BP 139/81; PULSE 88; TEMP 37.1; O2SAT 97
--- NOTE | 2023-11-12 05:38 | PC.NURSE ---
pt resting in stretcher, no acute distress noted.
--- NOTE | 2023-11-12 06:50 | PC.NURSE ---
Assumed car of patient at 0645. Patient is observed resting in their room. No distress observed and breathing is even and unlabored.
[2023-11-12] MEDS: Escitalopram Oxalate 20 MG TABLET PO (08:03)
[2023-11-12] MEDS: Brexpiprazole 1 MG TABLET 0.5 MG PO (08:03)
[2023-11-12] MEDS: Loratadine 10 MG TABLET PO (08:03)
[2023-11-12] MEDS: Diclofenac Sodium Delayed Rel 50 MG TABLET.DR PO (08:08)
[2023-11-12 08:58] VITALS: BP 139/81; PULSE 88; RESP 18; TEMP 37.1; O2SAT 97
== END 2023-11-12 10:05 | disposition home or self-care (01) ==
PROVIDERS: Emergency Provider Internal Medicine
DX: F32.A Depression, unspecified (principal); R45.851 Suicidal ideations; F43.10 Post-traumatic stress disorder, unspecified; F25.9 Schizoaffective disorder, unspecified; F60.3 Borderline personality disorder; F84.0 Autistic disorder; Z79.899 Other long term (current) drug therapy
CPT/HCPCS: 36415; 80053; 80307; 81001; 85025; 99285; S9485

== ENCOUNTER → 2023-11-09 22:06 | Outpatient (BNV) | payer MEDICARE, MEDICAID, SELFPAY | PROVIDERS: Emergency Provider Internal Medicine; Visit Provider Psychiatry & Neurology Psychiatry | DX: F60.3 Borderline personality disorder (principal); F25.9 Schizoaffective disorder, unspecified; F43.11 Post-traumatic stress disorder, acute; F84.0 Autistic disorder | CPT/HCPCS: 99282 ==

== ENCOUNTER 2024-09-14 12:49 | Emergency (ER) | payer MEDICARE, MEDICAID, SELFPAY ==
[2024-09-14 12:59] VITALS: PULSE 86; RESP 16; O2SAT 99; BMI 42.6
--- NOTE | 2024-09-14 13:25 | ED.PSYCH ---
HPI - Psych General Chief Complaint: Psychiatric Symptoms Stated Complaint: SI/SECTION 12 Time Seen by Provider: 09/14/24 12:50 Source: patient, EMS and old records reviewed Mode of arrival: EMS Limitations: no limitations History of Present Illness ED Provider: ALEJANDRA DELACRUZ Narrative: 29 yo female with PMH of schizoaffective d/o, PTSD, borderline personality disorder who comes in with c/o being at [facility] respite she was going to be discharged. It is her birthday. She notes she made off hand comments about killing her self to [facility] staff and then she was told she couldn't leave and is now in ED. She states it was a stupid joke. She wants to go home eat some ice cream and go to bed. MD complaint: feels depressed and anxiety Duration: resolved prior to arrival History of same: Yes Relieving factors: none Exacerbating factors: other Context: significant life stressor Associated psychiatric symptoms: depression Associated symptoms: denies other symptoms Treatments prior to arrival: none Related Data Home Medications ?Medication ?Instructions ?Recorded ?Confirmed cetirizine 10 mg tablet 10 mg PO DAILY 11/09/23 09/14/24 cholecalciferol (vitamin D3) 25 25 mcg PO BID 09/14/24 09/14/24 mcg (1,000 unit) capsule (Vitamin D3) clonidine HCl 0.1 mg tablet 0.1 mg PO DAILY PRN Anxiety 09/14/24 09/14/24 ibuprofen 800 mg tablet 800 mg PO BID PRN Pain 09/14/24 09/14/24 lorazepam 1 mg tablet 1 mg PO DIRECTED PRN Anxiety 09/14/24 09/14/24 olanzapine 10 mg-samidorphan 10 mg 1 tab PO BEDTIME 09/14/24 09/14/24 tablet (Lybalvi) vitamin K2 45 mcg capsule 45 mcg PO BID 09/14/24 09/14/24 Allergies Allergy/AdvReac Type Severity Reaction Status Date / Time pineapple Allergy Intermediate Hives Verified 09/14/24 13:00 tree nut Allergy Anaphylaxis Verified 09/14/24 13:00 banana AdvReac Intermediate Hives Verified 09/14/24 13:00 Review of Systems Review of Systems: Constitutional : No Fever, No Chills ENT/Mouth : No Ear Pain, No Nasal Congestion, No sore throat Eyes: No Eye Pain, No Swelling, No Redness Cardiovascular : No Chest Pain, No SOB Respiratory : No Cough, No Sputum, No Dyspnea Gastrointestinal : No Nausea, No Vomiting, No Diarrhea, No Hematochezia, No Melena Genitourinary : No Dysuria, No Urinary Frequency, No Hematuria Musculoskeletal : No Myalgias Skin : No Skin Lesions, No rash Neuro : No Weakness, No Numbness, No Paresthesias, No Dizziness, No Headache Psych : positive Anxiety, positive Depression, no SI/HI All other systems reviewed and are negative [facility] Past Medical History Attestation statement: The following information was validated with the patient. Source: old records reviewed Medical History Schizoaffective disorder Continuous auditory hallucinations Suicidal ideations Depression Anxiety Surgical History History of esophagogastroduodenoscopy (EGD) Hx of wisdom tooth extraction No pertinent past surgical history Family History Family History Sister Fibromyalgia Maternal Aunt Fibromyalgia Family/Other Lupus Social History Social History Household Members: Family Household Members Other:: I can not go back there it's not safe Housing: Apartment Housing Other:: [facility] Do you presently have visiting nurse or other home services: No Alcohol intake: former Comment: cane Patient Tobacco Use Status: Never used Tobacco Smoked in Last 30 Days: No e-Cigarette/Vaping Use: Never Used Second Hand Smoke Exposure: No Use of substances other than those prescribed or required for medical reasons: No Substance Use Type: Marijuana Advance Directives: No Advance Directives Information Provided: Yes service: No Sexual orientation: Did not discuss Physical Exam Vital Signs: Vital Signs: Last Vital Signs Temp 98.0 F 09/14/24 18:28 Pulse 78 09/14/24 18:28 Resp 16 09/14/24 18:28 BP 146/84 H 09/14/24 18:28 Pulse Ox 97 09/14/24 18:28 O2 Del Method Room Air 09/14/24 18:28 BMI result Body Mass Index 42.6 Appearance: Alert. Oriented X3. No acute distress. Eyes: Pupils equal, round and reactive to light. ENT: Pharynx normal. Neck: Normal inspection. Neck supple. CVS: Normal heart rate and rhythm. Pulses normal. Respiratory: No respiratory distress. Breath sounds normal. Abdomen: Soft and nontender. Skin: Skin warm and dry. Normal skin color. Normal skin turgor. Extremities: No lower extremity edema. Neuro: Oriented X 3. No motor deficit. No sensory deficit. CN2-12 intact Course Reevaluation(s) Reevaluation #1: 29 , bday today. SI ideation due to anniversaries. Time: 18:01 Medical Decision Making Medical Decision Making MDM Narrative: 29 yo female with PMH of schizoaffective d/o, PTSD, borderline personality disorder here with c/o making SI statements to [facility] respite staff but recants SI now and states it was a joke. At this time will labs and CARE team consult. Differential Diagnosis Differential Diagnoses: The differential diagnosis associated with the presentation includes chronic depression, PTSD Admission/Observation Consideration of admission/observation: Escalation of care including admission/observation considered physician observation started at 130pm pending CARE team Consult Healthcare Provider Management of the patient was discussed with: Behavioral Health Provider Lab Data [facility] Lab Attestation statement: I reviewed the patient's lab results. 09/14/24 13:20 09/14/24 13:20 Labs: Lab Results 09/14/24 09/14/24 Range/Units 13:20 16:05 WBC 8.2 (4.8-10.8) X10*3/uL RBC 4.64 (4.20-5.50) X10*6/uL Hgb 13.9 (12.0-16.0) g/dl Hct 40.0 (37.0-47.0) % MCV 86.2 (80.0-98.0) fL MCH 30.0 (27.0-33.0) pg MCHC 34.8 (31.0-35.0) g/dl RDW 11.8 (11.0-16.0) % Plt Count 339 (160-400) X10*3/uL MPV 9.2 L (9.4-12.3) fL Immature Gran % (Auto) 0.1 (0.0-0.4) % Neut % (Auto) 70.1 (45-73) % Lymph % (Auto) 21.7 (20-40) % [place] % (Auto) 6.4 (2-11) % Eos % (Auto) 1.5 (0-4) % Baso % (Auto) 0.2 (0-2) % Lymph # (Auto) 1.8 (1.2-4.9) X10*3/uL [place] # (Auto) 0.5 (0.1-1.2) X10*3/uL Eos # (Auto) 0.1 (0.0-0.4) X10*3/uL Baso # (Auto) 0.0 (0.0-0.2) X10*3/uL Abs Immat Gran (auto) 0.01 (0.00-0.03) X10*3/uL Absolute Neuts (auto) 5.8 (2.0-8.3) x10*3/uL Absolute Nucleated RBC 0.000 (0.0-0.012) X10*3/uL Nucleated RBC % (auto) 0.0 (0.0-0.2) /100WBC Sodium 141 (135-145) mmol/L Potassium 4.2 D (3.3-5.1) mmol/L Chloride 109 H (96-108) mmol/L Carbon Dioxide 23 (22-29) mmol/L Anion Gap 13 (12-20) BUN 12 (9-16) mg/dL Creatinine 0.66 (0.5-1.4) mg/dL Estim Creat Clear Calc 180.1 Estimated GFR > 60 Random Glucose 89 (60-115) mg/dL Calcium 9.4 (8.4-10.2) mg/dL Magnesium 1.9 (1.6-2.6) mg/dL Total Bilirubin 0.3 (0.0-1.0) mg/dL Direct Bilirubin 0.1 (0.0-0.5) mg/dL AST 34 H (5-31) U/L ALT 26 (0-31) U/L Alkaline Phosphatase 92 (39-117) U/L Total Protein 7.8 (6.5-8.0) g/dL Albumin 4.3 (3.5-5.0) g/dL Beta HCG, Quant < 2 mIU/mL Urine Color Yellow Urine Appearance Clear Urine pH 6.0 (5.0-9.0) Ur Specific [place] 1.025 (1.005-1.025) Urine Protein Negative (Neg-Trace) mg/dL Urine Glucose (UA) Negative (Negative) mg/dL Urine Ketones Negative (Negative) mg/dL Urine Blood Moderate (2+) H (Negative) Urine Nitrite Negative (Negative) Ur Leukocyte Esterase Negative (Negative) Urine RBC 0-2 (0-2) /HPF Urine WBC 0-5 (0-5) /HPF Ur Squamous Epith Cells 3-5 (0-2) /HPF Urine Bacteria 1+ (None Seen) Hyaline Casts 0-2 (0-2) /LPF Urine Opiates Screen Not Detected (Not Detect) Ur Buprenorphine Scrn Not Detected (Not Detect) ng/mL Ur Oxycodone Screen Not Detected (Not Detect) ng/mL Urine Methadone Screen Not Detected (Not Detect) ng/mL Urine Fentanyl Screen Not Detected (Not Detect) Ur Barbiturates Screen Not Detected (Not Detect) Ur Phencyclidine Scrn Not Detected (Not Detect) Ur Amphetamines Screen Not Detected (Not Detect) U Benzodiazepines Scrn Not Detected (Not Detect) Urine Cocaine Screen Not Detected (Not Detect) U Marijuana (THC) Screen Not Detected (Not Detect) Ethyl Alcohol < 10 mg/dL Independent Historian Clinical information obtained from an independent historian. History obtained from or confirmed by: EMS External Record Review External record reviewed: Inpatient record and Outpatient record Discharge Plan Discharge Clinical Impression: PTSD (post-traumatic stress disorder) Patient Disposition: Home, Self-Care Instructions: PTSD (Post Traumatic Stress Disorder) (ED) Additional Instructions: DISCHARGE DIAGNOSES: PTSD, resolved suicidal thoughts HISTORY OF PRESENTATION: ?Expression of self-harm EMERGENCY DEPARTMENT COURSE,TESTS, TREATMENTS: While in the ED today you were evaluated by our behavioral health team. We made a comprehensive plan for safety involving your family including securing the medications in your home DISCHARGE MEDICATIONS: ?[We have made no changes to your regular medication regimen] FOLLOW-UP: ?Call your primary or general physician soon as possible to discuss your symptoms, your ED visit and to discuss follow up plans Return at anytime call 911 for help for suicidal thoughts INSTRUCTIONS ?& RETURN PRECAUTIONS: If any symptoms change first call your primary physician, if it is after-hours your primary doctors office should have a provider automobile sales consultant you can speak with. If the symptoms are severe or very concerning to you then call 911 or return to the ED. Avel Correia MD Emergency Physician [facility] Prescriptions: No Action clonidine HCl 0.1 mg tablet 0.1 mg PO DAILY PRN (Reason: Anxiety) ibuprofen 800 mg tablet 800 mg PO BID PRN (Reason: Pain) lorazepam 1 mg tablet 1 mg PO DIRECTED PRN (Reason: Anxiety) Rx Instructions: take 1 tab TID PRN x3 days then BID PRN x2 days then once daily PRN Lybalvi 10-10 mg tablet 1 tab PO BEDTIME cholecalciferol (vitamin D3) [Vitamin D3] 25 mcg (1,000 unit) Capsule 25 mcg PO BID Rx Instructions: Take 1 capsule by mouth twice a day after meals vitamin K2 45 mcg Capsule 45 mcg PO BID Rx Instructions: Take 1 capsule by mouth twice a day after meals cetirizine 10 mg tablet 10 mg PO DAILY Referrals: [facility] [Provider Group] - 3 days Interventions: [place]-Suicide Risk Severity Scale Last Done: 09/14/24 13:56 ED Discharge Assessment Last Done: 09/14/24 18:28 Discharge Date/Time: 09/14/24 18:54 Print Language: Gambian
[2024-09-14 13:26] LABS: MANUAL DIFF FLAG NO
[2024-09-14 13:27] LABS: Basophils Percent Auto 0.2 % (0-2); Eosinophils Absolute Auto 0.1 X10*3/uL (0.0-0.4); Eosinophils Percent Auto 1.5 % (0-4); Hemoglobin 13.9 g/dl (12.0-16.0); Imm Gran Abs Auto 0.01 X10*3/uL (0.00-0.03); Imm Gran Pct Auto 0.1 % (0.0-0.4); Lymphocytes Absolute Auto 1.8 X10*3/uL (1.2-4.9); Lymphocytes Percent Auto 21.7 % (20-40); Mean Corpuscular HGB Conc 34.8 g/dl (31.0-35.0); Mean Corpuscular Volume 86.2 fL (80.0-98.0); Mean Platelet Volume 9.2 fL (9.4-12.3); Monocytes Absolute Auto 0.5 X10*3/uL (0.1-1.2); Monocytes Percent Auto 6.4 % (2-11); Neutrophils Absolute Auto 5.8 x10*3/uL (2.0-8.3); Neutrophils Percent Auto 70.1 % (45-73); Platelet Count 339 X10*3/uL (160-400); Red Blood Count 4.64 X10*6/uL (4.20-5.50); Red Cell Distribution Width 11.8 % (11.0-16.0); White Blood Count 8.2 X10*3/uL (4.8-10.8)
[2024-09-14 13:29] VITALS: BP 157/87; PULSE 86; RESP 18; TEMP 36.9; O2SAT 96
[2024-09-14 13:50] LABS: Alanine Aminotransferase 26 U/L (0-31); Albumin Level 4.3 g/dL (3.5-5.0); Alkaline Phosphatase 92 U/L (39-117); Anion Gap 13 (12-20); Aspartate Amino Transferase 34 U/L (5-31); Bilirubin Direct 0.1 mg/dL (0.0-0.5); Bilirubin Total 0.3 mg/dL (0.0-1.0); Blood Urea Nitrogen 12 mg/dL (9-16); Calcium 9.4 mg/dL (8.4-10.2); Carbon Dioxide 23 mmol/L (22-29); Chloride 109 mmol/L (96-108); Creatinine Clr Calc Pharmacy 180.1; Estimated Glomerular Filt Rate > 60; Ethanol < 10 mg/dL; Glucose Random 89 mg/dL (60-115); HCG Quantitative < 2 mIU/mL; Magnesium 1.9 mg/dL (1.6-2.6); Potassium 4.2 mmol/L (3.3-5.1); Sodium 141 mmol/L (135-145); Total Protein 7.8 g/dL (6.5-8.0)
[2024-09-14 13:56] VITALS: RESP 16
--- OUTSIDE RECORDS SUMMARY | 2024-09-14 14:21 | XMS_ITS ---
Author Organization [facility] Address [address] [place] [id number] Care Team Providers Care Ply Cutter Name Role Phone SUDARSHAN SALAMANCA Unavailable [phone] REASON FOR VISIT menses concern Social History Sex Assigned At : Social History Observation Description Sex Assigned At Female Encounters Encounter Location Date Provider Diagnosis [facility] [address] [place] [address] [address], [place] [id number] 11/22/2023 SUDARSHAN SALAMANCA Plan Of Treatment Next Appt Details Provider Name:LEIF ZAVALA , 09/22/2024 01:15:00 PM, [address] [place] [address], [phone], Provider Name:LEIF ZAVALA , 10/27/2024 11:00:00 AM, [address] [place] [address], [phone], Progress Notes * Ramses BROWNaDOB:1995 ([age] yo F)Acc No.[id number]:11/22/2023 Progress Notes Patient:?Davin BROWN Provider:PIERRE SALAMANCA :1995???Age:28 Y???Sex:Female D ate:11/22/2023 Address:[address] [id number] Subjective: * Chief Complaints: * ???1. Menses concern. * Medical History:? Objective: * Vitals:? Assessment: Plan: * Treatment: * Billing Information: * Visit Code:? * Procedure Codes:? * Electronic signature of LEIDA SALAMANCA CNM on 2024 at 02:20 PM EDT Sign off status: Pending * Provider:PIERRE SALAMANCA Date:?11/22/2023 Generated for Feli robles/Kristin/Evangelist on:?2024 02:20 PM EDT
--- NOTE | 2024-09-14 14:48 | PC.NURSE ---
pt reporting her airpods are missing. This RN called [facility] and spoke to programming director who stated she will go to the program later today and look for them
--- NOTE | 2024-09-14 15:43 | PC.NURSE ---
Pt appears to be sleeping, respirations are even and unlabored, no apparent distress is noted at this time
[2024-09-14 16:18] LABS: Appearance Urine Clear; Color Urine Yellow; Glucose Urine UA Negative (Negative); Leukocyte Esterase Urine Negative (Negative); Nitrite Urine Negative (Negative); Specific Gravity - Urine 1.025 (1.005-1.025); UMIC TRIGGER UACC YES; Urine Blood Moderate (2+) (Negative); Urine Ketones Negative (Negative); Urine Protein Negative (Neg-Trace)
[2024-09-14 16:28] LABS: Amphetamine Screen Urine Not Detected (Not Detect); Barbiturates, Urine Not Detected (Not Detect); Benzodiazepines Screen Urine Not Detected (Not Detect); Buprenorphine Scr Not Detected (Not Detect); Cannabinoid Screen Urine Not Detected (Not Detect); Cocaine Screen Urine Not Detected (Not Detect); Fentanyl, urine Not Detected (Not Detect); Methadone Screen, Urine Not Detected (Not Detect); Opiate Screen Urine Not Detected (Not Detect); Oxycodone Screen Urine Not Detected (Not Detect); Phencyclidine Screen Urine Not Detected (Not Detect)
[2024-09-14 16:30] LABS: Bacteria Urine 1+ (None Seen); Hyaline Casts Urine 0-2 /LPF (0-2); RBC Urine 0-2 /HPF (0-2); WBC Urine 0-5 /HPF (0-5)
--- NOTE | 2024-09-14 17:26 | PC.NURSE ---
RE: med rec This RN completed pts med rec with list from [facility] respite facility and confirming with patient Of note: Medication Vit D3 25mcg- K2 45mcg not available here. Spoke with Lorenzo, Pharmacy medication split into two meds Vitamin D3 25mcg and Vitamin K2 45 mcg
[2024-09-14 18:28] VITALS: BP 146/84; PULSE 78; RESP 16; TEMP 36.7; O2SAT 97
== END 2024-09-14 18:54 | disposition home or self-care (01) ==
PROVIDERS: Emergency Medicine; Emergency Provider Emergency Medicine; PCP Family Medicine
DX: F43.10 Post-traumatic stress disorder, unspecified (principal); Z79.899 Other long term (current) drug therapy
CPT/HCPCS: 36415; 80048; 80076; 80307; 81001; 83735; 84702; 85025; 99284; 99285; S9485

== ENCOUNTER 2025-01-02 19:02 | Emergency (ER) | payer MEDICARE, MEDICAID, SELFPAY ==
--- NOTE | 2025-01-02 | ECG_ITS ---
Test Reason : DIZZINESS Blood Pressure : */* mmHG Vent. Rate : 68 BPM Atrial Rate : 68 BPM P-R Int : 204 ms QRS Dur : 88 ms QT Int : 410 ms P-R-T Axes : 50 30 20 degrees QTcB Int : 435 ms Normal sinus rhythm Normal ECG When compared with ECG of 02-Aug-2023 23:26, No significant change was found Referred By: Generic ED Physician Electronically Signed By: BETTY MENESES
[2025-01-02 19:07] VITALS: BP 159/84; PULSE 84; O2SAT 98
[2025-01-02 19:14] VITALS: BP 127/78; PULSE 73; RESP 16; TEMP 36.8; O2SAT 99; BMI 26.1
--- OUTSIDE RECORDS SUMMARY | 2025-01-02 19:53 | XMS_ITS | Encounter Summary ---
Author Organization [facility] Address [address] [place] [phone] Phone Care Team Providers Care Director Of Catering Name Role Phone Pcp, Unknown Primary Care Provider Ernestine Sanchez MD Primary Care Pr ovider Pcp, Unknown Primary Care Provider Ernestine Sanchez MD Unavailable Ernestine Chow MD Primary Care Pr ovider Encounter Details Date Type Department Care Team (Late st Contact Info) Description 06/10/2022 Procedure Pass [facility], Ct Scan - [address] [address] Social History Tobacco Use Types Packs/Day Years Used Date Smoking Tobacco: Never Assessed Comments Unknown Sex and Gender Information Value Date Recorded Sex Assigned at Female 07/25/2023 12:56 PM EDT Legal Sex Female 10:24 PM EDT Gender Identity Not on file Sexual Orientation Not on file documented as of this encounter Functional Status * Calculated C-SSRS Risk Score (Lifetime/Recent) Answer Date of Assessment Author No Risk Indicated 06/10/2022 1:05 PM Kiki Arnold, KENNA * [place] Suicide Severity Rating Scale (Screener/Recent Self-Report) Question Answer Date of Assessment Author 1. Wish to be (Past 1 Month) No 023 1:05 PM Kiki Arnold, RN 2. Non-Specific Active Suici lola Thoughts (Past 1 Month) No 06/10/2022 1:05 PM Kiki Arnold , RN 6. Suicidal Behavior (Lifetime) No 1:05 PM Kiki Arnold RN documented as of this encounter Plan of Treatment Not on file documented as of this encounter Visit Diagnoses Not on filedocumented in this encounter Additional Health Concerns Infection Onset Date Last Indicated Resolved Time CoV-Risk 07/03/2022 07/03/2022 07/14/2022 1:22 AM EDT documented as of this encounter Care Teams Director Of Catering Relationship Specialty Start Date End Date Pcp, Unknown PCP - General 06/10/22 07/02/22 Ernestine Chow MD PCP - General Family Medicine 07/03/22 03/24/23 Pcp, Unknown PCP - General 03/25/23 11/30/23 Ernestine Chow MD PCP - General Family Medicine 12/01/23 Ernestine Chow MD Family Medicine 03/25/23 documented as of this encounter Additional Source Comments The information contained in this document represents components of the legal health record. It is not the complete legal health record.[facility]
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
--- OUTSIDE RECORDS SUMMARY | 2025-01-02 19:53 | XMS_ITS | Clinical Summary ---
Author Organization [facility] Address [address] [id number] Care Team Providers Care Mint Machine Operator Name Role Phone Ref, Has No Pcp Or Primary Care Provider Unavail able Allergies Active Allergy Reactions Criticality Noted Date Comments Cashew Nut Anaphylaxis High 01/13/2024 Pecan Nut Anaphylaxis High 01/13/2024 Pistachio Nut Anaphylaxis High 01/13/2024 Amity Anaphylaxis High 01/13/2024 Medications * This document contains information received from the source organization and may not represent a complete record from that organization. cetirizine (ZyrTEC) 10 mg tablet Take 10 mg by mouth once a day. Active diclofenac (VOLTAREN) 50 mg EC tablet Take 50 mg by mouth 2 times a day. Active escitalopram (LEXAPRO) 10 mg tablet Take 20 mg by mouth once a day. Active lamoTRIgine (LaMICtal) 25 mg tablet Take 50 mg by mouth once a day. Active LORazepam (ATIVAN) 1 mg tablet Take 1 mg by mouth 2 times a day as needed for anxiety. Active Social History Tobacco Use Types Packs/Day Years Used Date Smoking Tobacco: Never Assessed Comments Unknown Sex and Gender Information Value Date Recorded Sex Assigned at Female 01/13/2024 2:16 AM EDT Legal Sex Female 1:32 AM EDT Gender Identity Female 01/13/2024 2:16 AM EDT Sexual Orientation Not on file Last Filed Vital Signs Vital Sign Reading Time Taken Comments Blood Pressure 114/61 01/13/2024 8:38 AM EDT Pulse 62 01/13/2024 8:38 AM EDT Temperature 36.9 C (98.4 F) 01/13/2024 8:38 AM EDT Respiratory Rate 16 01/13/2024 8:38 AM EDT Oxygen Saturation 99% 01/13/2024 8:38 AM EDT Inhaled Oxygen Concentration - - Weight 166.5 kg (367 lb 0.5 oz) 01/13/2024 1:59 PM EDT Height 177.8 cm (5' 10 ) 01/13/2024 6:51 AM EDT Body Mass Index 52.66 01/13/2024 6:51 AM EDT Plan of Treatment Health Maintenance Due Date Last Done Comments HIV Screening 1997 Alcohol/Substance Use Screening 04/16/2024 COVID-19 Vaccine ( season) 2024 02/11/2021, 06/08/2020, 05/18/2020 Influenza Vaccine (#1) 2024 , 01/01/2020, 05/12/2019 DTaP,Tdap,and Td Vaccines (10 - Td or Tdap) 06/11/2033 06/11/2023, 11/07/2021, 08/03/2016, Additional history exists RSV Vaccine (60+ years old and patients) (1 - 1-dose 75+ series) 2072 Hepatitis B Vaccines Completed 07/06/1998, 1997, 1997 Varicella Vaccines Completed 11/26/2008, 09/25/1998 Pneumococcal Vaccine: Pediatric (0-5 Years) and At-Risk Patients (6-50 Years) Aged Out 04/14/2018, 10/19/2017 No longer eligibl e based on patient's age to complete this topic Insurance [facility]ICARE [facility] Care Teams Mint Machine Operator Relationship Specialty Start Date End Date Ref, Has No Pcp Or DO NOT EDIT THIS RECORD VIA PROVIDER ON THE FLY PCP - General Production Hand 01/12/24
--- OUTSIDE RECORDS SUMMARY | 2025-01-02 19:53 | XMS_ITS | Clinical Summary ---
Author Organization [facility] Address [address] [address] Phone Care Team Providers Care Vibrator Equipment Tester Name Role Phone Ernestine Chow MD Unavailable Ernestine Chow MD Primary Care Pr ovider Allergies Active Allergy Reactions Criticality Noted Date Comments Banana 03/25/2023 Tree Nuts 06/10/2022 [place] 07/24/2023 Medications perphenazine (TRILAFON) 8 MG tablet Take 8 mg by mouth 2 (two) times a day. Active fluticasone propion-salmete roL (ADVAIR DISKUS) 250-50 mcg/dose DISKUS Inhale 250 mcg/actuation of fluticasone into the lungs 2 (two) times a day. Active LORazepam (ATIVAN) 1 MG tablet Take 1 mg by mouth every 6 (six) hours as needed for anxiety. Active melatonin 3 mg Tab Take 3 mg by mouth. Active albuterol 90 mcg/actuation inhaler Inhale 2 puffs into the lungs every 6 (six) hours as needed for wheezing. Active ibuprofen (MOTRIN) 600 mg tablet (To-Go) Take 1 tablet by mouth every 6 hours as needed for pain. 12 tablet 3 Active naproxen (NAPROSYN) 500 MG tablet Take 1 tablet (500 mg total) by mouth 2 (two) times a day with meals for 10 days. 20 tablet 3 Active ARIPiprazole (ABILIFY) 30 MG tablet Take 30 mg by mouth daily. Active escitalopram oxalate (LEXAPRO) 20 MG tablet Take 20 mg by mouth daily. Active mirtazapine (REMERON) 7.5 MG tablet Take 7.5 mg by mouth nightly at bedtime. Active QUEtiapine (SEROQUEL) 25 MG tablet Take 25 mg by mouth nightly at bedtime. Active meloxicam (MOBIC) 15 MG tablet Take 15 mg by mouth daily. Active oxyCODONE 5 MG immediate release tablet Take 1 tablet (5 mg total) by mouth every 6 (six) hours as needed. Partial fill ok 10 tablet Active Social History Tobacco Use Types Packs/Day Years Used Date Smoking Tobacco: Never Assessed Education Answer Date Recorded Are you interested in more education? Not on key e 03/25/2023 Are you concerned about learning? Not on file 03/25/2023 No 03/25/2023 No 03/25/2023 Digital Access Answer Date Recorded No 03/25/2023 No 03/25/2023 Reliable internet access at home? Not on file 03/25/2023 Device with a working camera? Not on file Intimate Partner Violence Answer Date R ecorded Are you denied basic needs s uch as food, clothing, or medical care? No 12/01/2023 In the past 12 months have y ou been in a relationship with a person who hurts, threatens, or tries to control you? No 12/01/2023 Are you denied basic needs s uch as food, clothing, or medical care? No 12/01/2023 In the past 12 months have y ou been in a relationship with a person who hurts, threatens, or tries to control you? No 12/01/2023 Comments Unknown Sex and Gender Information Value Date Recorded Sex Assigned at Female 07/25/2023 12:56 PM EDT Legal Sex Female 10:24 PM EDT Gender Identity Not on file Sexual Orientation Not on file Last Filed Vital Signs Vital Sign Reading Time Taken Comments Blood Pressure 119/84 12/02/2023 10:04 AM EDT Pulse 90 12/02/2023 10:04 AM EDT Temperature 35.7 C (96.2 F) 12/02/2023 10:04 AM EDT Respiratory Rate 16 12/02/2023 10:04 AM EDT Oxygen Saturation 96% 12/02/2023 10:04 AM EDT Inhaled Oxygen Concentration - - Weight 162.8 kg (359 lb) 12/01/2023 9:25 PM EDT Height 175.3 cm (5' 9 ) 12/01/2023 9:25 PM EDT Body Mass Index 53.02 12/01/2023 9:25 PM EDT Plan of Treatment Health Maintenance Due Date Last Done Comments DEPRESSION SCREENING 2009 SMOKING Hx and SMOKELESS TOBACCO SCREENING 2010 HIV ONE-TIME SCREENING (18-6 5 YEARS) 09/15/2015 PAP SMEAR 02/20/2022 02/20/2019 INFLUENZA VACCINE (#1) 2024 01/01/2020 COVID-19 VACCINE ( - 2023-2 5 season) 2024 Adult Td,Tdap Booster 11/08/2031 11/07/2021 , 08/03/2016, 11/26/2008 PNEUMOCOCCAL VACCINES (0-49 years) Aged Out 04/14/2018 No longer eligible b ased on patient's age to complete this topic HEPATITIS C SCREENING Completed 05/18/2023 HEPATITIS A VACCINES Aged Out No long er eligible based on patient's age to complete this topic HIB VACCINES Aged Out No longer eligi ble based on patient's age to complete this topic MENINGOCOCCAL VACCINES (ACWY) Aged Out No longer eligible based on patient's age to complete this topic MENINGOCOCCAL VACCINES (B) Aged Out N o longer eligible based on patient's age to complete this topic Medical Devices Not on file [facility] & [place] MED[place] & [place] [address] [place] [address] MEDICARE PART A & B Care Teams Vibrator Equipment Tester Relationship Specialty Start Date End Date Ernestine Chow MD PCP - General Family Medicine 12/01/23 Ernestine Chow MD Family Medicine 03/25/23 Additional Source Comments The information contained in this document represents components of the legal health record. It is not the complete legal health record.[facility]
--- OUTSIDE RECORDS SUMMARY | 2025-01-02 19:53 | XMS_ITS ---
[facility] Name [facility] Results Test Name/Text Value Interpretation Date Range Source C4 SERPL MCNC 46.0 mg/dL Normal 05/18/2023 19 - 52 [facility] ESR Bld Qn Photometric 17.0 mm/h Normal 05/18/2023 0 - 20 [facility] C3 SERPL MCNC 181.0 mg/dL Normal 05/18/2023 87 - 200 [facility] CRP SERPL MCNC 1.0 mg/dL Above high normal 05/18/2023 - 0.9 [facility] LIPASE SERPL CCNC 19.0 U/L Normal 05/17/2023 11 - 82 C [facility] CREAT SERPL MCNC 0.6 mg/dL Normal 05/17/2023 0.5 - 1 [facility] BUN SERPL MCNC 9.0 mg/dL Normal 05/17/2023 7 - 17 [facility] GLUCOSE SERPL MCNC 79.0 mg/dL Normal 05/17/2023 70 - 199 [facility] POTASSIUM SERPL SCNC 4.0 mmol/L Normal 05/17/2023 3.5 - 5.1 [facility] HCO3 SER SCNC 25.0 mmol/L Normal 05/17/2023 24 - 32 [facility] CALCIUM SERPL MCNC 9.9 mg/dL Normal 05/17/2023 8.4 - 10.2 [facility] SODIUM SERPL SCNC 140.0 mmol/L Normal 05/17/2023 135 - 14 5 [facility] ANION GAP SERPL SCNC 10.0 mmol/L Normal 05/17/2023 5 - 14 [facility] CHLORIDE SERPL SC[facility] 105.0 mmol/L Normal 05/17/2023 98 - 1 07 [facility] BILIRUB DIRECT SERPL MCNC 0.1 mg/dL Normal 05/17/2023 0 - 0.2 [facility] BILIRUB SERPL MCNC 0.6 mg/dL Normal 05/17/2023 0.3 - 1 [facility] NEUTROPHILS NFR BLD AUTO 72.5 % Normal 05/17/2023 44 - 74 [facility] BASOPHILS NFR BLD AUTO 0.4 % Normal 05/17/2023 0 - 2 [facility] NEUTROPHILS NO. BLD AUTO 6.0 K/uL Normal 05/17/2023 1.8 - 7.8 [facility] PMV BLD AUTO 8.0 fL Normal 05/17/2023 7.4 - 11.4 [facility]S BJ RDW RBC AUTO RTO 14.2 % Normal 05/17/2023 12.1 - 16.2 [facility] DIFFERENTIAL TYPE AUTOMATED Normal 05/17/2023 C [facility] PLATELET NO. BLD AUTO 305.0 K/uL Normal 05/17/2023 150 - 450 [facility] LYMPHOCYTES NO. BLD AUTO 1.9 K/uL Normal 05/17/2023 1 - 3.2 [facility] MONOCYTES NFR BLD AUTO 4.2 % Normal 05/17/2023 2 - 12 [facility] EOSINOPHIL NO. BLD AUTO 0.0 K/uL Normal 05/17/2023 0 - 0.5 [facility] MCH RBC QN AUTO 29.5 pg Normal 05/17/2023 25 - 33 CTT [facility] RBC NO. BLD AUTO 4.57 M/uL Normal 05/17/2023 4.2 - 5.4 CT [facility] MCV RBC AUTO 88.2 fL Normal 05/17/2023 78 - 100 [facility] RAN LYMPHOCYTES NFR BLD AUTO 22.7 % Normal 05/17/2023 20 - 48 [facility] BASOPHILS IN BLOOD BY AUTOMATED COUNT 0.0 K/uL Normal 05/17/2023 0 - 0.2 [facility] HCT VFR BLD AUTO 40.2 % Normal 05/17/2023 37 - 47 [facility] HGB BLD MCNC 13.5 g/dL Normal 05/17/2023 12.5 - 16 [facility] RAN EOSINOPHIL NFR BLD AUTO 0.2 % Normal 05/17/2023 0 - 6 [facility] MONOCYTES NO. BLD AUTO 0.3 K/uL Normal 05/17/2023 0 - 0.8 [facility] WBC NO. BLD AUTO 8.3 K/uL Normal 05/17/2023 4 - 10.5 CT [facility] MCHC RBC AUTO MCNC 33.5 g/dL Normal 05/17/2023 32 - 36 [facility] ESR Bld Qn Photometric 52.0 mm/h Above high normal 05/17/2023 0 - 20 [facility] CRP SERPL MCNC 1.1 mg/dL Above high normal 05/17/2023 - 0.9 [facility] AMYLASE SERPL CCNC 41.0 U/L Normal 05/17/2023 29 - 103 [facility] AST SERPL CCNC 38.0 U/L Normal 05/17/2023 5 - 40 [facility] SFR[facility] ALT SERPL CCNC 28.0 U/L Normal 05/17/2023 7 - 52 [facility] ALP SERPL-CCNC 73.0 U/L Normal 05/17/2023 34 - 104 [facility] LDH SERPL L TO P CCNC 348.0 U/L Above high normal 05/17/2023 125 - 220 [facility] Prot Ur Ql Strip.auto NEGATIVE Normal 05/17/2023 - [facility] WBC number/area UrnS Auto 0.0 /HPF Normal 05/17/2023 0 - 5 [facility] Clarity Ur Refract.auto CLEAR Normal 05/17/2023 [facility] Sp Gr Ur Strip.auto <1.005 Below low normal 05/17/2023 1.005 - 1.03 [facility] Nitrite Ur Ql Strip.auto NEGATIVE Normal 05/17/2023 - [facility] Color Ur Auto STRAW Normal 05/17/2023 [facility] BJ pH Ur Strip.auto 6.0 Normal 05/17/2023 4.5 - 8 CT [facility] Squamous number/area UrnS Auto 10.0 /LFP Above high normal 05/17/2023 0 - 5 [facility] Hgb Ur Ql Strip.auto SMALL Abnormal 05/17/2023 - [facility] RBC number/area UrnS Auto <1 Normal 05/17/2023 0 - 3 [facility] Bacteria Ur Ql Auto PRESENT Abnormal 05/17/2023 - [facility] Ketones Ur Ql Strip.auto NEGATIVE Normal 05/17/2023 - [facility] Glucose Ur Ql Strip.auto NEGATIVE Normal 05/17/2023 - [facility] Leukocyte esterase Ur Ql Strip.auto NEGATIVE Normal 05/17/2023 - [facility] SPECIMEN SOURCE XXX URINE CLEAN CATCH Normal 05/17/2023 [facility] Opiates Ur Ql Scn NEGATIVE Normal 05/17/2023 - C [facility] Oxycodone Ur Ql Scn NEGATIVE Normal 05/17/2023 - [facility] Barbiturates Ur Ql Scn NEGATIVE Normal 05/17/2023 - [facility] PCP Ur Ql Scn NEGATIVE Normal 05/17/2023 - [facility] BJ Amphet Ur Ql Scn NEGATIVE Normal 05/17/2023 - CT [facility] BZE Ur Ql Scn NEGATIVE Normal 05/17/2023 - CTT BJ Cannabinoids Ur Ql Scn NEGATIVE Normal 05/17/2023 - [facility] History of Medication Use Medication Directions Dispensed Refills Start Date End Date Stat pregabalin (Lyrica) 25 MG capsule Take 1 capsule (25 mg total) by mouth 3 (three) times a day. 08/16/2023 active Misc. Devices (Walker Wheels) MISC Use as needed for walking long distances. Please make sure to establish care to physical therapy/rehab for further management. 05/27/2023 active ibuprofen 800 MG tablet Take 1 tablet (800 mg total) by mouth every 8 (eight) hours as needed for pain. 05/18/2023 08/21/2023 active methocarbamol (ROBAXIN) 750 MG tablet Take 1 tablet (750 mg total) by mouth 3 (three) times a day as needed. 04/26/2023 08/16/2023 active EPINEPHrine (EpiPen 2-Paulie) 0.3 MG/0.3ML SOAJ Inject 0.3 mL (0.3 mg total) into the muscle. 07/14/2020 active Diclofenac Sodium 1 % GEL Apply 1 g topically. active Allergies Allergen Reaction Severity Comment Documented Date Source Status WALNUT 07/24/2023 [facility] active GABAPENTIN OTHER (SEE COMMENTS) Hallucinations 04/26/2023 [facility] active BANANA EXTRACT ALLERGY SKIN TEST 03/25/2023 [facility] active TREE NUTS 06/10/2022 [facility] active NUTS OTHER (SEE COMMENTS) Mouth itchy with tongue swelling 09/20/2017 [facility] active Problems Problem Status Onset Date Problem Type Date of Resoluti on Source Chronic bilateral low back pain with left-sided sciatica active 2023-04-27 ProblemAct [facility] Bilateral hip pain active 2023-04-27 ProblemAct [facility] Encounters Encounter Type Encounter Reason Primary Diagnosis Location Date Ambulatory [facility] 01/25/2024 Emergency Other intervertebral disc degeneration, lumbar region Other intervertebral disc degeneration, lumbar region [facility] [place]16/2023 Care Team Organization Name Specialty Phone Email Start Date End Da te [facility] 12/03/2024 [facility] 08/09/2024 [facility] 05/18/2023 [facility] [place]/17/2023 [facility] 05/17/2023 [facility] [email or web address]/2022 4 [facility] 02/21/2022 4
--- OUTSIDE RECORDS SUMMARY | 2025-01-02 19:53 | XMS_ITS | Clinical Summary ---
Author Organization [facility] Address [address] [place] [address] Care Team Providers Care Recreation Therapy Director Name Role Phone Ernestine Chow MD Primary Care Pr ovider Allergies Active Allergy Reactions Criticality Noted Date Comments Banana Extract Allergy Skin Test 03/25/2023 Gabapentin Other (See Comments) Medium 04/26/2023 Hallucinations Nuts Itching,Other (See Comments) High 09/20/2017 Mouth itchy with tongue swelling Tree Nuts 06/10/2022 [place] 07/24/2023 Medications Medication Sig Dispensed Refills Start Date End Date Status Diclofenac Sodium 1 % GEL Apply 1 g topically. 0 Active EPINEPHrine (EpiPen 2-Paulie) 0.3 MG/0.3ML SOAJ Inject 0.3 mL (0.3 mg total) into the muscle. 0 07/14/2020 Active Melatonin 5 MG TABS Take 1 tablet by mouth every night at bedtime. 0 11/07/2022 Active lidocaine (LIDODERM) 5 % Place 1 patch onto the skin daily. Remove & Discard patch within 12 hours or as directed by MD 30 patch 0 05/18/2023 Active Misc. Devices (Cane) MISC Use as needed for walking. 1 each 0 05/27/2023 Active Misc. Devices (Walker Wheels) MISC Use as needed for walking long distances. Please make sure to establish care to physical therapy/rehab for further management. 1 each 0 05/27/2023 Active pregabalin (Lyrica) 25 MG capsule Take 1 capsule (25 mg total) by mouth 3 (three) times a day. 90 capsule 0 08/16/2023 Active Active Problems Problem Noted Date Diagnosed Date Bilateral hip pain 04/27/2023 Chronic bilateral low back pain with left-sided sciatica 04/27/2023 Resolved Problems Problem Noted Date Diagnosed Date Resolved Date Decreased range of motion of finger of right hand 04/27/2023 08/21/2023 Family History Medical History Relation Name Comments Hypertension Father Diabetes Mother Hypertension Mother Relation Name Status Comments Father Alive Mother Alive Social History Tobacco Use Types Packs/Day Years Used Date Smoking Tobacco: Never Smokeless Tobacco: Never Tobacco Cessation:Counseling Given: Not Answered Alcohol Use Standard Drinks/Week Comments Yes 0 (1 standard drink = 0.6 oz pur e alcohol) occasionally Sex and Gender Information Value Date Recorded Sex Assigned at Female 12/04/2022 11:10 AM EDT Gender Identity Non-Binary 05/16/2023 10:53 PM EST Sexual Orientation Not on file Job Start Date Occupation Industry Not on file Not on file Not on file Last Filed Vital Signs Vital Sign Reading Time Taken Comments Blood Pressure 130/70 08/16/2023 4:25 PM EDT Pulse 78 08/16/2023 4:25 PM EDT Temperature 36.7 C (98 F) 05/18/2023 6:50 AM EST Respiratory Rate 20 05/18/2023 6:50 AM EST Oxygen Saturation 97% 08/16/2023 4:25 PM EDT Inhaled Oxygen Concentration - - Weight 163.3 kg (360 lb) 08/16/2023 4:25 PM EDT Height 175.3 cm (5' 9 ) 08/16/2023 4:25 PM EDT Body Mass Index 53.16 08/16/2023 4:25 PM EDT Plan of Treatment Health Maintenance Due Date Last Done Comments Depression Screening 2009 BMI Counseling 09/15/2015 Preventative Health Evaluation 09/15/2015 Cervical Cancer Screening (Pap Smear) 2018 COVID-19 Vaccine ( season) 2024 02/04/2023, 02/11/2021, 06/08/2020, Additional history exists Influenza Vaccine (#1) 2024 2, 01/01/2020, 05/12/2019 DTap / Tdap / Td (10 - Td or Tdap) 11/08/2031 11/07/2021, 05/12/2019, 08/03/2016, Additional history exists Hepatitis B Vaccines Completed 01/15/1999, 07/06/1998, 04/12/1998, Additional history exists Pneumococcal Vaccine Aged Out 04/14/2018, 10/20/19 18 No longer eligible based on patient's age to complete this topic Hepatitis C Screening Completed 05/18/2023 RSV Ped < 20 months Aged Out No longe r eligible based on patient's age to complete this topic Care Teams Recreation Therapy Director Relationship Specialty Start Date End Date Ernestine Chow MD [address] [place] [address] PCP - General 05/16/23
--- OUTSIDE RECORDS SUMMARY | 2025-01-02 19:53 | XMS_ITS | Encounter Summary ---
Author Organization [facility] Address [address] [address] Phone Care Team Providers Care Principal Systems Architect Name Role Phone Pcp, Unknown Primary Care Provider Unavailabl e Ernestine Chow MD Unavailable Ernestine Chow MD Primary Care Pr ovider Encounter Details Date Type Department Care Team (Late st Contact Info) Description 07/24/2023 Procedure Pass [facility], Ct Scan - [address] [address] Social History Tobacco Use Types Packs/Day Years [...] with a working camera? Not on file Comments Unknown Sex and Gender Information Value Date Recorded Sex Assigned at Female 07/25/2023 12:56 PM EDT Legal Sex Female 10:24 PM EDT Gender Identity Not on file Sexual Orientation Not on file documented as of this encounter Functional Status * Calculated C-SSRS Risk Score (Lifetime/Recent) Answer Date of Assessment Author High Risk 07/24/2023 6:26 PM EDT Cristal Menjivar, RN * [place] Suicide Severity Rating Scale (Screener/Recent Self-Report) Question Answer Date of Assessment Author 1. Wish to be (Past 1 Month) Yes 024 6:26 PM EDT Cristal Menjivar RN 2. Non-Specific Active Suici lola Thoughts (Past 1 Month) Yes 07/24/2023 6:26 PM EDT Lee Menjivar RN 3. Active Suicidal Ideation with any Methods (Not Plan) Without Intent to Act (Past 1 Month) No 07/24/2023 6:26 PM EDT Cristal Menjivar RN 4. Active Suicidal Ideation with Some Intent to Act, Without Specific Plan (Past 1 Month) No 07/24/2023 6:26 PM EDT Cristal Menjivar RN 5. Active Suicidal Ideation with Specific Plan and Intent (Past 1 Month) No 07/24/2023 6:26 PM EDT Cristal Menjivar RN 6. Suicidal Behavior (Lifetime) Yes 4 6:26 PM EDT Cristal Menjivar RN 6. Suicidal Behavior (3 Months) Yes 4 6:26 PM EDT Cristal Menjivar RN documented as of this encounter Plan of Treatment Not on file documented as of this encounter Visit Diagnoses Not on filedocumented in this encounter Care Teams Principal Systems Architect Relationship Specialty Start Date End Date Pcp, Unknown PCP - General 03/25/23 11/30/23 Ernestine Chow MD PCP - General Family Medicine 12/01/23 Ernestine Chow MD Family Medicine 03/25/23 documented as of this encounter Additional Source Comments The information contained in this document represents components of the legal health record. It is not the complete legal health record.[facility]
[2025-01-02 21:57] VITALS: BP 120/54; PULSE 64; RESP 15; TEMP 36.4; O2SAT 100
[2025-01-02 22:45] LABS: Appearance Urine Cloudy; Glucose Urine UA Negative (Negative); PH 6.0 (5.0-9.0); Specific Gravity - Urine 1.025 (1.005-1.025)
[2025-01-02 23:02] LABS: Cannabinoid Screen Urine Not Detected (Not Detect)
--- NOTE | 2025-01-02 23:27 | ED_ITS ---
HPI - General Adult General Chief complaint: General Medical Stated complaint: weak,dizzy, neck stiff/tight radiates to jaw Time Seen by Provider: 01/02/25 23:25 Source: patient Mode of arrival: ambulatory Limitations: no limitations History of Present Illness ED Provider: MANISHA Ly HPI narrative: Patient seeks medical attention today for evaluation of lightheadedness. She reports having this go on for the last 3 days. She is endorsing a headache with some light sensitivity but denies any falls or trauma she denies any paresthesias but does feel generalized weakness. No body aches joint pain or rashes. Denies having any coughing nasal congestion but does have a slight sore throat. Reports that it is better now. She does admit to poor oral intake the last few days with a decrease in urination but denies any polyuria. She reports when she changes positions she she feels slightly like she might pass out but has not. She denies any palpitations chest pain or shortness of breath. Patient reports at baseline she has IBS with loose brown stool she does feel like it has been slightly more aggravated the last few days. She is without any abdominal cramping denies any bright red blood per rectum or dark stools. She feels thirsty now would like something to drink she feels she would be better if she got some IV fluids as it has made her feel better before in the past. Related Data Home Medications ?Medication ?Instructions ?Recorded ?Confirmed cetirizine 10 mg tablet 10 mg PO DAILY 11/09/2305/10 cholecalciferol (vitamin D3) 25 25 mcg PO BID 09/14/24 09/14/24 mcg (1,000 unit) capsule (Vitamin D3) clonidine HCl 0.1 mg tablet 0.1 mg PO DAILY PRN Anxiet y 09/14/24 09/14/24 ibuprofen 800 mg tablet 800 mg PO BID PRN Pain 09/1409/14/24 lorazepam 1 mg tablet 1 mg PO DIRECTED PRN Anxi ety 09/14/24 09/14/24 olanzapine 10 mg-samidorphan 10 mg 1 tab PO BEDTIME 09/14/24 tablet (Lybalvi) vitamin K2 45 mcg capsule 45 mcg PO BID 09/14/2409/14 Allergies Allergy/AdvReac Type Severity Reaction Status Date / Time pineapple Allergy Intermediate Hives Verified 01/02/25 19:17 tree nut Allergy Anaphylaxis Verified 01/02/25 19:17 banana AdvReac Intermediate Hives Verified 01/02/25 19:17 Review of Systems 2 Review of Systems: Yes all other systems are reviewed and are negative PMFSH Past Medical History Attestation statement: The following information was validated with the patient. Source: old records reviewed and nursing notes reviewed Medical History Schizoaffective disorder Continuous auditory hallucinations Suicidal ideations Depression Anxiety Surgical History History of esophagogastroduodenoscopy (EGD) Hx of wisdom tooth extraction No pertinent past surgical history Family History Family History Sister Fibromyalgia Maternal Aunt Fibromyalgia Family/Other Lupus Social History Social History Household Members: Family Household Members Other:: I can not go back there it's not safe Housing: Apartment Housing Other:: residential Do you presently have visiting nurse or other home services: No Alcohol intake: former Comment: chanelle Patient Tobacco Use Status: Never used Tobacco e-Cigarette/Vaping Use: Never Used Second Hand Smoke Exposure: No Substance Use Type: Marijuana Advance Directives: No Advance Directives Information Provided: Yes service: No Sexual orientation: Did not discuss Physical Exam ED Exam Exam: General: Appears in no acute distress, appears well nourished body habitus is morbidly obese, appears stated age. No septic or ill-appearing. Vitals reviewed normal, PMH/Social and Surgical hx reviewed including allergies and current medications. - reviewed for prior visits here and not read as it does not pertain to similar cc, no nuchal rigidity noted patient is seen lying supine moves around her limbs without difficulty no obvious skin mottling or rashes Head: Normocephalic, no obvious trauma or skin lesions noted. Eyes: EOMI, conjunctivae and sclerae are clear ENMT: dry oral mucosa, uvula is midline no trismus tongue is normal but dry Neck: trachea midline, no lymphadenopathy Cardiovascular: peripheral perfusion normal, Regular heart rate regular rhythm Respiratory: no respiratory distress lungs clear Abdomen: Obese abdomen nontender Extremities: warm and moving without difficulty Psych: Cooperative Neuro: Alert and oriented. Vital Signs: Vital Signs - 24 hr 01/02/25 19:14 01/02/25 21:57 01/03/25 01:06 Temperature 98.3 F 97.6 F 98.3 F Pulse Rate 73 64 87 Respiratory Rate 16 15 18 Blood Pressure 127/78 120/54 L 117/80 Pulse Oximetry 99 100 96 Oxygen Delivery Method Room Air Room Air Room Air BMI result Body Mass Index 26.1 Medications Administered Discontinued Medications Generic Name Dose Route Start Last Admin Trade Name Freq PRN Reason Stop Dose Admin Sodium Chloride 1,000 mls @ 999 mls/hr 01/02/25 23:58 01/03/25 04:00 Ns IV 01/03/25 00:58 Infused .Q1H1M ONE Infusion Medical Decision Making Medical Decision Making MDM Narrative: Well-appearing but morbidly obese 29-year-old female here today for evaluation of lightheadedness and sore throat. Upon arrival to ED patient is afebrile normotensive and well-appearing. From triage standpoint there was a urine toxicology ordered as well as a urinalysis and EKG. I saw patient at bedside she was sleeping comfortably supine. Based on her history and physical above I did add on basic labs and given that she had dry oral mucosa with complaints of a sore throat I did also order IV fluids. Patient is denying any other infectious symptoms chest x-ray was deferred. At this point differentials include dehydration, electrolyte imbalance, viral illness, UTI. PRISON score 0 strep testing not indicated no thrush in the mouth either. She is AO x4 GCS of 15 no falls no trauma. Patient has a history of IBS no blood in her stools or abdomen is soft and nontender albeit obese imaging of her abdomen and pelvis was deferred as well. 150am: Patient re-evaluated at bedside she states that she is clinically feeling much improved. Her workup is largely unremarkable and reassuring. She is able tolerate p.o. fluids voiding regularly I did not feel she required any further workup today she was given ED precautions patient demonstrated verbal understanding of the plan and agreed she was discharged home stable Differential Diagnosis Differential Diagnoses: The differential diagnosis associated with the presentation includes see MDM Admission/Observation Consideration of admission/observation: Escalation of care including admission/observation considered Patient would have been admitted to the hospital had her work up had any findings where hospital admission was appropriate and her clinical presentation warranted hospital admission. Lab Data MDM Lab Attestation statement: I reviewed the patient's lab results. 01/03/25 00:23 01/03/25 01:03 Labs: Lab Results 01/02/25 01/03/25 01/03/25 Range/Units 20: 00:23 00:29 WBC 9.0 (4.8-10.8) X10*3/uL RBC 4.69 (4.20-5.50) X10*6/uL Hgb 13.7 (12.0-16.0) g/dl Hct 40.6 (37.0-47.0) % MCV 86.6 (80.0-98.0) fL MCH 29.2 (27.0-33.0) pg MCHC 33.7 (31.0-35.0) g/dl RDW 11.9 (11.0-16.0) % Plt Count 371 (160-400) X10*3/uL MPV 9.4 (9.4-12.3) fL Immature Gran % (Auto) 0.1 (0.0-0.4) % Neut % (Auto) 47.5 (45-73) % Lymph % (Auto) 43.3 H (20-40) % [place] % (Auto) 5.9 (2-11) % Eos % (Auto) 2.8 (0-4) % Baso % (Auto) 0.4 (0-2) % Lymph # (Auto) 3.9 (1.2-4.9) X10*3/uL [place] # (Auto) 0.5 (0.1-1.2) X10*3/uL Eos # (Auto) 0.3 (0.0-0.4) X10*3/uL Baso # (Auto) 0.0 (0.0-0.2) X10*3/uL Abs Immat Gran (auto) 0.01 (0.00-0.03) X10*3/uL Absolute Neuts (auto) 4.3 (2.0-8.3) x10*3/uL Absolute Nucleated RBC 0.000 (0.0-0.012) X10*3/uL Nucleated RBC % (auto) 0.0 (0.0-0.2) /100WBC Sodium (135-145) mmol/L Potassium (3.3-5.1) mmol/L Chloride (96-108) mmol/L Carbon Dioxide (22-29) mmol/L Anion Gap (12-20) BUN (9-16) mg/dL Creatinine (0.5-1.4) mg/dL Estim Creat Clear Calc Estimated GFR POC Glucose 82 (60-115) mg/dL Random Glucose (60-115) mg/dL Calcium (8.4-10.2) mg/dL Urine Color Yellow Urine Appearance Cloudy Urine pH 6.0 (5.0-9.0) Ur Specific [place] 1.025 (1.005-1.025) Urine Protein Negative (Neg-Trace) mg/dL Urine Glucose (UA) Negative (Negative) mg/dL Urine Ketones Trace (Negative) mg/dL Urine Blood Negative (Negative) Urine Nitrite Negative (Negative) Ur Leukocyte Esterase Negative (Negative) Urine Opiates Screen Not Detected (Not Detect) Ur Buprenorphine Scrn Not Detected (Not Detect) ng/mL Ur Oxycodone Screen Not Detected (Not Detect) ng/mL Urine Methadone Screen Not Detected (Not Detect) ng/mL Urine Fentanyl Screen Not Detected (Not Detect) Ur Barbiturates Screen Not Detected (Not Detect) Ur Phencyclidine Scrn Not Detected (Not Detect) Ur Amphetamines Screen Not Detected (Not Detect) U Benzodiazepines Scrn Not Detected (Not Detect) Urine Cocaine Screen Not Detected (Not Detect) U Marijuana (THC) Screen Not Detected (Not Detect) COVID-19 ([facility]) (Negative) COVID-19 Clin Com 01/03/25 01/03/25 Range/Units 01:03 02:57 WBC (4.8-10.8) X10*3/uL RBC (4.20-5.50) X10*6/uL Hgb (12.0-16.0) g/dl Hct (37.0-47.0) % MCV (80.0-98.0) fL MCH (27.0-33.0) pg MCHC (31.0-35.0) g/dl RDW (11.0-16.0) % Plt Count (160-400) X10*3/uL MPV (9.4-12.3) fL Immature Gran % (Auto) (0.0-0.4) % Neut % (Auto) (45-73) % Lymph % (Auto) (20-40) % [place] % (Auto) (2-11) % Eos % (Auto) (0-4) % Baso % (Auto) (0-2) % Lymph # (Auto) (1.2-4.9) X10*3/uL [place] # (Auto) (0.1-1.2) X10*3/uL Eos # (Auto) (0.0-0.4) X10*3/uL Baso # (Auto) (0.0-0.2) X10*3/uL Abs Immat Gran (auto) (0.00-0.03) X10*3/uL Absolute Neuts (auto) (2.0-8.3) x10*3/uL Absolute Nucleated RBC (0.0-0.012) X10*3/uL Nucleated RBC % (auto) (0.0-0.2) /100WBC Sodium 140 (135-145) mmol/L Potassium 3.8 (3.3-5.1) mmol/L Chloride 109 H (96-108) mmol/L Carbon Dioxide 25 (22-29) mmol/L Anion Gap 10 L (12-20) BUN 10 (9-16) mg/dL Creatinine 0.66 (0.5-1.4) mg/dL Estim Creat Clear Calc 149.6 Estimated GFR > 60 POC Glucose (60-115) mg/dL Random Glucose 97 (60-115) mg/dL Calcium 9.0 (8.4-10.2) mg/dL Urine Color Urine Appearance Urine pH (5.0-9.0) Ur Specific [place] (1.005-1.025) Urine Protein (Neg-Trace) mg/dL Urine Glucose (UA) (Negative) mg/dL Urine Ketones (Negative) mg/dL Urine Blood (Negative) Urine Nitrite (Negative) Ur Leukocyte Esterase (Negative) Urine Opiates Screen (Not Detect) Ur Buprenorphine Scrn (Not Detect) ng/mL Ur Oxycodone Screen (Not Detect) ng/mL Urine Methadone Screen (Not Detect) ng/mL Urine Fentanyl Screen (Not Detect) Ur Barbiturates Screen (Not Detect) Ur Phencyclidine Scrn (Not Detect) Ur Amphetamines Screen (Not Detect) U Benzodiazepines Scrn (Not Detect) Urine Cocaine Screen (Not Detect) U Marijuana (THC) Screen (Not Detect) COVID-19 ([facility]) Negative (Negative) COVID-19 Clin Com See Note Independent Interpretation I performed an independent interpretation of an: EKG Interpretation: EK bpm; No overt evidence of STEMI. No evidence of Brugada's sign, delta wave, epsilon wave, significantly prolonged QTc, or malignant arrhythmia Tests considered The following testing was considered but not selected: Would have considered cardiac labs, CXR d dimer had patient's presentation been concerning for infectious etiology or cardiac etiology or had there been any syncope but there was not therefore deferred Chronic Conditions Patient?s care impacted by: Other (morbid obesity) Social Determinants Patient?s care significantly limited by Social Determinants of Health including: Other Social Determinant of Health Discharge Plan Discharge Clinical Impression: Acute dehydration, Headache, Diarrhea, Acute serous otitis media of right ear without rupture Patient Disposition: Home, Self-Care Instructions: Dehydration (DC), Fluid In The Ear (Serous Otitis Media) (ED) Prescriptions: No Action clonidine HCl 0.1 mg tablet 0.1 mg PO DAILY PRN (Reason: Anxiety) ibuprofen 800 mg tablet 800 mg PO BID PRN (Reason: Pain) lorazepam 1 mg tablet 1 mg PO DIRECTED PRN (Reason: Anxiety) Rx Instructions: take 1 tab TID PRN x3 days then BID PRN x2 days then once daily PRN Lybalvi 10-10 mg tablet 1 tab PO BEDTIME cholecalciferol (vitamin D3) [Vitamin D3] 25 mcg (1,000 unit) Capsule 25 mcg PO BID Rx Instructions: Take 1 capsule by mouth twice a day after meals vitamin K2 45 mcg Capsule 45 mcg PO BID Rx Instructions: Take 1 capsule by mouth twice a day after meals cetirizine 10 mg tablet 10 mg PO DAILY [facility], [facility] Referral Note: ED follow up Interventions: ED Discharge Assessment Last Done: 01/03/25 04:05 Discharge Date/Time: 01/03/25 04:05 Print Language: Moroccan
[2025-01-03 00:27] LABS: MANUAL DIFF FLAG NO
[2025-01-03 00:33] LABS: Hematocrit 40.6 % (37.0-47.0); Hemoglobin 13.7 g/dl (12.0-16.0); Imm Gran Abs Auto 0.01 X10*3/uL (0.00-0.03); Imm Gran Pct Auto 0.1 % (0.0-0.4); Lymphocytes Absolute Auto 3.9 X10*3/uL (1.2-4.9); Mean Corpuscular HGB Conc 33.7 g/dl (31.0-35.0); Mean Corpuscular Hemoglobin 29.2 pg (27.0-33.0); Mean Corpuscular Volume 86.6 fL (80.0-98.0); NRBC Abs Auto 0.000 X10*3/uL (0.0-0.012); NRBC Pct Auto 0.0 /100WBC (0.0-0.2); Platelet Count 371 X10*3/uL (160-400); Red Blood Count 4.69 X10*6/uL (4.20-5.50); White Blood Count 9.0 X10*3/uL (4.8-10.8)
[2025-01-03 01:06] VITALS: BP 117/80; PULSE 87; RESP 18; TEMP 36.8; O2SAT 96
[2025-01-03 01:22] LABS: Anion Gap 10 (12-20); Blood Urea Nitrogen 10 mg/dL (9-16); Calcium 9.0 mg/dL (8.4-10.2); Carbon Dioxide 25 mmol/L (22-29); Chloride 109 mmol/L (96-108); Creatinine Clr Calc Pharmacy 149.6; Estimated Glomerular Filt Rate > 60; Potassium 3.8 mmol/L (3.3-5.1); Sodium 140 mmol/L (135-145)
[2025-01-03 03:22] LABS: COVID-19 Test Negative (Negative); IDNOW Serial# 6674DD1D
[2025-01-03 04:05] VITALS: BP 159/85; PULSE 93; RESP 20; TEMP 36.7; O2SAT 100
[2025-01-05 16:55] LABS: Glucose, Whole Blood 82 mg/dL (60-115)
== END 2025-01-03 04:05 | disposition home or self-care (01) ==
PROVIDERS: Physician Assistant Medical; Emergency Provider Emergency Medicine Emergency Medical Services
DX: E86.0 Dehydration (principal); R51.9 Headache, unspecified; H65.01 Acute serous otitis media, right ear; R42 Dizziness and giddiness; R11.0 Nausea; Z11.52 Encounter for screening for COVID-19; Z79.899 Other long term (current) drug therapy; Z51.81 Encounter for therapeutic drug level monitoring
CPT/HCPCS: 36415; 80048; 80307; 81003; 82947; 85025; 87635; 93005; 96360; 96361; 99284

== ENCOUNTER → 2025-01-02 19:19 | Outpatient (BNV) | payer MEDICARE, MEDICAID, SELFPAY | PROVIDERS: Emergency Provider Emergency Medicine Emergency Medical Services; Visit Provider Internal Medicine | DX: R42 Dizziness and giddiness (principal) | CPT/HCPCS: 93010 ==

== ENCOUNTER 2025-02-17 08:25 | Outpatient (RCR) | payer MEDICARE, MEDICAID, SELFPAY ==
--- NOTE | 2025-02-19 14:42 | HO.PHP ---
Sanitation Manager attempted to call Isradenae twice, voicemail left for a return call to confirm attendance to program. Sanitation Manager attempted to call Isradenae's listed emergency contact, Edward which went straight to voicemail, voicemail was left and no return call was received. Sanitation Manager contacted the [place] [employer] to conduct a wellness check on Davin. [facility] reported that they were sending out officers for a wellness check and will call principal technical writer back once it was completed. [place] was called again by principal technical writer they attempted a wellness check twice on Davin, there were cars in the driveway but no answer and they were unable to make contact with her. Sanitation Manager then attempted to call Davin again and left a voicemail.
--- NOTE | 2025-02-20 10:13 | HO.PHP ---
This chief underwriter reached out to Davin, who prefers Gwen twice in which there was no response. Her emergency contact Mani was also contact in which a message was left on the importance of speaking with the pt. Gwen did call this chief underwriter back stating that it has been a nightmare the past couple days, and I have been in crisis. This chief underwriter explored what she meant by that. She described going to a service provider meeting after her intake at [facility] on Sunday (02/17/25) due to her moving tomorrow (02/21/25). She relayed her PT1 will need a renewal with her new address. She shared that her phone has been on silent, she has depression and not functioning, but she has been able to do some things with her move. This chief underwriter explored safety concerns in which she reported thoughts of suicide, but no plans and no intent. She was able to relay this in her provider meeting with [facility] and [facility]. This chief underwriter confirmed she knows the crisis number to call if needed. She reported she does not want to do the program right now due to everything being so overwhelming. She also confirmed she will reach out to her OP therapist to set up an apt with her as she was not going to see her while in the program. She relayed she was excited to start program, and she would like to return once things have settled down more. This chief underwriter relayed the process in doing so.
== END 2025-02-17 23:59 | disposition home or self-care (01) ==
LOC: HO.PHPA 08:25
PROVIDERS: Visit Provider Psychiatry & Neurology Psychiatry
DX: F25.0 Schizoaffective disorder, bipolar type (principal); F43.10 Post-traumatic stress disorder, unspecified; F60.3 Borderline personality disorder; F84.0 Autistic disorder
CPT/HCPCS: 90791

== ENCOUNTER 2025-03-09 13:16 | Emergency (ER) | payer MEDICARE, MEDICAID, SELFPAY ==
[2025-03-09 13:19] VITALS: PULSE 108; RESP 20; TEMP 36.1; O2SAT 97; BMI 52.4
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
--- NOTE | 2025-03-09 13:24 | ECG_ITS ---
Test Reason : hx of prolonged qt Blood Pressure : */* mmHG Vent. Rate : 97 BPM Atrial Rate : 97 BPM P-R Int : 170 ms QRS Dur : 76 ms QT Int : 338 ms P-R-T Axes : 55 25 38 degrees QTcB Int : 429 ms Normal sinus rhythm Normal ECG When compared with ECG of 02-Jan-2025 19:19, No significant change was found Referred By: Gina Taveras Electronically Signed By: Caleb Patel
[2025-03-09 13:47] LABS: MANUAL DIFF FLAG NO
[2025-03-09 13:49] LABS: Hematocrit 40.4 % (37.0-47.0); Hemoglobin 13.4 g/dl (12.0-16.0); Imm Gran Abs Auto 0.02 X10*3/uL (0.00-0.03); Imm Gran Pct Auto 0.2 % (0.0-0.4); Lymphocytes Absolute Auto 2.0 X10*3/uL (1.2-4.9); Mean Corpuscular HGB Conc 33.2 g/dl (31.0-35.0); Mean Corpuscular Hemoglobin 29.3 pg (27.0-33.0); Mean Corpuscular Volume 88.2 fL (80.0-98.0); NRBC Abs Auto 0.000 X10*3/uL (0.0-0.012); NRBC Pct Auto 0.0 /100WBC (0.0-0.2); Platelet Count 375 X10*3/uL (160-400); Red Blood Count 4.58 X10*6/uL (4.20-5.50); White Blood Count 8.8 X10*3/uL (4.8-10.8)
[2025-03-09 14:09] LABS: Acetaminophen LAB < 3 mcg/mL (<30); Alanine Aminotransferase 20 U/L (0-31); Albumin Level 4.3 g/dL (3.5-5.0); Alkaline Phosphatase 87 U/L (39-117); Anion Gap 10 (12-20); Aspartate Amino Transferase 21 U/L (5-31); Blood Urea Nitrogen 10 mg/dL (9-16); Calcium 9.1 mg/dL (8.4-10.2); Carbon Dioxide 29 mmol/L (22-29); Chloride 108 mmol/L (96-108); Creatinine Clr Calc Pharmacy 176.7; Estimated Glomerular Filt Rate > 60; Potassium 3.8 mmol/L (3.3-5.1); Salicylate < 5.0 mg/dL (15-30); Sodium 143 mmol/L (135-145); Total Protein 7.5 g/dL (6.5-8.0)
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
[2025-03-09 17:16] LABS: Appearance Urine Clear; Glucose Urine UA Negative (Negative); PH 6.0 (5.0-9.0); Specific Gravity - Urine >= 1.030 (1.005-1.025)
[2025-03-09 17:17] LABS: UPreg QC Valid YES
[2025-03-09 18:17] LABS: Cannabinoid Screen Urine Not Detected (Not Detect)
[2025-03-09 18:29] VITALS: BP 130/75; PULSE 108; RESP 20; TEMP 36.1; O2SAT 97
--- OUTSIDE RECORDS SUMMARY | 2025-03-09 18:34 | XMS_ITS | Encounter Summary ---
Author Organization [facility] Address [address] [facility] [address] [place] [phone] Phone Care Team Providers Care Money Manager Name Role Phone Pcp, Unknown Primary Care Provider Ernestine Sanchez MD Primary Care Pr ovider Pcp, Unknown Primary Care Provider Ernestine Sanchez MD Unavailable Ernestine Chow MD Primary Care Pr ovider Encounter Details Date Type Department Care Team (Late st Contact Info) Description 06/10/2022 Procedure Pass [facility], Ct Scan - [address] [address] Social History Tobacco Use Types Packs/Day Years [...] 06/10/2022 1:05 PM Kiki Arnold, KENNA * [place] Suicide Severity Rating Scale (Screener/Recent Self-Report) Question [...] documented as of this encounter Care Teams Money Manager Relationship Specialty Start Date End Date Pcp, [...] It is not the complete legal health record.[facility]
--- OUTSIDE RECORDS SUMMARY | 2025-03-09 18:34 | XMS_ITS | Clinical Summary ---
Author Organization [facility] Address [address] [address] Phone Care Team Providers Care Continuous Improvement Intern Name Role Phone Ernestine Chow MD Unavailable Ernestine Chow MD Primary Care Pr ovider Allergies Active Allergy Reactions Criticality Noted Date Comments Banana 03/25/2023 Tree Nuts 06/10/2022 [place] 07/24/2023 Medications perphenazine (TRILAFON) 8 MG tablet [...] (#1) 2024 01/01/2020 COVID-19 VACCINE ( - 2024-2 6 season) 2024 Adult Td,Tdap Booster 11/08/2031 11/07/2021 [...] topic Medical Devices Not on file [facility] & B [place] MED[place] A [place] [address] [address] [place] [address] MEDICARE PART A & B Care Teams Continuous Improvement Intern Relationship Specialty Start Date End Date Ernestine Chow MD PCP - General Family Medicine 12/01/23 Ernestine Chow MD Family Medicine 03/25/23 Additional Source Comments The information contained in this document represents components of the legal health record. It is not the complete legal health record.[facility]
--- OUTSIDE RECORDS SUMMARY | 2025-03-09 18:34 | XMS_ITS | Encounter Summary ---
Author Organization [facility] Address [address] [address] Phone Care Team Providers Care Machine Spreader Name Role Phone Pcp, Unknown Primary Care Provider Unavailabl e Ernestine Chow MD Unavailable Ernestine Chow MD Primary Care Pr ovider Encounter Details Date Type Department Care Team (Late st Contact Info) Description 07/24/2023 Procedure Pass [facility], Ct Scan - [address] [address] Social History Tobacco Use Types Packs/Day Years [...] 6:26 PM EDT Cristal Menjivar, RN * [place] Suicide Severity Rating Scale (Screener/Recent Self-Report) Question [...] on filedocumented in this encounter Care Teams Machine Spreader Relationship Specialty Start Date End Date Pcp, Unknown PCP - General 03/25/23 11/30/23 Ernestine Chow MD PCP - General Family Medicine 12/01/23 Ernestine Chow MD Family Medicine 03/25/23 documented as of this encounter Additional Source Comments The information contained in this document represents components of the legal health record. It is not the complete legal health record.[facility]
--- OUTSIDE RECORDS SUMMARY | 2025-03-09 18:34 | XMS_ITS | Clinical Summary ---
Author Organization [facility] Address [address] [id number] Care Team Providers Care Tilting Saw Operator Name Role Phone Ref, Hasnopcp Primary Care Provider Unavailabl e Allergies Active Allergy Reactions Criticality Noted Date Comments Cashew Nut Anaphylaxis High 01/13/2024 Pecan Nut Anaphylaxis High 01/13/2024 Pistachio Nut Anaphylaxis High 01/13/2024 [place] Anaphylaxis High 01/13/2024 Medications * This document [...] Date Last Done Comments HIV Screening 1997 Pap Smear 1997 Alcohol/Substance Use Screening 04/16/2024 Influenza Vaccine (#1) 2024 2, 01/01/2020, 05/12/2019 COVID-19 Vaccine ( season) 2024 02/11/2021, 06/08/2020, 05/18/2020 DTaP,Tdap,and Td Vaccines (10 - Td or Tdap) 06/11/2033 06/11/2023, 11/07/2021, 08/03/2016, Additional history exists Hepatitis B Vaccines Completed 07/06/1998, 1997, 1997 Varicella Vaccines Completed 11/26/2008, 09/25/1998 Pneumococcal Vaccine: Pediatric (0-5 Years) and At-Risk Patients (6-50 Years) Aged Out 04/14/2018, 10/19/2017 No longer eligibl e based on patient's age to complete this topic Insurance MEDICARE [facility] Care Teams Tilting Saw Operator Relationship Specialty Start Date End Date Ref, Hasnopcp DO NOT EDIT THIS RECORD VIA PROVIDER ON THE FLY PCP - General Health Editor 01/12/24
--- OUTSIDE RECORDS SUMMARY | 2025-03-09 18:34 | XMS_ITS | Clinical Summary ---
Author Organization [facility] Address [address] [place] [address] Care Team Providers Care Manipulative Therapy Specialist Name Role Phone Ernestine Chow MD Primary Care Pr ovider Allergies Active Allergy Reactions Criticality Noted Date Comments Banana Extract Allergy Skin Test 03/25/2023 Gabapentin Other (See Comments) Medium 04/26/2023 Hallucinations Nuts Itching,Other (See Comments) High 09/20/2017 Mouth itchy with tongue swelling Tree Nuts 06/10/2022 [place] 07/24/2023 Medications Medication Sig Dispensed Refills Start [...] age to complete this topic Care Teams Manipulative Therapy Specialist Relationship Specialty Start Date End Date Ernestine Chow MD [address] [place] [address] PCP - General 05/16/23
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
== END 2025-03-09 18:32 | disposition home or self-care (01) ==
PROVIDERS: Physician Assistant Medical; Emergency Provider Emergency Medicine; PCP Family Medicine
DX: F32.A Depression, unspecified (principal); F84.0 Autistic disorder; R45.851 Suicidal ideations; F25.9 Schizoaffective disorder, unspecified
CPT/HCPCS: 36415; 80053; 80143; 80179; 80307; 81003; 81025; 85025; 93005; 99284; 99285; S9485

== ENCOUNTER → 2025-03-09 13:24 | Outpatient (BNV) | payer MEDICARE, MEDICAID, SELFPAY | PROVIDERS: Emergency Provider Emergency Medicine; PCP Family Medicine; Visit Provider Internal Medicine Cardiovascular Disease | DX: Z13.6 Encounter for screening for cardiovascular disorders (principal) | CPT/HCPCS: 93010 ==

== ENCOUNTER 2025-04-03 13:00 | Outpatient (RCR) | payer MEDICARE, MEDICAID, SELFPAY ==
[2025-03-23 11:59] VITALS: BMI 55.2
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
--- NOTE | 2025-03-24 16:15 | HO.PHP ---
[facility] staff member explored with Davin why she left group 1. Davin was tearful and expressed she was feeling anxious and having a panic attack. [facility] staff member explored if she is aware what is creating that panic attack. Davin said she will be starting her cylce soon and this often happens the day before her cylce starts. [facility] staff allowed Davin space to process what she was feeling and engaged in reflective listening. Davin voiced that she is struggling with negative thoughts of she doesn't know why her brain is like this, she wants this to end, why don't you kill yourself. Davin disclosed that she has no plan or intent to act on anything and is safe. [facility] staff member was receptive and encouraged Davin to try to engage within the remainder of the groups and stated if she is finding it too challenging to please let a staff member know. Davin appeared receptive.
--- NOTE | 2025-03-25 16:14 | HO.PHP ---
At roughly 1:10 pm this automatic typewriter inspector met with Davin (lowell Hidalgo) to review her treatment plan and goals. Pt expressed concern about 2 diagnoses listed in the treatment plan, and requested them to be removed. Pt denied hx of symptoms relating Schizoaffective disorder and denied meeting full criteria for BPD, but reports traits relating to PTSD and due to being in and out of hospitals since the age of 13. Davin (lowell Hidalgo) stated both have been assigned to her in the past by temporary providers not her [place] [facility] providers and as a result continue to follow her when she presents for mental health care. Feels these diagnosis have affected how she is viewed and treated by providers. Pt politely declined to sign the plan until it has been updated. Pt reports her presenting problems are related to depression and situational stressors, reports she is currently being evicted and afraid of being homeless, triggering SI thoughts and CPTSD sx's. Pt reports depression as her primary presenting problem, agreed with MDD, severe, recurrent episode, PTSD, Autism and JUSTEN.
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
--- NOTE | 2025-03-26 15:06 | HO.PHP ---
Pt's case has been opened and reviewed in treatment team.
--- NOTE | 2025-03-27 13:34 | HO.PHP ---
PHP staff member followed up with Davin after group three due to her reporting thoughts of SI with a plan and no intent. Davin disclosed that this morning she had more of a plan, which was to utilize CO2. Davin said that this plan has been dissipating and going into just SI thoughts due to having good conversations with people here. Davin noted that she is future goal oriented and is looking forward to this weekend, where she will be going to her families house to celebrate her dogs birthday. Davin does have concerns around her male roommate but is going to reach out to [facility] to make them aware of her concerns. Overall, Davin was able to contract for safety and is looking forward to the upcoming weekend.
--- NOTE | 2025-03-30 12:36 | HO.PHP ---
This designer writer met with Davin Hidalgo due to not signing her treatment plan along with aftercare planning. She stated she has an apt tomorrow and next Sunday for a TMS consult with [employer] in [place], [place]. She described her CHD outreach team working with the soda fountain manager to alleviate some issues. This designer writer and the pt explored what therapies have been effective in the past which are preferred with a male counselor, IFS, trauma-informed, and DBT. She relayed doing DBT with Bautista Kearns in the past, and this was effective, but she did not complete the modules due to events in her life. Treatment plan diagnoses were reviewed in which the diagnosis requirement for DBT is Borderline Personality disorder. In light of this, Davin Hidalgo stated she is in agreement with this dx for treatment purposes. Will follow-up with DBT referral for aftercare. She declined signing the treatment plan as is without provision.
--- NOTE | 2025-03-30 15:17 | HO.PHP ---
PHP staff member followed up with Davin towards the end of the day due to her reporting SI with a plan and no intent. Davin disclosed that she has the plan of CO2 poisoining and shared that she recently found that there were pills in the bag of items she has to do engage in this act. Davin said those pills were medications she took with her last suicide attempt and she does not want to utilize them again. Davin shared that she believes her thought of putting them in the bag is not to overdose but to help her stay calm prior to engaging in the act of utilizing CO2. Davin shared she has no intent to do that today she had a good last group and received a good email from her previous place of employment sharing how she was an asset. Dr. Kee came into further assess Davin, in which she attempted to safety plan with Davin around discarding the bag of items. Davin shared the guilt she has with reaching out to her support, her brother, of taking the bag. Davin was future oriented and shared she has a consult tomorrow for TMS services and will be meeting with her CHD worker as well around housing. Davin also will be starting a DBT group that she is looking forward to. Please review Dr. Kee's note for further information.
--- NOTE | 2025-03-30 22:41 | P.PNPSP_ITS ---
Subjective Subjective Date of Service: 03/30/25 Reason For Visit: anxiety Interim History: Patient seen for follow up in group room C. No major events or acute behavioral issues Continues to vent about current predicament. with same presentation depressed, anxious, but not interested in treatment Attempt to explore other trmt modailities, but patient declines. SI intermittent/situational, conditional if she gets evicted with no options. No thoughts of harming self today. Remains talkative and difficult to redirect. . Attending Groups: Yes Review of Systems Acute medical concerns: No Mental Status Exam Mental Status Exam Narrative: Alert, oriented, in no acute distress. Calm, semicooperative, superifically engaged. Talkative, mildly pressured, but redirectable. No psychomotor agitation or neurovegetative retardation. Eye contact maintained. Mood depressed, affect constricted. Speech normal. Thought process linear, coherent. Thought content related to stressors, transient hopelessness, denies any thoughts of harming self or others at this time . DEnies AI or HI. No paranoia or delusional content elicited. No evidence of psychosis. Insight and judgment - fair but adequate. Diagnostics Vital Signs (24Hr): BMI result Body Mass Index 55.2 Assessment & Plan Assessment & Plan (1) Borderline personality disorder: Status: Acute Code(s): F60.3 - Borderline personality disorder (2) PTSD (post-traumatic stress disorder): Status: Acute Code(s): F43.10 - Post-traumatic stress disorder, unspecified (3) History of schizoaffective disorder: Status: Acute Code(s): Z86.59 - Personal history of other mental and behavioral disorders Plan patient declines to explore any pharmacological treatment options continue milieu therapy/PHP Patient educated on: diagnosis and medication risk/benefits Informed Consent: understands Reason for contiued partial hosp. stay Substantial Risk for: med/psych decompensation Certification I certify that partial hospital treatment is medically necessary due to the symptoms and problems resulting from the patient's mental illness and the failure to treat the patient at the partial hospital level of care would likely result in the patient requiring inpatient psychiatric care which could not be prevented at a less intensive level of care. Total time managing care of this patient today __30__ minutes. Discharge Plan Discharge Attending provider: Tiff Kee Medications: No Action ibuprofen 800 mg tablet 800 mg PO BID PRN (Reason: Pain) cholecalciferol (vitamin D3) 50 mcg (2,000 unit) tablet 50 mcg PO DAILY Stand Alone Forms: Patient Portal Discharge page Patient Education: ADHD in Adults (DC), Depression (ED), Borderline Personality Disorder (DC), Anxiety (ED) Print Language: Icelandic
--- NOTE | 2025-04-01 12:49 | HO.PHP ---
At roughly 9:30 am, screenplay writer met with Davin (goes by Gwen) per her request. Pt was tearful, expressed anxiety and distress over having to leave her current residence. Pt was supported to reframe her negative statements, provided validation for her efforts and encouragement to continue working with her team on housing despite frustrations and PTSD triggers. Pt reports she will be placed in an Air BNB by her landlord/DMH until 04/14/25 while her [facility] team and herself work to locate permanent housing. Davin was provided with a list of housing/detention resources as well as other community resources and emergency services to explore, should she need more options. Pt expressed gratitude, calmed and returned to group.
--- NOTE | 2025-04-01 16:32 | HO.PHP ---
At roughly 1:30 pm pt left group, stated she felt anxious and needed space to calm. Stated she did not know if she will return to [facility] tomorrow. Stated she found groups helpful and felt supported by peers but feels being in group is difficult for her and increases her low self-worth, increases her anxiety and feels she has a lot of other things she need to be working on. Pt was provided support and encouraged to return tomorrow to complete her discharge and meet with the doctor to address aftercare. Pt stated she was not sure if she will be able to, depends on where she is living. Pt has a meeting with her landlord today to discuss moving into an Air BNB temporarily, as noted in the previous note. States she has PT1 so will not able to switch her transportation and feels overwhelmed with all that she has going so feels it may be too much. Pt was encouraged to think about it, pt stated she will, and agreed to try to call [facility] in the morning if she can not make it in to programming. Pt was reminded of the wellness check we will have to conduct if she does not arrive or call. Davin was provided with aftercare information (per her request) in case she does not return, eg. [facility] contact info for DBT and [facility] walkin information for OP services at [address] [place] [address] Dr. Snell [place] [phone]. Pt reported some SI thoughts today, denied a plan and denied intent in wrap-up group today, when asked again if she felt safe, pt stated she did not feel safe due to her housing instability then added but I am not going to do anything drastic declined needing to be assessed for safety. Expressed self-awareness of her current emotions, future-oriented despite feelings of hopelessness surrounding her housing eg. plans to contact [employer] next week and her [facility] worker Kristan later or tomorrow. After discussing aftercare options and her concerns about her meeting later, pt was visibly calmer before leaving for the day.
--- NOTE | 2025-04-03 23:34 | P.PNPSP_ITS ---
Subjective Subjective Date of Service: 04/03/25 Reason For Visit: anxiety Interim History: Patient seen for follow-up, anticipating discharge at the end of program today.? Patient having anxiety about leaving program, making veiled SI statements to staff conditional to staying longer at [facility]. WHen meeting with this senior grant writer she was evasive around this issue, but insisted that she was not a threat to herself at this time and added she did not need to be evaluated by crisis. She expressed frustration about her situation. Insight is limited but appears to be in behavioral control and though initially obtuse around SI, was able to clarify that she does not wish to be , but is fearful of potentially getting evicted and would like more help from her supports. denies thoughts of harming self or others at this time. Denies any aggressive ideation or HI. Denies any paranoia or AH or VH. Sleep, appetite, energy stable. Mental Status Exam Mental Status Exam Narrative: Alert, oriented, in no acute distress. Calm, semicooperative, superifically engaged. Talkative, mildly pressured, but redirectable. No psychomotor agitation or neurovegetative retardation. Eye contact maintained. Mood anxious, affect anxious. Speech normal. Thought process linear, coherent. Thought content related to stressors, transient hopelessness, conditional SI initiially but without plan or intention to act, denies any thoughts of harming self or others at this time . Denies AI or HI. No paranoia or delusional content elicited. No evidence of psychosis. Insight and judgment - fair but adequate. Diagnostics Vital Signs (24Hr): BMI result Body Mass Index 55.2 Assessment & Plan Assessment & Plan (1) Borderline personality disorder: Status: Acute Code(s): F60.3 - Borderline personality disorder (2) PTSD (post-traumatic stress disorder): Status: Acute Code(s): F43.10 - Post-traumatic stress disorder, unspecified (3) History of schizoaffective disorder: Status: Acute Code(s): Z86.59 - Personal history of other mental and behavioral disorders Plan Discharge from [facility] Continue regular medications? Refills sent to pharmacy Will defer further medication management to outpatient provider *Safety plan reviewed *Discharge diagnoses, treatment course, discharge plan have been reviewed with patient (including medication regime, medication management, potential side effects) as well as treatment rationale were also revisited *Discharge paperwork signed and given to patient, copy sent for scanning to chart Patient educated on: diagnosis and medication risk/benefits Informed Consent: understands Reason for contiued partial hosp. stay Substantial Risk for: stable for discharge Certification I certify that partial hospital treatment is medically necessary due to the symptoms and problems resulting from the patient's mental illness and the failure to treat the patient at the partial hospital level of care would likely result in the patient requiring inpatient psychiatric care which could not be prevented at a less intensive level of care. Total time managing care of this patient today __30__ minutes. Discharge Plan Discharge Attending provider: Tiff Kee Medications: No Action ibuprofen 800 mg tablet 800 mg PO BID PRN (Reason: Pain) cholecalciferol (vitamin D3) 50 mcg (2,000 unit) tablet 50 mcg PO DAILY Stand Alone Forms: Patient Portal Discharge page Patient Education: ADHD in Adults (DC), Depression (ED), Borderline Personality Disorder (DC), Anxiety (ED) Print Language: Polish
== END 2025-04-08 13:00 | disposition home or self-care (01) ==
LOC: HO.PHPA 13:00
PROVIDERS: Visit Provider Psychiatry & Neurology Psychiatry
DX: F60.3 Borderline personality disorder (principal); F43.10 Post-traumatic stress disorder, unspecified; Z86.59 Personal history of other mental and behavioral disorders; Z91.51 Personal history of suicidal behavior; Z62.810 Personal history of physical and sexual abuse in childhood
CPT/HCPCS: 90791; 90853

== ENCOUNTER → 2025-04-03 13:00 | Outpatient (BNV) | payer MEDICARE, MEDICAID, SELFPAY | PROVIDERS: Visit Provider Psychiatry & Neurology Psychiatry | DX: F60.3 Borderline personality disorder (principal); F43.10 Post-traumatic stress disorder, unspecified; Z86.59 Personal history of other mental and behavioral disorders | CPT/HCPCS: 90792; 99213 ==